=== PATIENT | male | born 1945 | race Two or more races ===

== ENCOUNTER 2020-04-15 04:49 | Inpatient (IN) | payer BC, MEDICARE ==
[2020-04-15] VITALS (9 sets, daily range): BP systolic 145–170; BP diastolic 64–77
[~2020-04-15] VITALS: Ht 177.8 cm; Wt 96.6 kg
--- NOTE | 2020-04-15 08:14 | NUR ---
NURSE NOTES: Received Pt as direct admit from [facility], report from NU Juarez. Pt is in stable condition. No S/S or complaint of distress at this time. AOx4. Asked Dr. Pelletier for admission orders. awaiting response.
[2020-04-15] MEDS ORDERED: BENAZEPRIL HCL20 MG ORAL (09:49)
[2020-04-15] MEDS ORDERED: FLOMAX0.4 MG ORAL (09:49)
[2020-04-15] MEDS ORDERED: OXYBUTYNIN CHLOR5 M2 PO (09:49)
[2020-04-15] MEDS ORDERED: METFORMIN HCL500 M1 ORAL (09:49)
[2020-04-15] MEDS ORDERED: ATORVASTATIN CA20 MG ORAL (09:50)
[2020-04-15] MEDS ORDERED: Miralax 17gm pkt ORAL PRN (10:00)
[2020-04-15] MEDS ORDERED: Promethazine/Codeine 5ml UD ORAL PRN (10:00)
[2020-04-15] MEDS ORDERED: Albuterol/Ipratropium 3ml neb HHN PRN (10:00)
[2020-04-15] MEDS ORDERED: Nitroglycerin Subl 0.4mg tab SL PRN (10:00)
--- NOTE | 2020-04-15 11:31 | NUR ---
ST CLARIFICATION CLINICAL RESOURCE NURSE ORDERS RECEIVED AND ACKNOWLEDGED FROM DR. ESPINOZA FOR ST SPEECH, LANGUAGE, AND COGNITIVE COMMUNICATIVE EVALUATION. UPON FURTHER CHART REVIEW AND DISCUSSION WITH DR. ESPINOZA, ORDER INTENDED FOR CLINICAL RESOURCE NURSE BEDSIDE SWALLOW EVALUATION. CLINICAL RESOURCE NURSE PLANS TO DISCONTINUE ORDER FOR SPEECH, LANGUAGE, AND COGNITIVE COMMUNICATIVE EVALUATION AND PER VERBAL ORDERS FROM DR. ESPINOZA, CHANGE TO ST BEDSIDE SWALLOW EVALUATION. FORMAL EVALUATION REPORT TO FOLLOW. THANK YOU FOR THIS REFERRAL. CLINICAL RESOURCE NURSE [phone]
--- NOTE | 2020-04-15 11:40 | Consultation ---
History of Present Illness General Date patient seen: Apr 15, 2020 Present Illness HPI 74 year old male with hx of Diabetes, and HTN was taken by paramedics to [facility] with CC of intermittent confusion, left arm and leg weakness. He was outside of TPA window on arrival. Pt is transferred to [facility] for further management. Allergies: Coded Allergies: NO ALLERGY INFORMATION AVAILABLE (Verified Allergy, Unknown, 04/15/20) NO KNOWN DRUG ALLERGIES (Verified Allergy, Unknown, 04/15/20) Medication History Scheduled Atorvastatin Calcium* (Atorvastatin Calcium*), 20 MG ORAL DAILY, (Reported) Benazepril Hcl* (Benazepril Hcl*), 20 MG ORAL EVERY 12 HOURS, (Reported) Metformin Hcl* (Metformin Hcl*), 500 MG ORAL TWICE A DAY, (Reported) Oxybutynin Chloride (Oxybutynin Chloride Er), 5 MG PO BEDTIME, (Reported) Tamsulosin HCl (Flomax), 0.4 MG ORAL DAILY, (Reported) Patient History Healthcare decision maker Resuscitation status Advanced Directive on File Past Medical/Surgical History Past Medical/Surgical History: (1) History of diabetes mellitus (2) History of hypertension (3) BPH (benign prostatic hyperplasia) Review of Systems Constitutional: Reports: malaise, weakness Neurological: Reports: numbness, focal weakness Physical Exam General Appearance: WD/WN, no apparent distress Lines, tubes and drains: peripheral HEENT: normocephalic, atraumatic Neck: non-tender, normal alignment, supple Respiratory/Chest: chest wall non-tender, lungs clear, normal breath sounds Breasts: no masses Cardiovascular/Chest: normal rate, regular rhythm Abdomen: normal bowel sounds, non tender Genitourinary/Rectal: normal genital exam, normal rectal exam Extremities: normal range of motion, non-tender Skin Exam: normal pigmentation Neurologic: city wellness coordinator II-XII grossly normal Last 24 Hour Vital Signs Date Time Temp Pulse Resp B/P (MAP) Pulse Ox O2 Delivery O2 Flow Rate FiO2 04/15/20 09:54 Room Air 04/15/20 08:44 72 Height (Feet): 5 Height (Inches): 10.00 Weight (Pounds): 211 Medications Current Medications Medications (Trade) Dose Ordered Sig/Sukhdeep Route PRN Reason Start Time Stop Time Status Last Admin Dose Admin Acetaminophen (Tylenol) 650 mg Q4H PRN ORAL fever 04/15/20 10:00 8/20/20 09:59 Albuterol/ Ipratropium (Albuterol/ Ipratropium) 3 ml Q4H PRN HHN Shortness of Breath 04/15/20 10:00 04/20/20 09:59 Clonidine HCl (Catapres Tab) 0.1 mg Q4H PRN ORAL For High Blood Pressure 04/15/20 10:00 07/14/20 09:59 Dextrose (Dextrose 50%) 25 ml Q30M PRN IV Hypoglycemia 04/15/20 10:00 07/14/20 09:59 Dextrose (Dextrose 50%) 50 ml Q30M PRN IV Hypoglycemia 04/15/20 10:00 07/14/20 09:59 Heparin Sodium (Porcine) (Heparin 5000 units/ml) 5,000 units EVERY 12 HOURS SUBQ 04/15/20 10:30 05/30/20 10:29 UNV Nitroglycerin (Ntg) 0.4 mg Q5M X 3 DOSES PRN SL Prn Chest Pain 04/15/20 10:00 05/15/20 09:59 Ondansetron HCl (Zofran) 4 mg Q6H PRN IVP Nausea & Vomiting 04/15/20 10:00 05/15/20 09:59 Polyethylene Glycol (Miralax) 17 gm HSPRN PRN ORAL Constipation 04/15/20 10:00 05/15/20 09:59 Promethazine HCl/ Codeine (Phenergan with Codeine) 5 ml Q4H PRN ORAL For Cough 04/15/20 10:00 05/15/20 09:59 Tamsulosin HCl (Flomax) 0.4 mg BEDTIME ORAL 04/15/20 21:00 05/15/20 20:59 Temazepam (Restoril) 15 mg HSPRN PRN ORAL Insomnia 04/15/20 10:00 04/22/20 09:59 Assessment/Plan Problem List: (1) Acute CVA (cerebrovascular accident) ICD Codes: I63.9 - Cerebral infarction, unspecified SNOMED: 389811268, 560956799 (2) History of diabetes mellitus ICD Codes: Z86.39 - Personal history of other endocrine, nutritional and metabolic disease SNOMED: 119668125 (3) History of hypertension ICD Codes: Z86.79 - Personal history of other diseases of the circulatory system SNOMED: 167758692 (4) BPH (benign prostatic hyperplasia) ICD Codes: N40.0 - Benign prostatic hyperplasia without lower urinary tract symptoms SNOMED: 196206368 Assessment/Plan: telemetry monitoring NPO echocardiogram MRI of brain sliding scale swallow evaluation Monitor BP pt/ot Fritz Pelletier MD Apr 15, 2020 11:40
--- NOTE | 2020-04-15 13:50 | NUR ---
SWALLOW EVALUATION PATIENT REFERRED TO AEROSPACE ASSEMBLER BY DR. ESPINOZA. DYSPHAGIA RISK FACTORS FOR THIS 74 Y.O. AA MALE: ACUTE: Acute CVA. H/O: HTN, DM, BPH. RELEVANT MEDS: Zofran (Nausea). Albuterol (SOB). Restoril (Insomnia). VITALS ON ROOM AIR: HR: 88; RR: 18; SP02 98% PLOF: Patient reports living with spouse, no history of swallowing difficulties and previously consumed regular solids with thin liquids. POLST: DNR; wishes for no means of alternative nutrition/hydration. Patient seen at bedside, is alert and able to appropriately express wants and needs without difficulties. Patient has intact natural dentition, oral motor ROM and coordination WFL with speech intelligibility being >90%. Patient is on room air and VSS for duration of the session. Patient reporting ongoing headaches prior to hospitalization for 1 week. INITIAL IMPRESSIONS: Appears to have a grossly functional swallow with timely and adequate bolus formulation control, intact and efficient rotary mastication, A-P transit to BOT appears good, no oral residuals visualization. Laryngeal elevation present upon palpation and appears WFL. No overt s/s of aspiration with regular solids or thin liquids. Vocal quality remained clear. PATIENT HAS RISK FOR ASPIRATION GIVEN ACUTE CVA. AEROSPACE ASSEMBLER educated RN Patient on safe swallow strategies, recommendations, and results of the evaluation. RECOMMENDATIONS: 1. Regular Solids with Thin Liquids. Type/supplements per RD; would appreciate recs. 2. please encourage/assist Patient with oral care. 3. AEROSPACE ASSEMBLER plans to f/u with Patient 1-2x while in house to train and educate Patient and caregiver on aspiration precautions and safe swallow strategies and for diet tolerance. (Complete report can be found in care activity section) Thank you for this referral. AEROSPACE ASSEMBLER [phone]
--- NOTE | 2020-04-15 14:30 | NUR ---
NURSE NOTES: Pt is stable with no S/S or complaints of distress at this time. Pt off 2E telemetry and going to MRI scan w/ Willian.
--- NOTE | 2020-04-15 15:00 | NUR ---
NURSE NOTES: Notified Dr. Pelletier for patient's MRI urgent result. MD ordered chest xray, urine culture, blood culture x 2, physician consult with Dr. Rangel/Dr Robison. Dr. Robison ordered Vanco pharmacy dose and zosyn 3.375mg. Orders acknowledged and carried out.
[2020-04-15 15:21] LABS: APPEARANCE,URINE CLEAR; BILIRUBIN, URINE NEGATIVE (NEGATIVE); COLOR,URINE PALE YELLOW; GLUCOSE, URINE (UA) 1+ (NEGATIVE); KETONES,URINE NEGATIVE (NEGATIVE); LEUKOCYTE ESTERASE ,URINE NEGATIVE (NEGATIVE); NITRITE,URINE NEGATIVE (NEGATIVE); PH,URINE 5 (4.5-8.0); PROTEIN,URINE 1+ (NEGATIVE); UROBILINOGEN,URINE NORMAL MG/DL (0.0-1.0)
--- NOTE | 2020-04-15 16:28 | Diagnostic Imaging Report ---
Indication: Weakness, altered mental status Technique: MRI the brain performed utilizing T1 sagittal, T2 axial, T1 FLAIR axial, T2 FLAIR axial, T2*GRE and diffusion axial images without gadolinium. Comparison: None available Findings: Study is limited due to significant motion artifact. There is confluent restricted diffusion in the right occipital lobe and right temporal lobe, which extends into the right basal ganglia and right thalamus. No evidence of acute intracranial hemorrhage. No evidence of mass effect including cisternal effacement or midline shift. The sulci, ventricles and cisterns are prominent consistent with atrophy. Periventricular and supratentorial white matter T2 hyperintensity are seen without mass effect, likely representing chronic ischemic microvascular disease. There is no shift of midline structures. No significant extra-axial collections of fluid or blood are demonstrated. The sella is mildly expanded, and contains a T1 hyperintense structure measuring 9 mm x 11 mm x 12 mm. Visualized mastoid air cells and paranasal sinuses are unremarkable. No focal bony calvarium or soft tissue lesions are seen. Impression: The study due to significant motion artifact. Within these limitations: 1. Acute right SERVICE BAR CASHIER territorial infarct. 2. Small sellar mass with signal characteristics suggesting pituitary adenoma. Consider further evaluation with dedicated MRI with contrast utilizing pituitary protocol on nonemergent basis. Critical findings reported to treating NU Bass at 1615 on 04/15/2020
[2020-04-15 18:48] LABS: BASOPHILS % (AUTO) 1.7 % (0.0-2.0); EOSINOPHILS % (AUTO) 1.3 % (0.0-3.0); HEMATOCRIT 40.7 % (42.0-52.0); HEMOGLOBIN 13.2 G/DL (14.2-18.0); LYMPHOCYTES % (AUTO) 29.5 % (20.0-45.0); MEAN CORPUSCULAR VOLUME 86 FL (80-99); MONOCYTES % (AUTO) 7.2 % (1.0-10.0); NEUTROPHILS % (AUTO) 60.2 % (45.0-75.0); PLATELET COUNT 170 K/UL (150-450); RED BLOOD COUNT 4.72 M/UL (4.70-6.10); RED CELL DISTRIBUTION WIDTH 14.3 % (11.6-14.8); WHITE BLOOD COUNT 4.6 K/UL (4.8-10.8)
--- NOTE | 2020-04-15 18:53 | History & Physical ---
History and Physical History & Physicial Dictated for Int Med-Dr Burch no. [id number] Masoud Zhu MD Apr 15, 2020 18:53
[2020-04-15 18:58] LABS: ANION GAP 11 mmol/L (5-15); BLOOD UREA NITROGEN 17 mg/dL (7-18); CALCIUM 9.5 MG/DL (8.5-10.1); CARBON DIOXIDE 25 MMOL/L (21-32); CHLORIDE 104 MMOL/L (98-107); CREATININE 1.2 MG/DL (0.55-1.30); POTASSIUM 3.9 MMOL/L (3.5-5.1); SODIUM 140 MMOL/L (136-145)
[2020-04-15] MEDS ORDERED: Vancomycin 1.5gm/NS Premix q24h IVPB SCH (19:00)
--- NOTE | 2020-04-15 19:36 | NUR ---
HAND-OFF: Report given to NU Perez. Patients' stable, plan of care endorsed.
--- NOTE | 2020-04-15 19:50 | NUR ---
NURSE NOTES: Received pt from NU Saldaña. Pt awake, alert, and talkative. Bed in lowest position. Call light within reach. Will continue to monitor.
--- NOTE | 2020-04-15 20:15 | History and Physical Report ---
DATE OF ADMISSION: 04/15/2020 CHIEF COMPLAINT: The patient is a 74-year-old male who presents with a chief complaint of left-sided weakness. HISTORY OF PRESENT ILLNESS: Began 1 to 2 days prior to admission, the patient began to experience confusion. The patient states one day previously he began to experience left-sided weakness. The patient initially presented to [facility] emergency room. The patient was transferred to [facility] for insurance purposes. The patient was admitted with left-sided weakness to rule out acute cerebrovascular accident. REVIEW OF SYSTEMS: CONSTITUTIONAL: The patient denies weight loss or weight gain. The patient denies fevers or chills. HEENT: The patient denies ear or throat pain. The patient denies headache. CARDIOVASCULAR: The patient denies palpitations or chest pain. CHEST: The patient denies wheeze or shortness of breath. ABDOMEN: The patient denies nausea, vomiting, diarrhea, or constipation. GENITOURINARY: The patient denies dysuria or increased frequency of urination. NEUROMUSCULAR: The patient denies seizures. The patient complains of left-sided weakness as above. PAST MEDICAL HISTORY: Significant for: 1. Hypertension. 2. Diabetes type 2. PAST SURGICAL HISTORY: The patient denies. CURRENT MEDICATIONS: 1. Amlodipine 5 mg p.o. daily. 2. Atorvastatin 40 mg p.o. daily. 3. Calcium/vitamin-D one tablet p.o. daily. 4. Disulfiram 500 mg p.o. daily. 5. Fenofibrate mg p.o. daily. 6. Gabapentin 600 mg p.o. three times daily. 7. Gemfibrozil 600 mg p.o. twice daily. 8. Glipizide 10 mg p.o. twice daily. 9. [place] 5/325 mg one tablet p.o. q.4 hours p.r.n. 10. Lantus insulin of an unknown dose at bedtime. 11. Lisinopril 20 mg p.o. daily. 12. Metformin 1000 mg p.o. twice daily. 13. Metoprolol 50 mg p.o. twice daily. 14. Niacin 500 mg p.o. daily. 15. Pantoprazole 40 mg p.o. daily. 16. Zocor 5 mg p.o. at bedtime. 17. Sitagliptin 50 mg p.o. daily. 18. Carafate 1 g p.o. four times daily. 19. Tamsulosin 0.4 mg p.o. daily. ALLERGIES: No known drug allergies. SOCIAL HISTORY: The patient is single, lives alone. The patient denies tobacco or alcohol use. PHYSICAL EXAMINATION: VITAL SIGNS: Temperature 97.9, respirations 18, pulse 68, blood pressure 130/56, oxygen saturation 98% on room air. GENERAL: The patient is well-developed and well-nourished male in no apparent distress. HEENT: Eyes, pupils are equal and responsive to light and accommodation. Extraocular movements are intact. NECK: Supple without lymphadenopathy. CHEST: Lungs are clear to auscultation bilaterally without wheezes or rales. CARDIOVASCULAR: Regular rhythm and rate. S1 and S2 normal without murmurs, rubs, or gallops. ABDOMEN: Soft, nontender, and nondistended. Positive bowel sounds. No evidence of hepatosplenomegaly. Currently, no rebound or guarding noted. EXTREMITIES: Negative for clubbing, cyanosis, or edema. RECTAL/GENITAL: Not performed. NEUROLOGIC: Motor strength is 4/5 on the left and 5/5 on the right. Deep tendon reflexes are 2+ plantar. LABORATORY STUDIES: WBC 7.2, hemoglobin 13.7, hematocrit 41.2, platelets 211,000. Sodium 141, potassium 3.4, chloride 107, CO2 24, BUN 15, creatinine 0.99, glucose was initially 38. Troponin less than 0.02. CT scan of the brain at [place] revealed large area of hypoattenuation of the right occipital and temporal lobes consistent with acute cerebral infarct. ASSESSMENT: This is a 74-year-old male. 1. Altered mental status. 2. Left hemiplegia. 3. Acute cerebrovascular accident. 4. Hypertension. 5. Diabetes type 2. 6. Hypoglycemia. 7. Hypercholesteremia. TREATMENT: 1. Left hemiplegia/acute cerebrovascular accident. An MRI of the brain is pending. Neurology consultation has been obtained with Dr. Toby Maynard. We will follow recommendations of Neurology. 2. Altered mental status. This may be secondary to acute cerebrovascular accident versus hypoglycemia. 3. Hypertension. Continue antihypertensive medication as above. 4. Diabetes type 2. The patient has been placed on NovoLog sliding scale. 5. Hypercholesterolemia. Continue atorvastatin as above. Masoud Zhu M.D. DR: Pablo JOB#: [id number] CC:
[2020-04-15] MEDS: Piperacillin/Tazobactam 3.375 GM in NS 110 ML IVPB SCH (20:28)
[2020-04-15] MEDS: Tamsulosin 0.4mg cap ORAL SCH (20:29)
[2020-04-15] MEDS: Heparin 5000 units/ml inj SUBQ SCH ×2 (20:30→21:00)
[2020-04-15] MEDS: NovoLOG Insulin Flexpen SUBQ SCH (21:29)
--- NOTE | 2020-04-15 21:30 | NUR ---
NURSE NOTES: pt had unwitnessed fall. LEAD SOFTWARE ENGINEER called. Incident report done. Pts vitals stable. Sbp in 160s. Pt alert and appropriate. MD called. Awaiting call back.
--- NOTE | 2020-04-15 23:57 | NUR ---
NURSE NOTES: Called and spoke with of patient and informed her of pts fall. Will continue to monitor.
[2020-04-16] VITALS (16 sets, daily range): BP systolic 100–172; BP diastolic 62–76
--- NOTE | 2020-04-16 | NUR ---
NURSE NOTES: Pts rapid swab came back negative. Informed Dr. Burch. Awaiting call back.
--- NOTE | 2020-04-16 03:00 | NUR ---
NURSE NOTES: Dr. Burch suggested that no CT of the head is needed since pt didn't complain of head pain.
[2020-04-16] MEDS: Piperacillin/Tazobactam 3.375 GM in NS 110 ML IVPB SCH ×3 (05:13→22:26)
[2020-04-16] MEDS: NovoLOG Insulin Flexpen SUBQ SCH ×4 (05:19→20:36)
[2020-04-16 06:49] LABS: BASOPHILS % (AUTO) 2.6 % (0.0-2.0); EOSINOPHILS % (AUTO) 1.7 % (0.0-3.0); HEMATOCRIT 41.2 % (42.0-52.0); HEMOGLOBIN 13.2 G/DL (14.2-18.0); LYMPHOCYTES % (AUTO) 27.5 % (20.0-45.0); MEAN CORPUSCULAR VOLUME 87 FL (80-99); MONOCYTES % (AUTO) 7.4 % (1.0-10.0); NEUTROPHILS % (AUTO) 60.8 % (45.0-75.0); PLATELET COUNT 172 K/UL (150-450); RED BLOOD COUNT 4.74 M/UL (4.70-6.10); RED CELL DISTRIBUTION WIDTH 13.3 % (11.6-14.8); WHITE BLOOD COUNT 3.9 K/UL (4.8-10.8)
--- NOTE | 2020-04-16 07:02 | NUR ---
HAND-OFF: Report given to NU Bass. Pt stable.
[2020-04-16 07:15] LABS: AMMONIA 13 umol/L (11-32)
--- NOTE | 2020-04-16 07:26 | NUR ---
NURSE NOTES: Received report from NU Perez. Pt is found stable and resting in bed. Pt education regarding falls reinforced. Pt bed locked and at lowest setting, adequate lighting, yellow gown applied, and call light in reach. R and L hand 20g IV still dry and intact, asymptomatic.
[2020-04-16 07:32] LABS: ANION GAP 10 mmol/L (5-15); BLOOD UREA NITROGEN 11 mg/dL (7-18); CALCIUM 9.4 MG/DL (8.5-10.1); CARBON DIOXIDE 27 MMOL/L (21-32); CHLORIDE 106 MMOL/L (98-107); CREATININE 1.1 MG/DL (0.55-1.30); POTASSIUM 3.7 MMOL/L (3.5-5.1); SODIUM 143 MMOL/L (136-145)
[2020-04-16 07:44] LABS: ALANINE AMINOTRANSFERASE 35 U/L (12-78); ALBUMIN 3.8 G/DL (3.4-5.0); ALBUMIN/GLOBULIN RATIO 1.1 (1.0-2.7); ALKALINE PHOSPHATASE 78 U/L (46-116); ASPARTATE AMINO TRANSFERASE 24 U/L (15-37); BILIRUBIN,TOTAL 0.8 MG/DL (0.2-1.0); CHOLESTEROL 199 MG/DL (< 200); HDL CHOLESTEROL 36 MG/DL (40-60); TRIGLYCERIDES 190 MG/DL (30-150)
[2020-04-16] MEDS: Vancomycin 750mg/NS 275ml IVPB SCH ×4 (08:34→20:01)
[2020-04-16] MEDS: Heparin 5000 units/ml inj SUBQ SCH ×3 (09:00→20:35)
[2020-04-16] MEDS ORDERED: Tamsulosin 0.4mg cap ORAL SCH (09:00)
--- NOTE | 2020-04-16 09:50 | NUR ---
PT EVALUATION NOTE Patient seen for initial evaluation. Patient presents with generalized weakness, impaired balance, and impaired coordination which affects patient's ability to perform mobility tasks safely. Patient requires min/mod assist for bed mobility skills and transfers. Patient able to ambulate 12 ft with unsteady gait, requires min assist to manage FWW, is at risk for falls. Patient will benefit from skilled inpatient PT intervention to increase strength and balance for improved level of functional mobility and safety. Recommend discharge to ARU for continued rehab once medically cleared by MD. DME needs to be determined, patient may need assistive device for ambulation based on patient's progress. Addendum: 04/16/20 at 1227 by YURIY HERNANDEZ PT Amended: Links added.
--- NOTE | 2020-04-16 10:35 | Diagnostic Imaging Report ---
Procedure: XRAY Chest 1v Reason for study: Reason For Exam: COUGH Comparison films: None. FINDINGS: A single one view chest is obtained. Vascularity is normal. The lung melton are clear bilaterally. Cardiac and mediastinal silhouette are within normal limits. CP angles are sharp. The bony thorax appear unremarkable. IMPRESSION: NO ACUTE CARDIOPULMONARY DISEASE.
--- NOTE | 2020-04-16 11:49 | Pulmonology Progress Note ---
Subjective ROS Limited/Unobtainable: No Interval Events: doing better Allergies: Coded Allergies: NO ALLERGY INFORMATION AVAILABLE (Verified Allergy, Unknown, 04/15/20) NO KNOWN DRUG ALLERGIES (Verified Allergy, Unknown, 04/15/20) Objective Last 24 Hour Vital Signs Date Time Temp Pulse Resp B/P (MAP) Pulse Ox O2 Delivery O2 Flow Rate FiO2 04/16/20 10:00 96.1 68 17 148/70 (96) 96 04/16/20 09:18 81 04/16/20 09:00 98.8 72 18 150/64 (92) 96 04/16/20 08:00 Room Air 04/16/20 08:00 97.5 81 18 100/76 (84) 95 04/16/20 07:14 99.1 04/16/20 07:00 99.1 79 150/72 (98) 98 04/16/20 06:23 101.7 86 156/71 (99) 96 04/16/20 05:07 82 144/67 (92) 96 04/16/20 04:00 79 04/16/20 04:00 80 159/69 (99) 94 04/16/20 02:59 81 147/62 (90) 98 04/16/20 02:10 83 163/73 (103) 04/16/20 01:08 98.8 80 18 150/64 (92) 98 04/16/20 00:51 97.7 96 Room Air 04/16/20 00:05 81 18 96 04/16/20 00:00 83 04/15/20 23:50 81 170/75 (106) 04/15/20 23:00 82 164/76 (105) 04/15/20 22:30 83 168/71 (103) 04/15/20 22:00 84 163/64 (97) 04/15/20 21:30 85 145/67 (93) 04/15/20 21:00 Room Air 04/15/20 20:52 160/70 (100) 04/15/20 20:00 111 04/15/20 20:00 97.7 89 19 148/69 (95) 96 04/15/20 16:00 71 04/15/20 16:00 100.4 95 18 152/65 (94) 97 04/15/20 12:00 99.4 88 18 147/77 (100) 98 04/15/20 12:00 69 Intake and Output 04/15/20 04/16/20 19:00 07:00 Intake Total 770 ml Balance 770 ml Intake Oral 320 ml Other 450 ml # Voids 3 3 General Appearance: WD/WN, no acute distress HEENT: normocephalic, atraumatic Respiratory: chest wall non-tender, lungs clear Cardiovascular: normal peripheral pulses, normal rate, regular rhythm Abdomen: normal bowel sounds, soft, non tender, no organomegaly Genitourinary: normal external genitalia Extremities: no cyanosis, no clubbing Skin: no lesions Microbiology Date/Time Source Procedure Growth Status 04/15/20 21:30 Nasopharynx SARS-CoV-2 RdRp Gene Assay - Final Complete 04/15/20 21:30 Urine,Clean Catch Urine Culture - Preliminary NO GROWTH Resulted Laboratory Tests 04/15/20 15:00: Urine Color Pale yellow, Urine Appearance Clear, Urine pH 5, Urine Specific [place] 1.015, Urine Protein 1+H, Urine Glucose (UA) 1+H, Urine Ketones Negative , Urine Blood Negative, Urine Nitrite Negative, Urine Bilirubin Negative, Urine Urobilinogen Normal, Urine Leukocyte Esterase Negative, Urine RBC 0-2H, Urine WBC 0-2, Urine Squamous Epithelial Cells None, Urine Bacteria Few 04/15/20 18:15: White Blood Count 4.6L, Red Blood Count 4.72, Hemoglobin 13.2L, Hematocrit 40.7L , Mean Corpuscular Volume 86, Mean Corpuscular Hemoglobin 28.1, Mean Corpuscular Hemoglobin Concent 32.6, Red Cell Distribution Width 14.3, Platelet Count 170, Mean Platelet Volume 9.1, Neutrophils (%) (Auto) 60.2, Lymphocytes (% ) (Auto) 29.5, Monocytes (%) (Auto) 7.2, Eosinophils (%) (Auto) 1.3, Basophils ( %) (Auto) 1.7, Sodium Level 140, Potassium Level 3.9, Chloride Level 104, Carbon Dioxide Level 25, Anion Gap 11, Blood Urea Nitrogen 17, Creatinine 1.2, Estimat Glomerular Filtration Rate 59.3, Glucose Level 304H, Hemoglobin A1c 9.9H , Calcium Level 9.5 04/16/20 05:15: POC Whole Blood Glucose [Pending] 04/16/20 06:02: White Blood Count 3.9L, Red Blood Count 4.74, Hemoglobin 13.2L, Hematocrit 41.2L , Mean Corpuscular Volume 87, Mean Corpuscular Hemoglobin 27.8, Mean Corpuscular Hemoglobin Concent 32.0, Red Cell Distribution Width 13.3, Platelet Count 172, Mean Platelet Volume 9.5, Neutrophils (%) (Auto) 60.8, Lymphocytes (% ) (Auto) 27.5, Monocytes (%) (Auto) 7.4, Eosinophils (%) (Auto) 1.7, Basophils ( %) (Auto) 2.6H, Sodium Level 143, Potassium Level 3.7, Chloride Level 106, Carbon Dioxide Level 27, Anion Gap 10, Blood Urea Nitrogen 11, Creatinine 1.1, Estimat Glomerular Filtration Rate > 60, Glucose Level 283H, Hemoglobin A1c 9.8H , Calcium Level 9.4, Prothrombin Time 11.2, Prothromb Time International Ratio 1.0, Activated Partial Thromboplast Time 23, Total Bilirubin 0.8, Aspartate Amino Transf (AST/SGOT) 24, Alanine Aminotransferase (ALT/SGPT) 35, Alkaline Phosphatase 78, Ammonia 13, Total Protein 7.2, Albumin 3.8, Globulin 3.4, Albumin/Globulin Ratio 1.1, Triglycerides Level 190H, Cholesterol Level 199, LDL Cholesterol 138H, HDL Cholesterol 36L, Cholesterol/HDL Ratio 5.5H, Thyroid Stimulating Hormone (TSH) 1.330 Current Medications Medications (Trade) Dose Ordered Sig/Sukhdeep Route PRN Reason Start Time Stop Time Status Last Admin Dose Admin Acetaminophen (Tylenol) 650 mg Q4H PRN ORAL fever 04/15/20 10:00 05/15/20 09:59 04/16/20 06:44 Albuterol/ Ipratropium (Albuterol/ Ipratropium) 3 ml Q4H PRN HHN Shortness of Breath 04/15/20 10:00 04/20/20 09:59 Clonidine HCl (Catapres Tab) 0.1 mg Q4H PRN ORAL For High Blood Pressure 04/15/20 10:00 07/14/20 09:59 Dextrose (Dextrose 50%) 25 ml Q30M PRN IV Hypoglycemia 04/15/20 17:30 07/14/20 17:29 Dextrose (Dextrose 50%) 50 ml Q30M PRN IV Hypoglycemia 04/15/20 17:30 07/14/20 17:29 Heparin Sodium (Porcine) (Heparin 5000 units/ml) 5,000 units EVERY 12 HOURS SUBQ 04/15/20 21:00 05/30/20 20:59 04/16/20 09:14 Insulin Aspart (NovoLOG) BEFORE MEALS AND HS SUBQ 04/15/20 21:00 07/14/20 20:59 04/16/20 05:19 Nitroglycerin (Ntg) 0.4 mg Q5M X 3 DOSES PRN SL Prn Chest Pain 04/15/20 10:00 05/15/20 09:59 Ondansetron HCl (Zofran) 4 mg Q6H PRN IVP Nausea & Vomiting 04/15/20 10:00 05/15/20 09:59 Piperacillin Sod/ Tazobactam Sod 3.375 gm/Sodium Chloride 110 ml @ 27.5 mls/hr EVERY 8 HOURS IVPB 04/15/20 20:00 04/20/20 19:59 04/16/20 05:13 Polyethylene Glycol (Miralax) 17 gm HSPRN PRN ORAL Constipation 04/15/20 10:00 05/15/20 09:59 Promethazine HCl/ Codeine (Phenergan with Codeine) 5 ml Q4H PRN ORAL For Cough 04/15/20 10:00 05/15/20 09:59 Tamsulosin HCl (Flomax) 0.4 mg BEDTIME ORAL 04/15/20 21:00 05/15/20 20:59 04/15/20 20:29 Temazepam (Restoril) 15 mg HSPRN PRN ORAL Insomnia 04/15/20 10:00 04/22/20 09:59 Vancomycin HCl ([facility] pharmacy to dose) 1 ea DAILY PRN MISC Per rx protocol 04/15/20 17:45 05/15/20 17:44 Vancomycin HCl 750 mg/Sodium Chloride 275 ml @ 183.333 mls/hr Q12HR@0800,2000 IVPB 04/16/20 08:00 04/21/20 07:59 04/16/20 08:34 Assessment/Plan Problems: (1) Acute CVA (cerebrovascular accident) (2) History of diabetes mellitus (3) History of hypertension (4) BPH (benign prostatic hyperplasia) (5) Pituitary adenoma (6) Fever Assessment/Plan srivastava culture cxr reviewed, EDWARD swallow study reviewed, regular diet with thick liquid were recommended. echocardiogram reviewed, mild Diastolic LV dysfunction MRI of brain reviewed: Pituitary adenoma visualized, Endo consult requested sliding scale Monitor BP, add lisinopril 10 mg qd pt/ot pending Fritz Pelletier MD Apr 16, 2020 11:49
--- NOTE | 2020-04-16 12:10 | NUR ---
ST NOTE AND DISCHARGE SUMMARY. Patient seen at bedside, alert and on room air. VSS for duration on the session. Patient continues to be able to communicate appropriately, speech is clear and language is cohesive. Per RN, Patient continues to consume current diet and PO medications without overt s/s of aspiration. Patient seen at bedside, completed Carmen swallow protocol (3 oz sequential drinking) without overt s/s of aspiration. Patient educated further on aspiration risks and precautions. No further BOOSTER PUMP OPERATOR intervention indicated at this time, swallow appearing WFL. BOOSTER PUMP OPERATOR tx summary: Patient admitted on 04/15/[address] [facility] for acute CVA. Initial swallow evaluation orders received on 04/15/[address] Pelletier. INITIAL IMPRESSIONS: Appears to have a grossly functional swallow with timely and adequate bolus formulation control, intact and efficient rotary mastication, A-P transit to BOT appears good, no oral residuals visualization. Laryngeal elevation present upon palpation and appears WFL. No overt s/s of aspiration with regular solids or thin liquids. Vocal quality remained clear. Patient recommended a Regular Solids with Thin Liquids diet, seen for f/u session on 04/16/20 with no further BOOSTER PUMP OPERATOR intervention indicated at this time; Patient continues to tolerate PO without overt s/s of aspiration. Patient is aware of safe swallow strategies and aspiration precautions. Thank you for this referral! BOOSTER PUMP OPERATOR [phone]
--- NOTE | 2020-04-16 12:38 | Consultation ---
History of Present Illness General Date patient seen: Apr 16, 2020 Present Illness HPI 74 y/o M with hx of Dm2, HTN, BPH, HLD was transferred from [facility] to [facility] on 04/15/20 with intermittent confusion, left arm and leg weakness. Was a stroke alert but out of the window for TPA Allergies: Coded Allergies: NO ALLERGY INFORMATION AVAILABLE (Verified Allergy, Unknown, 04/15/20) NO KNOWN DRUG ALLERGIES (Verified Allergy, Unknown, 04/15/20) Medication History Scheduled Atorvastatin Calcium* (Atorvastatin Calcium*), 20 MG ORAL DAILY, (Reported) Benazepril Hcl* (Benazepril Hcl*), 20 MG ORAL EVERY 12 HOURS, (Reported) Metformin Hcl* (Metformin Hcl*), 500 MG ORAL TWICE A DAY, (Reported) Oxybutynin Chloride (Oxybutynin Chloride Er), 5 MG PO BEDTIME, (Reported) Tamsulosin HCl (Flomax), 0.4 MG ORAL DAILY, (Reported) Patient History Healthcare decision maker Resuscitation status Advanced Directive on File Patient History Narrative Pmhx: as above Shx: The patient is single, lives alone. The patient denies tobacco or alcohol use. Fhx: non contributory Review of Systems All Other Systems: negative except mentioned in HPI Physical Exam Physical Exam Narrative GENERAL: The patient is well-developed and well-nourished male in no apparent distress. HEENT: Eyes, pupils are equal and responsive to light and accommodation. Extraocular movements are intact. NECK: Supple without lymphadenopathy. CHEST: Lungs are clear to auscultation bilaterally without wheezes or rales. CARDIOVASCULAR: Regular rhythm and rate. S1 and S2 normal without murmurs, rubs, or gallops. ABDOMEN: Soft, nontender, and nondistended. Positive bowel sounds. No evidence of hepatosplenomegaly. Currently, no rebound or guarding noted. EXTREMITIES: Negative for clubbing, cyanosis, or edema. Last 24 Hour Vital Signs Date Time Temp Pulse Resp B/P (MAP) Pulse Ox O2 Delivery O2 Flow Rate FiO2 04/16/20 11:49 98.2 78 18 153/70 (97) 97 04/16/20 10:00 96.1 68 17 148/70 (96) 96 04/16/20 09:00 98.8 72 18 150/64 (92) 96 7/22/20 08:00 81 04/16/20 08:00 Room Air 04/16/20 08:00 97.5 81 18 100/76 (84) 95 04/16/20 07:14 99.1 04/16/20 07:00 99.1 79 150/72 (98) 98 04/16/20 06:23 101.7 86 156/71 (99) 96 04/16/20 05:07 82 144/67 (92) 96 04/16/20 04:00 79 04/16/20 04:00 80 159/69 (99) 94 04/16/20 02:59 81 147/62 (90) 98 04/16/20 02:10 83 163/73 (103) 04/16/20 01:08 98.8 80 18 150/64 (92) 98 04/16/20 00:51 97.7 96 Room Air 04/16/20 00:05 81 18 96 04/16/20 00:00 83 04/15/20 23:50 81 170/75 (106) 04/15/20 23:00 82 164/76 (105) 04/15/20 22:30 83 168/71 (103) 04/15/20 22:00 84 163/64 (97) 04/15/20 21:30 85 145/67 (93) 04/15/20 21:00 Room Air 04/15/20 20:52 160/70 (100) 04/15/20 20:00 111 04/15/20 20:00 97.7 89 19 148/69 (95) 96 04/15/20 16:00 71 04/15/20 16:00 100.4 95 18 152/65 (94) 97 Intake and Output 04/15/20 04/16/20 19:00 07:00 Intake Total 770 ml Balance 770 ml Intake Oral 320 ml Other 450 ml # Voids 3 3 Laboratory Tests Test 04/15/20 15:00 04/15/20 18:15 04/16/20 05:15 04/16/20 06:02 Urine Color Pale yellow Urine Appearance Clear Urine pH 5 (4.5-8.0) Urine Specific [place] 1.015 (1.005-1.035) Urine Protein 1+ (NEGATIVE) H Urine Glucose (UA) 1+ (NEGATIVE) H Urine Ketones Negative (NEGATIVE) Urine Blood Negative (NEGATIVE) Urine Nitrite Negative (NEGATIVE) Urine Bilirubin Negative (NEGATIVE) Urine Urobilinogen Normal MG/DL (0.0-1.0) Urine Leukocyte Esterase Negative (NEGATIVE) Urine RBC 0-2 /HPF (0 - 0) H Urine WBC 0-2 /HPF (0 - 0) Urine Squamous Epithelial Cells None /LPF (NONE/OCC) Urine Bacteria Few /HPF (NONE) White Blood Count 4.6 K/UL (4.8-10.8) L 3.9 K/UL (4.8-10.8) L Red Blood Count 4.72 M/UL (4.70-6.10) 4.74 M/UL (4.70-6.10) Hemoglobin 13.2 G/DL (14.2-18.0) L 13.2 G/DL (14.2-18.0) L Hematocrit 40.7 % (42.0-52.0) L 41.2 % (42.0-52.0) L Mean Corpuscular Volume 86 FL (80-99) 87 FL (80-99) Mean Corpuscular Hemoglobin 28.1 PG (27.0-31.0) 27.8 PG (27.0-31.0) Mean Corpuscular Hemoglobin Concent 32.6 G/DL (32.0-36.0) 32.0 G/DL (32.0-36.0) Red Cell Distribution Width 14.3 % (11.6-14.8) 13.3 % (11.6-14.8) Platelet Count 170 K/UL (150-450) 172 K/UL (150-450) Mean Platelet Volume 9.1 FL (6.5-10.1) 9.5 FL (6.5-10.1) Neutrophils (%) (Auto) 60.2 % (45.0-75.0) 60.8 % (45.0-75.0) Lymphocytes (%) (Auto) 29.5 % (20.0-45.0) 27.5 % (20.0-45.0) Monocytes (%) (Auto) 7.2 % (1.0-10.0) 7.4 % (1.0-10.0) Eosinophils (%) (Auto) 1.3 % (0.0-3.0) 1.7 % (0.0-3.0) Basophils (%) (Auto) 1.7 % (0.0-2.0) 2.6 % (0.0-2.0) H Sodium Level 140 MMOL/L (136-145) 143 MMOL/L (136-145) Potassium Level 3.9 MMOL/L (3.5-5.1) 3.7 MMOL/L (3.5-5.1) Chloride Level 104 MMOL/L (98-107) 106 MMOL/L (98-107) Carbon Dioxide Level 25 MMOL/L (21-32) 27 MMOL/L (21-32) Anion Gap 11 mmol/L (5-15) 10 mmol/L (5-15) Blood Urea Nitrogen 17 mg/dL (7-18) 11 mg/dL (7-18) Creatinine 1.2 MG/DL (0.55-1.30) 1.1 MG/DL (0.55-1.30) Estimat Glomerular Filtration Rate 59.3 mL/min (>60) > 60 mL/min (>60) Glucose Level 304 MG/DL (74-106) H 283 MG/DL (74-106) H Hemoglobin A1c 9.9 % (4.3-6.0) H 9.8 % (4.3-6.0) H Calcium Level 9.5 MG/DL (8.5-10.1) 9.4 MG/DL (8.5-10.1) POC Whole Blood Glucose Pending Prothrombin Time 11.2 SEC (9.30-11.50) Prothromb Time International Ratio 1.0 (0.9-1.1) Activated Partial Thromboplast Time 23 SEC (23-33) Total Bilirubin 0.8 MG/DL (0.2-1.0) Aspartate Amino Transf (AST/SGOT) 24 U/L (15-37) Alanine Aminotransferase (ALT/SGPT) 35 U/L (12-78) Alkaline Phosphatase 78 U/L (46-116) Ammonia 13 umol/L (11-32) Total Protein 7.2 G/DL (6.4-8.2) Albumin 3.8 G/DL (3.4-5.0) Globulin 3.4 g/dL Albumin/Globulin Ratio 1.1 (1.0-2.7) Triglycerides Level 190 MG/DL (30-150) H Cholesterol Level 199 MG/DL (< 200) LDL Cholesterol 138 mg/dL (<100) H HDL Cholesterol 36 MG/DL (40-60) L Cholesterol/HDL Ratio 5.5 (3.3-4.4) H Thyroid Stimulating Hormone (TSH) 1.330 uiU/mL (0.358-3.740) Test 04/16/20 11:41 POC Whole Blood Glucose 287 MG/DL (74-106) H Microbiology Date/Time Source Procedure Growth Status 04/15/20 21:30 Nasopharynx SARS-CoV-2 RdRp Gene Assay - Final Complete 04/15/20 21:30 Urine,Clean Catch Urine Culture - Preliminary NO GROWTH Resulted Height (Feet): 5 Height (Inches): 10.00 Weight (Pounds): 213 Medications Current Medications Medications (Trade) Dose Ordered Sig/Sukhdeep Route PRN Reason Start Time Stop Time Status Last Admin Dose Admin Acetaminophen (Tylenol) 650 mg Q4H PRN ORAL fever 04/15/20 10:00 05/15/20 09:59 04/16/20 06:44 Albuterol/ Ipratropium (Albuterol/ Ipratropium) 3 ml Q4H PRN HHN Shortness of Breath 04/15/20 10:00 04/20/20 09:59 Clonidine HCl (Catapres Tab) 0.1 mg Q4H PRN ORAL For High Blood Pressure 04/15/20 10:00 07/14/20 09:59 Dextrose (Dextrose 50%) 25 ml Q30M PRN IV Hypoglycemia 04/15/20 17:30 07/14/20 17:29 Dextrose (Dextrose 50%) 50 ml Q30M PRN IV Hypoglycemia 04/15/20 17:30 07/14/20 17:29 Heparin Sodium (Porcine) (Heparin 5000 units/ml) 5,000 units EVERY 12 HOURS SUBQ 04/15/20 21:00 05/30/20 20:59 04/16/20 09:14 Insulin Aspart (NovoLOG) BEFORE MEALS AND HS SUBQ 04/15/20 21:00 07/14/20 20:59 04/16/20 11:47 Lisinopril (ZestriL) 10 mg DAILY ORAL 04/17/20 09:00 05/17/20 08:59 Nitroglycerin (Ntg) 0.4 mg Q5M X 3 DOSES PRN SL Prn Chest Pain 04/15/20 10:00 05/15/20 09:59 Ondansetron HCl (Zofran) 4 mg Q6H PRN IVP Nausea & Vomiting 04/15/20 10:00 05/15/20 09:59 Piperacillin Sod/ Tazobactam Sod 3.375 gm/Sodium Chloride 110 ml @ 27.5 mls/hr EVERY 8 HOURS IVPB 04/15/20 20:00 04/20/20 19:59 04/16/20 05:13 Polyethylene Glycol (Miralax) 17 gm HSPRN PRN ORAL Constipation 04/15/20 10:00 05/15/20 09:59 Promethazine HCl/ Codeine (Phenergan with Codeine) 5 ml Q4H PRN ORAL For Cough 04/15/20 10:00 05/15/20 09:59 Tamsulosin HCl (Flomax) 0.4 mg BEDTIME ORAL 04/15/20 21:00 05/15/20 20:59 04/15/20 20:29 Temazepam (Restoril) 15 mg HSPRN PRN ORAL Insomnia 04/15/20 10:00 04/22/20 09:59 Vancomycin HCl (Vanco pharmacy to dose) 1 ea DAILY PRN MISC Per rx protocol 04/15/20 17:45 05/15/20 17:44 Vancomycin HCl 750 mg/Sodium Chloride 275 ml @ 183.333 mls/hr Q12HR@0800,2000 IVPB 04/16/20 08:00 04/21/20 07:59 04/16/20 08:34 Assessment/Plan Assessment/Plan: Abx: IV Vancomycin 04/15- Zosyn 04/15- Assessment: SEpsis vs SIRS- ?source -CXR: no acute disease -u/a neg Fever; improving- r/o COVID19 Mild leukopenia -04/15 rapid COVID neg Acute CVA ?Pituitary adenoma -Brain MRI: 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 Small sellar mass with signal characteristics suggesting pituitary adenoma.Consider further evaluation with dedicated MRI with contrast utilizing pituitary protocol on nonemergent basis. Dm2 HTN BPH HLD Plan: -Continue empiric IV Vancomycin and Zosyn #2 pending cultures -f/u cx -Monitor CBC/CMP, temperatures -COVID19 isolation/testing; send 2nd PCR -aspiration precautions -Neuro eval Thank you for this consultation. Will continue to follow along with you. Discussed with NU. Meryl Robison M.D. Apr 16, 2020 12:38
[2020-04-16] MEDS: metFORMIN 500mg tab ORAL SCH ×2 (13:12→16:52)
[2020-04-16] MEDS: Levemir Flexpen SUBQ SCH (13:18)
--- NOTE | 2020-04-16 13:21 | NUR ---
*-* INSURANCE *-* AVAILABLE CLINICALS HAVE BEEN FAXED TO: [facility]#[id number] P [phone] F [phone] Addendum: 04/17/20 at 1037 by YULI SHAH CM *-* INSURANCE AUTH *-* RECEIVED A CALL FROM ZARINA FISH AUTHORIZED FROM 04/15- # [id number] BENNIEM:ANKUSH
--- NOTE | 2020-04-16 13:22 | Diagnostic Imaging Report ---
Indication: Altered mental status Technique: Grayscale and duplex images of the bilateral extracranial carotid and vertebral arteries Comparison: none Findings: Bilaterally, grayscale and duplex images demonstrate atherosclerotic plaquing resulting in less than 50% diameter narrowing. Normal Doppler flow velocities and waveforms. Patent bilateral vertebral arteries, antegrade flow. Impression: Less than 50% diameter stenosis bilaterally All stenosis was measured based on the NASCET criteria. Velocity criteria are extrapolated from diameter data as defined by the Society of radiologists in ultrasound consensus conference. Radiology 2003:229; 340-346
--- NOTE | 2020-04-16 15:11 | NUR ---
NURSE NOTES: Covid rapid swab sent to lab
--- NOTE | 2020-04-16 16:10 | NUR ---
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
[2020-04-16] MEDS: Nateglinide 60mg tab ORAL SCH (16:52)
--- NOTE | 2020-04-16 17:00 | Consultation ---
DATE OF CONSULTATION: 04/16/2020 ENDOCRINOLOGY CONSULTATION CONSULTING PHYSICIAN: Ramsey Ross MD. REFERRING PHYSICIAN: Fritz Pelletier MD. REASON FOR CONSULTATION: Diabetes management. HISTORY OF PRESENT ILLNESS: Patient is a 74-year-old male with history of diabetes and hypertension who presented to the [facility] with left-sided weakness. He was diagnosed with a stroke. He was outside of the tPA window on arrival. He was transferred to [facility] for observation and treatment. Glucose has been running over 300. A1c is 9.8. Therefore, Endocrinology was consulted in order to assist in the management of diabetes. PAST MEDICAL HISTORY: 1. Diabetes. 2. Hypertension. PAST SURGICAL HISTORY: None. MEDICATIONS: Reviewed and reconciled. For diabetes, the patient was taking metformin and Januvia and Lantus, unknown dose. ALLERGIES TO MEDICATIONS: None. SOCIAL HISTORY: He is single, lives alone. No smoking, alcohol, or drug use. REVIEW OF SYSTEMS: A 12-point review of systems was performed and pertinent positives and negatives as mentioned in present illness. PHYSICAL EXAMINATION: GENERAL: He is awake. VITAL SIGNS: Blood pressure 130/56, pulse of 80, temperature 98.2, respiratory rate 18. HEENT: Pupils are equal and reactive to light. Sclerae anicteric. NECK: No JVD. No thyromegaly. LUNGS: Clear. HEART: Regular rate and rhythm. ABDOMEN: Positive bowel sounds. Soft. EXTREMITIES: No clubbing, cyanosis, or edema. NEUROLOGIC: Left-sided weakness. LABORATORY DATA: Sodium 142, potassium 3.7, chloride 106, bicarb 27, BUN 10, creatinine 1.1, glucose 283. A1c 9.3. TSH 1.3. LDL 138. Urine 1+ protein, 1+ glucose. Coags are normal. CBC shows WBC of 3.9, hemoglobin 13, hematocrit 41.2, platelets of 172. DIAGNOSES: 1. Stroke. 2. Diabetes, out of control. PLAN: 1. Start Levemir 20 units daily. 2. Start metformin 500 mg t.i.d. 3. Start Starlix 60 mg before meals t.i.d. 4. Start Januvia 100 mg daily. 5. Continue NovoLog sliding scale before meals and at bedtime. 6. Hypoglycemia protocol is in order. 7. Further adjustment according to blood glucose values. Thank you, Dr. Pelletier, for the courtesy of this consultation. Ramsey Ross M.D. DR: CLARKE JOB#: [id number] CC:
--- NOTE | 2020-04-16 17:06 | NUR ---
NURSE NOTES: Pt is sitting in bed seeming restless. Pt responses and movements are are delayed than before. Movements do not correlate with his intent and are more rigid and weak. Pt also becomes SOB with exertion. notified. ordered CXR stat and Xanax 0.5 mg PO PRN q6hr for agitation. Orders acknowledged and carried out.
[2020-04-16] MEDS ORDERED: ALPRAZolam 0.5mg tab ORAL PRN (17:15)
--- NOTE | 2020-04-16 17:33 | Diagnostic Imaging Report ---
EXAM: XR Chest, 1 View CLINICAL HISTORY: SOB TECHNIQUE: Frontal view of the chest. COMPARISON: 04/15/2020 FINDINGS: Lungs: Low lung volumes with bronchovascular crowding. Mild retrocardiac opacity, representing atelectasis without or with consolidation. Otherwise no consolidation, pleural effusion, or pneumothorax. Pleural space: See above. Heart: Unremarkable. No cardiomegaly. Mediastinum: Unremarkable. Bones/joints: No acute abnormality IMPRESSION: 1. Low lung volumes with bronchovascular crowding. 2. Mild retrocardiac opacity, representing atelectasis without or with consolidation. 3. Otherwise no acute cardiopulmonary disease. 4. If there is continued concern, recommend frontal and lateral chest radiographs or CT.
--- NOTE | 2020-04-16 18:17 | NUR ---
NURSE NOTES: Post fall assessment. At 1000, Pt was stable and resting in bed. 96.1 F, 148/70, 68 HR, 17 RR, 96% on RA. At 1400, Pt vitals stable: 96.7 F, 154/71, 70 HR, 18 RR, 97% on RA. At 1800, Pt vitals 98.4F, 159/70, 73 HR, 18 RR, 98% on RA. Pt grew more agitated and restless. Pt movement and response became more rigid and uncoordinated. Pt response delayed. Pt given Clonidine PRN for increased BP and Xanax for restlessness/anxiety. Will continue to closely monitor.
--- NOTE | 2020-04-16 18:39 | Internal Med Progress Note ---
Subjective Date of Service: Apr 16, 2020 Physician Name AudraMasoud Attending Physician Celestine Burch MD Current Medications Medications (Trade) Dose Ordered Sig/Sukhdeep Route PRN Reason Start Time Stop Time Status Last Admin Dose Admin Acetaminophen (Tylenol) 650 mg Q4H PRN ORAL fever 04/15/20 10:00 05/15/20 09:59 04/16/20 06:44 Albuterol/ Ipratropium (Albuterol/ Ipratropium) 3 ml Q4H PRN HHN Shortness of Breath 04/15/20 10:00 04/20/20 09:59 Alprazolam (Xanax) 0.5 mg Q6H PRN ORAL agitation 04/16/20 17:15 04/23/20 17:14 04/16/20 18:02 Clonidine HCl (Catapres Tab) 0.1 mg Q4H PRN ORAL For High Blood Pressure 04/15/20 10:00 07/14/20 09:59 04/16/20 18:02 Dextrose (Dextrose 50%) 25 ml Q30M PRN IV Hypoglycemia 04/16/20 12:45 07/15/20 12:44 Dextrose (Dextrose 50%) 50 ml Q30M PRN IV Hypoglycemia 04/16/20 12:45 07/15/20 12:44 Heparin Sodium (Porcine) (Heparin 5000 units/ml) 5,000 units EVERY 12 HOURS SUBQ 04/15/20 21:00 05/30/20 20:59 04/16/20 09:14 Insulin Aspart (NovoLOG) BEFORE MEALS AND HS SUBQ 04/15/20 21:00 07/14/20 20:59 04/16/20 16:55 Insulin Detemir (Levemir) 20 units DAILY SUBQ 04/16/20 14:00 07/15/20 13:59 04/16/20 13:18 Lisinopril (ZestriL) 10 mg DAILY ORAL 04/17/20 09:00 05/17/20 08:59 Metformin HCl (Glucophage) 500 mg TIAC ORAL 04/16/20 13:00 05/16/20 12:59 04/16/20 16:52 Nateglinide (Starlix) 60 mg TIAC ORAL 04/16/20 16:30 05/16/20 16:29 04/16/20 16:52 Nitroglycerin (Ntg) 0.4 mg Q5M X 3 DOSES PRN SL Prn Chest Pain 04/15/20 10:00 05/15/20 09:59 Ondansetron HCl (Zofran) 4 mg Q6H PRN IVP Nausea & Vomiting 04/15/20 10:00 05/15/20 09:59 Piperacillin Sod/ Tazobactam Sod 3.375 gm/Sodium Chloride 110 ml @ 27.5 mls/hr EVERY 8 HOURS IVPB 04/15/20 20:00 04/20/20 19:59 04/16/20 13:13 Polyethylene Glycol (Miralax) 17 gm HSPRN PRN ORAL Constipation 04/15/20 10:00 05/15/20 09:59 Promethazine HCl/ Codeine (Phenergan with Codeine) 5 ml Q4H PRN ORAL For Cough 04/15/20 10:00 05/15/20 09:59 Sitagliptin Phosphate (Januvia) 100 mg ACBREAKFAST ORAL 04/16/20 14:00 05/16/20 13:59 04/16/20 13:15 Tamsulosin HCl (Flomax) 0.4 mg BEDTIME ORAL 04/15/20 21:00 05/15/20 20:59 04/15/20 20:29 Temazepam (Restoril) 15 mg HSPRN PRN ORAL Insomnia 04/15/20 10:00 04/22/20 09:59 Vancomycin HCl (Vanco pharmacy to dose) 1 ea DAILY PRN MISC Per rx protocol 04/15/20 17:45 05/15/20 17:44 Vancomycin HCl 750 mg/Sodium Chloride 275 ml @ 183.333 mls/hr Q12HR@0800,2000 IVPB 04/16/20 08:00 04/21/20 07:59 04/16/20 08:34 Allergies: Coded Allergies: NO ALLERGY INFORMATION AVAILABLE (Verified Allergy, Unknown, 04/15/20) NO KNOWN DRUG ALLERGIES (Verified Allergy, Unknown, 04/15/20) ROS Limited/Unobtainable: No Constitutional: Reports: weakness HEENT: Reports: no symptoms Cardiovascular: Reports: no symptoms Respiratory: Reports: no symptoms Gastrointestinal/Abdominal: Reports: no symptoms Genitourinary: Reports: no symptoms Neurologic/Psychiatric: Reports: no symptoms Subjective 74 YO M admitted with altered mental status and left side weakness. Now acute right post cerebral artery CVA. Cover for Shadi Leung- Dr Burch Objective Last Vital Signs Date Time Temp Pulse Resp B/P (MAP) Pulse Ox O2 Delivery O2 Flow Rate FiO2 04/16/20 18:02 172/71 04/16/20 16:00 98.8 81 18 98 04/16/20 08:00 Room Air Laboratory Tests Test 04/16/20 05:15 04/16/20 06:02 04/16/20 11:41 04/16/20 16:45 POC Whole Blood Glucose Pending 287 MG/DL (74-106) H 267 MG/DL (74-106) H White Blood Count 3.9 K/UL (4.8-10.8) L Red Blood Count 4.74 M/UL (4.70-6.10) Hemoglobin 13.2 G/DL (14.2-18.0) L Hematocrit 41.2 % (42.0-52.0) L Mean Corpuscular Volume 87 FL (80-99) Mean Corpuscular Hemoglobin 27.8 PG (27.0-31.0) Mean Corpuscular Hemoglobin Concent 32.0 G/DL (32.0-36.0) Red Cell Distribution Width 13.3 % (11.6-14.8) Platelet Count 172 K/UL (150-450) Mean Platelet Volume 9.5 FL (6.5-10.1) Neutrophils (%) (Auto) 60.8 % (45.0-75.0) Lymphocytes (%) (Auto) 27.5 % (20.0-45.0) Monocytes (%) (Auto) 7.4 % (1.0-10.0) Eosinophils (%) (Auto) 1.7 % (0.0-3.0) Basophils (%) (Auto) 2.6 % (0.0-2.0) H Prothrombin Time 11.2 SEC (9.30-11.50) Prothromb Time International Ratio 1.0 (0.9-1.1) Activated Partial Thromboplast Time 23 SEC (23-33) Sodium Level 143 MMOL/L (136-145) Potassium Level 3.7 MMOL/L (3.5-5.1) Chloride Level 106 MMOL/L (98-107) Carbon Dioxide Level 27 MMOL/L (21-32) Anion Gap 10 mmol/L (5-15) Blood Urea Nitrogen 11 mg/dL (7-18) Creatinine 1.1 MG/DL (0.55-1.30) Estimat Glomerular Filtration Rate > 60 mL/min (>60) Glucose Level 283 MG/DL (74-106) H Hemoglobin A1c 9.8 % (4.3-6.0) H Calcium Level 9.4 MG/DL (8.5-10.1) Total Bilirubin 0.8 MG/DL (0.2-1.0) Aspartate Amino Transf (AST/SGOT) 24 U/L (15-37) Alanine Aminotransferase (ALT/SGPT) 35 U/L (12-78) Alkaline Phosphatase 78 U/L (46-116) Ammonia 13 umol/L (11-32) Total Protein 7.2 G/DL (6.4-8.2) Albumin 3.8 G/DL (3.4-5.0) Globulin 3.4 g/dL Albumin/Globulin Ratio 1.1 (1.0-2.7) Triglycerides Level 190 MG/DL (30-150) H Cholesterol Level 199 MG/DL (< 200) LDL Cholesterol 138 mg/dL (<100) H HDL Cholesterol 36 MG/DL (40-60) L Cholesterol/HDL Ratio 5.5 (3.3-4.4) H Thyroid Stimulating Hormone (TSH) 1.330 uiU/mL (0.358-3.740) Microbiology Date/Time Source Procedure Growth Status 04/16/20 14:40 Nasopharynx SARS-CoV-2 RdRp Gene Assay - Final Complete 04/15/20 21:30 Nasopharynx SARS-CoV-2 RdRp Gene Assay - Final Complete 04/15/20 21:30 Urine,Clean Catch Urine Culture - Preliminary NO GROWTH Resulted Intake and Output 04/15/20 04/16/20 18:59 06:59 Intake Total 770 ml Balance 770 ml Intake Oral 320 ml Other 450 ml # Voids 3 3 Objective PHYSICAL EXAMINATION: GENERAL: The patient is well-developed and well-nourished male in no apparent distress. HEENT: Eyes, pupils are equal and responsive to light and accommodation. Extraocular movements are intact. NECK: Supple without lymphadenopathy. CHEST: Lungs are clear to auscultation bilaterally without wheezes or rales. CARDIOVASCULAR: Regular rhythm and rate. S1 and S2 normal without murmurs, rubs, or gallops. ABDOMEN: Soft, nontender, and nondistended. Positive bowel sounds. No evidence of hepatosplenomegaly. Currently, no rebound or guarding noted. EXTREMITIES: Negative for clubbing, cyanosis, or edema. RECTAL/GENITAL: Not performed. NEUROLOGIC: Motor strength is 4/5 on the left and 5/5 on the right. Deep tendon reflexes are 2+ plantar. Masoud Zhu MD Apr 16, 2020 18:39
--- NOTE | 2020-04-16 19:33 | NUR ---
HAND-OFF: Report given to NU Fraser. Patient's stable, plan of care endorsed.
--- NOTE | 2020-04-16 19:40 | NUR ---
NURSE NOTES: Report received from Shelia JUDGE. Pt was in bed attempting to use the urinal. Patient is alert orientated x 3-4 with periods of forgetfulness. IV site flushed; patent and flushed. No erythema, bleeding, and infiltration noted. Bed in lowest position, side rales up x 3, call light with in reach, bed alarm on, patient has yellow non-slip socks on, pt educated to call nurse for assistance. Will continue to monitor.
[2020-04-16] MEDS: Tamsulosin 0.4mg cap ORAL SCH (20:35)
[2020-04-17] VITALS: BP 150/66
--- NOTE | 2020-04-17 00:20 | NUR ---
NURSE NOTES: Patient's temperature noted to be 101.1. Cooling measures applied and will administer Tylenol. Addendum: 04/18/20 at 0038 by TOÑITO HUTCHINSON RN RN Wrong time.
[2020-04-17 04:00] VITALS: BP 124/64
[2020-04-17] MEDS: Piperacillin/Tazobactam 3.375 GM in NS 110 ML IVPB SCH ×3 (05:41→22:49)
[2020-04-17] MEDS: Nateglinide 60mg tab ORAL SCH ×3 (05:48→16:53)
[2020-04-17] MEDS: metFORMIN 500mg tab ORAL SCH ×3 (05:48→16:53)
[2020-04-17] MEDS: NovoLOG Insulin Flexpen SUBQ SCH ×4 (05:50→20:06)
--- NOTE | 2020-04-17 07:02 | General Progress Note ---
Assessment/Plan Problem List: (1) History of diabetes mellitus ICD Codes: Z86.39 - Personal history of other endocrine, nutritional and metabolic disease SNOMED: 316029052 (2) History of hypertension ICD Codes: Z86.79 - Personal history of other diseases of the circulatory system SNOMED: 092851020 (3) Acute CVA (cerebrovascular accident) ICD Codes: I63.9 - Cerebral infarction, unspecified SNOMED: 590161637, 354501462 (4) BPH (benign prostatic hyperplasia) ICD Codes: N40.0 - Benign prostatic hyperplasia without lower urinary tract symptoms SNOMED: 615283573 (5) Pituitary adenoma ICD Codes: D35.2 - Benign neoplasm of pituitary gland SNOMED: 524827571 Assessment/Plan: continue Levemir 20 units daily continue Metformin 500 mg tid continue Starlix 60 mg ac tid continue Januvia 100 mg daily continue Novolog sliding scale ac / hs hypoglycemia protocol in order hormonal evaluation for pituitary adenoma ordered: - prolactin - IGF1 - ACTH -cortisol Subjective Allergies: Coded Allergies: NO ALLERGY INFORMATION AVAILABLE (Verified Allergy, Unknown, 04/15/20) NO KNOWN DRUG ALLERGIES (Verified Allergy, Unknown, 04/15/20) All Systems: reviewed and negative except above Subjective events noted glucose values on higher side but trending down Item Value Date Time Bedside Blood Glucose 250 mg/dl H 04/16/20 2100 Bedside Blood Glucose 267 mg/dl H 04/16/20 1655 Bedside Blood Glucose 287 mg/dl H 04/16/20 1318 Bedside Blood Glucose 311 mg/dl H 04/16/20 0521 Objective Last 24 Hour Vital Signs Date Time Temp Pulse Resp B/P (MAP) Pulse Ox O2 Delivery O2 Flow Rate FiO2 04/17/20 04:00 70 04/17/20 04:00 99.9 72 19 124/64 (84) 96 04/17/20 00:00 81 04/17/20 00:00 100.3 94 20 150/66 (94) 96 04/16/20 22:56 99.6 04/16/20 21:00 Room Air 04/16/20 20:00 101.7 102 22 113/71 (85) 95 04/16/20 20:00 89 04/16/20 18:02 172/71 04/16/20 16:00 98.8 81 18 172/71 (104) 98 04/16/20 16:00 75 04/16/20 12:00 75 04/16/20 11:49 98.2 78 18 153/70 (97) 97 04/16/20 11:00 97.2 70 18 150/72 (98) 96 04/16/20 10:00 96.1 68 17 148/70 (96) 96 04/16/20 09:00 98.8 72 18 150/64 (92) 96 04/16/20 08:00 81 04/16/20 08:00 Room Air 04/16/20 08:00 97.5 81 18 100/76 (84) 95 04/16/20 07:00 99.1 79 150/72 (98) 98 Intake and Output 04/16/20 04/17/20 19:00 07:00 Intake Total 340 ml 385.0 ml Balance 340 ml 385.0 ml Intake Oral 340 ml IV Total 385.0 ml # Voids 3 Laboratory Tests 04/16/20 11:41: POC Whole Blood Glucose 287H 04/16/20 16:45: POC Whole Blood Glucose 267H 04/17/20 05:46: POC Whole Blood Glucose [Pending] Height (Feet): 5 Height (Inches): 10.00 Weight (Pounds): 213 General Appearance: no apparent distress Neck: normal alignment Cardiovascular: normal rate Respiratory/Chest: lungs clear Abdomen: normal bowel sounds Objective Current Medications Medications (Trade) Dose Ordered Sig/Sukhdeep Route PRN Reason Start Time Stop Time Status Last Admin Dose Admin Acetaminophen (Tylenol) 650 mg Q4H PRN ORAL fever 04/15/20 10:00 05/15/20 09:59 04/16/20 22:26 Albuterol/ Ipratropium (Albuterol/ Ipratropium) 3 ml Q4H PRN HHN Shortness of Breath 04/15/20 10:00 04/20/20 09:59 Alprazolam (Xanax) 0.5 mg Q6H PRN ORAL agitation 04/16/20 17:15 04/23/20 17:14 04/16/20 18:02 Clonidine HCl (Catapres Tab) 0.1 mg Q4H PRN ORAL For High Blood Pressure 04/15/20 10:00 07/14/20 09:59 04/16/20 18:02 Dextrose (Dextrose 50%) 25 ml Q30M PRN IV Hypoglycemia 04/16/20 12:45 07/15/20 12:44 Dextrose (Dextrose 50%) 50 ml Q30M PRN IV Hypoglycemia 04/16/20 12:45 07/15/20 12:44 Heparin Sodium (Porcine) (Heparin 5000 units/ml) 5,000 units EVERY 12 HOURS SUBQ 04/15/20 21:00 05/30/20 20:59 04/16/20 20:35 Insulin Aspart (NovoLOG) BEFORE MEALS AND HS SUBQ 04/15/20 21:00 07/14/20 20:59 04/17/20 05:50 Insulin Detemir (Levemir) 20 units DAILY SUBQ 04/16/20 14:00 07/15/20 13:59 04/16/20 13:18 Lisinopril (ZestriL) 10 mg DAILY ORAL 04/17/20 09:00 05/17/20 08:59 Metformin HCl (Glucophage) 500 mg TIAC ORAL 04/16/20 13:00 05/16/20 12:59 04/17/20 05:48 Nateglinide (Starlix) 60 mg TIAC ORAL 04/16/20 16:30 05/16/20 16:29 04/17/20 05:48 Nitroglycerin (Ntg) 0.4 mg Q5M X 3 DOSES PRN SL Prn Chest Pain 04/15/20 10:00 05/15/20 09:59 Ondansetron HCl (Zofran) 4 mg Q6H PRN IVP Nausea & Vomiting 04/15/20 10:00 05/15/20 09:59 Piperacillin Sod/ Tazobactam Sod 3.375 gm/Sodium Chloride 110 ml @ 27.5 mls/hr EVERY 8 HOURS IVPB 04/15/20 20:00 04/20/20 19:59 04/17/20 05:41 Polyethylene Glycol (Miralax) 17 gm HSPRN PRN ORAL Constipation 04/15/20 10:00 05/15/20 09:59 Promethazine HCl/ Codeine (Phenergan with Codeine) 5 ml Q4H PRN ORAL For Cough 04/15/20 10:00 05/15/20 09:59 Sitagliptin Phosphate (Januvia) 100 mg ACBREAKFAST ORAL 04/16/20 14:00 05/16/20 13:59 04/17/20 05:48 Tamsulosin HCl (Flomax) 0.4 mg BEDTIME ORAL 04/15/20 21:00 05/15/20 20:59 04/16/20 20:35 Temazepam (Restoril) 15 mg HSPRN PRN ORAL Insomnia 04/15/20 10:00 04/22/20 09:59 Vancomycin HCl (Vanco pharmacy to dose) 1 ea DAILY PRN MISC Per rx protocol 04/15/20 17:45 05/15/20 17:44 Vancomycin HCl 750 mg/Sodium Chloride 275 ml @ 183.333 mls/hr Q12HR@0800,1999 IVPB 04/16/20 08:00 04/21/20 07:59 04/16/20 20:01 Ramsey Ross MD Apr 17, 2020 07:01
--- NOTE | 2020-04-17 07:58 | NUR ---
NURSE NOTES: Received pt in bed, AAO x 4 but confused time to time. IV on RAC 22G running zosyn. Pt is high fall risk per hx of fall and yellow socks on. Educated to call nurse for assistance. Side rails x 3. Bed in the lowest, locked, and alarm on. Call light within reach. Will continue to monitor
[2020-04-17 08:00] VITALS: BP 135/62
[2020-04-17] MEDS: Levemir Flexpen SUBQ SCH (08:45)
[2020-04-17] MEDS: Lisinopril 10mg tab ORAL SCH (08:46)
[2020-04-17] MEDS: Heparin 5000 units/ml inj SUBQ SCH ×2 (08:46→20:06)
[2020-04-17 09:29] LABS: BASOPHILS % (AUTO) 2.4 % (0.0-2.0); EOSINOPHILS % (AUTO) 1.8 % (0.0-3.0); HEMATOCRIT 38.8 % (42.0-52.0); HEMOGLOBIN 12.7 G/DL (14.2-18.0); LYMPHOCYTES % (AUTO) 24.9 % (20.0-45.0); MEAN CORPUSCULAR VOLUME 86 FL (80-99); MONOCYTES % (AUTO) 6.2 % (1.0-10.0); NEUTROPHILS % (AUTO) 64.8 % (45.0-75.0); PLATELET COUNT 160 K/UL (150-450); RED BLOOD COUNT 4.52 M/UL (4.70-6.10); RED CELL DISTRIBUTION WIDTH 13.2 % (11.6-14.8); WHITE BLOOD COUNT 4.2 K/UL (4.8-10.8)
[2020-04-17 09:46] LABS: ALANINE AMINOTRANSFERASE 30 U/L (12-78); ALBUMIN 3.6 G/DL (3.4-5.0); ALBUMIN/GLOBULIN RATIO 1.1 (1.0-2.7); ALKALINE PHOSPHATASE 75 U/L (46-116); ANION GAP 8 mmol/L (5-15); ASPARTATE AMINO TRANSFERASE 26 U/L (15-37); BILIRUBIN,TOTAL 0.8 MG/DL (0.2-1.0); BLOOD UREA NITROGEN 10 mg/dL (7-18); CALCIUM 9.2 MG/DL (8.5-10.1); CARBON DIOXIDE 29 MMOL/L (21-32); CHLORIDE 105 MMOL/L (98-107); PHOSPHORUS 3.5 MG/DL (2.5-4.9); SODIUM 142 MMOL/L (136-145)
--- NOTE | 2020-04-17 10:48 | Pulmonology Progress Note ---
Subjective ROS Limited/Unobtainable: No Interval Events: doing better, d/w at bed site Allergies: Coded Allergies: NO ALLERGY INFORMATION AVAILABLE (Verified Allergy, Unknown, 04/15/20) NO KNOWN DRUG ALLERGIES (Verified Allergy, Unknown, 04/15/20) All Systems: reviewed and negative except above Objective Last 24 Hour Vital Signs Date Time Temp Pulse Resp B/P (MAP) Pulse Ox O2 Delivery O2 Flow Rate FiO2 04/17/20 08:46 135/62 04/17/20 08:09 Room Air 04/17/20 08:00 84 04/17/20 08:00 100.9 76 18 135/62 (86) 95 04/17/20 04:00 70 04/17/20 04:00 99.9 72 19 124/64 (84) 96 04/17/20 00:00 81 04/17/20 00:00 100.3 94 20 150/66 (94) 96 04/16/20 22:56 99.6 04/16/20 21:00 Room Air 04/16/20 20:00 101.7 102 22 113/71 (85) 95 04/16/20 20:00 89 04/16/20 18:02 172/71 04/16/20 16:00 98.8 81 18 172/71 (104) 98 04/16/20 16:00 75 04/16/20 12:00 75 04/16/20 11:49 98.2 78 18 153/70 (97) 97 04/16/20 11:00 97.2 70 18 150/72 (98) 96 Intake and Output 04/16/20 04/17/20 19:00 07:00 Intake Total 340 ml 385.0 ml Balance 340 ml 385.0 ml Intake Oral 340 ml IV Total 385.0 ml # Voids 3 2 General Appearance: WD/WN, no acute distress HEENT: normocephalic, atraumatic Respiratory: chest wall non-tender, lungs clear Cardiovascular: normal peripheral pulses, normal rate, regular rhythm Abdomen: normal bowel sounds, soft, non tender, no organomegaly Genitourinary: normal external genitalia Extremities: no cyanosis, no clubbing Skin: no lesions Microbiology Date/Time Source Procedure Growth Status 04/15/20 18:25 Blood Blood Culture - Preliminary NO GROWTH AFTER 24 HOURS Resulted 7/21/20 18:15 Blood Blood Culture - Preliminary NO GROWTH AFTER 24 HOURS Resulted 04/16/20 14:40 Nasopharynx SARS-CoV-2 RdRp Gene Assay - Final Complete 04/15/20 21:30 Nasopharynx SARS-CoV-2 RdRp Gene Assay - Final Complete 04/15/20 21:30 Urine,Clean Catch Urine Culture - Preliminary NO GROWTH AFTER 24 HOURS Resulted Laboratory Tests 04/16/20 11:41: POC Whole Blood Glucose 287H 04/16/20 16:45: POC Whole Blood Glucose 267H 04/17/20 05:46: POC Whole Blood Glucose [Pending] 04/17/20 08:30: White Blood Count 4.2L, Red Blood Count 4.52L, Hemoglobin 12.7L, Hematocrit 38.8L, Mean Corpuscular Volume 86, Mean Corpuscular Hemoglobin 28.1, Mean Corpuscular Hemoglobin Concent 32.7, Red Cell Distribution Width 13.2, Platelet Count 160, Mean Platelet Volume 9.1, Neutrophils (%) (Auto) 64.8, Lymphocytes (% ) (Auto) 24.9, Monocytes (%) (Auto) 6.2, Eosinophils (%) (Auto) 1.8, Basophils ( %) (Auto) 2.4H, Erythrocyte Sedimentation Rate [Pending], Sodium Level 142, Potassium Level 4.0, Chloride Level 105, Carbon Dioxide Level 29, Anion Gap 8, Blood Urea Nitrogen 10, Creatinine 1.0, Estimat Glomerular Filtration Rate > 60 , Glucose Level 220H, Calcium Level 9.2, Phosphorus Level 3.5, Magnesium Level 1.9, Total Bilirubin 0.8, Aspartate Amino Transf (AST/SGOT) 26, Alanine Aminotransferase (ALT/SGPT) 30, Alkaline Phosphatase 75, C-Reactive Protein, Quantitative 1.5H, Total Protein 7.0, Albumin 3.6, Globulin 3.4, Albumin/ Globulin Ratio 1.1, Prolactin [Pending], Insulin-like Growth Factor I [Pending] , Cortisol [Pending], Adrenocorticotropic Hormone [Pending], Vancomycin Level Trough 6.4 Current Medications Medications (Trade) Dose Ordered Sig/Sukhdeep Route PRN Reason Start Time Stop Time Status Last Admin Dose Admin Acetaminophen (Tylenol) 650 mg Q4H PRN ORAL fever 04/15/20 10:00 05/15/20 09:59 04/17/20 10:12 Albuterol/ Ipratropium (Albuterol/ Ipratropium) 3 ml Q4H PRN HHN Shortness of Breath 04/15/20 10:00 04/20/20 09:59 Alprazolam (Xanax) 0.5 mg Q6H PRN ORAL agitation 04/16/20 17:15 04/23/20 17:14 04/16/20 18:02 Clonidine HCl (Catapres Tab) 0.1 mg Q4H PRN ORAL For High Blood Pressure 04/15/20 10:00 07/14/20 09:59 04/16/20 18:02 Dextrose (Dextrose 50%) 25 ml Q30M PRN IV Hypoglycemia 04/16/20 12:45 07/15/20 12:44 Dextrose (Dextrose 50%) 50 ml Q30M PRN IV Hypoglycemia 04/16/20 12:45 07/15/20 12:44 Heparin Sodium (Porcine) (Heparin 5000 units/ml) 5,000 units EVERY 12 HOURS SUBQ 04/15/20 21:00 05/30/20 20:59 04/17/20 08:46 Insulin Aspart (NovoLOG) BEFORE MEALS AND HS SUBQ 04/15/20 21:00 07/14/20 20:59 04/17/20 05:50 Insulin Detemir (Levemir) 20 units DAILY SUBQ 04/16/20 14:00 07/15/20 13:59 04/17/20 08:45 Lisinopril (ZestriL) 10 mg DAILY ORAL 04/17/20 09:00 05/17/20 08:59 04/17/20 08:46 Metformin HCl (Glucophage) 500 mg TIAC ORAL 04/16/20 13:00 05/16/20 12:59 04/17/20 05:48 Nateglinide (Starlix) 60 mg TIAC ORAL 04/16/20 16:30 05/16/20 16:29 04/17/20 05:48 Nitroglycerin (Ntg) 0.4 mg Q5M X 3 DOSES PRN SL Prn Chest Pain 04/15/20 10:00 05/15/20 09:59 Ondansetron HCl (Zofran) 4 mg Q6H PRN IVP Nausea & Vomiting 04/15/20 10:00 05/15/20 09:59 Piperacillin Sod/ Tazobactam Sod 3.375 gm/Sodium Chloride 110 ml @ 27.5 mls/hr EVERY 8 HOURS IVPB 04/15/20 20:00 04/20/20 19:59 04/17/20 05:41 Polyethylene Glycol (Miralax) 17 gm HSPRN PRN ORAL Constipation 04/15/20 10:00 05/15/20 09:59 Promethazine HCl/ Codeine (Phenergan with Codeine) 5 ml Q4H PRN ORAL For Cough 04/15/20 10:00 05/15/20 09:59 Sitagliptin Phosphate (Januvia) 100 mg ACBREAKFAST ORAL 04/16/20 14:00 05/16/20 13:59 04/17/20 05:48 Tamsulosin HCl (Flomax) 0.4 mg BEDTIME ORAL 04/15/20 21:00 05/15/20 20:59 04/16/20 20:35 Temazepam (Restoril) 15 mg HSPRN PRN ORAL Insomnia 04/15/20 10:00 04/22/20 09:59 Vancomycin HCl (Vanco pharmacy to dose) 1 ea DAILY PRN MISC Per rx protocol 04/15/20 17:45 05/15/20 17:44 Vancomycin/Sodium Chloride 275 ml @ 183.333 mls/hr Q12H IVPB 04/17/20 11:00 04/22/20 10:59 Assessment/Plan Problems: (1) Nosocomial pneumonia (2) Acute CVA (cerebrovascular accident) (3) History of diabetes mellitus (4) History of hypertension (5) BPH (benign prostatic hyperplasia) (6) Pituitary adenoma (7) Fever Assessment/Plan srivastava culture cxr showing LLL atelectasis vs infiltrate swallow study reviewed, regular diet with thick liquid were recommended. echocardiogram reviewed, mild Diastolic LV dysfunction MRI of brain reviewed: Pituitary adenoma visualized, Endo consult requested sliding scale Monitor BP, on lisinopril 10 mg qd, BP better than yesterday pt/ot pending Fritz Pelletier MD Apr 17, 2020 10:48
[2020-04-17] MEDS: Vancomycin 1.25gm/NS Premix q24h IVPB SCH ×2 (10:53→22:50)
[2020-04-17 12:00] VITALS: BP 146/67
--- NOTE | 2020-04-17 13:29 | NUR ---
*-* INSURANCE *-* AVAILABLE CLINICALS HAVE BEEN FAXED TO: [facility] AUTH#[id number] P [phone] F [phone] Addendum: 04/18/20 at 1102 by YULI SHAH *-* AUTHORIZATION *-* RECEIVED A CALL FROM ZARINA WITH 2 DAYS AUTH 04/15- AUTH# [id number] BENNIEM:ANKUSH
--- NOTE | 2020-04-17 13:50 | NUR ---
CASE MANAGEMENT:REVIEW 04/17/20 SI: ACUTE CVA 100.9 85 21 146/67 99% ON RA WBC-4.2 H/H-12.7/38.8 ESR+25 GLUCOSE+220 IS: IV VANCOMYCIN Q12 IV ZOSYN Q8HRS LISINOPRIL PO QD STARLIX PO TID AC LEVEMIR SQ QD JANUVIA PO QAM METFORMIN PO TID AC HEPARIN SQ Q12 FLOMAX PO QHS : TELEMETRY STATUS DCP: IN PROCESS PLAN: NEEDS REHAB...ONLY AMBULATING 15FT
--- NOTE | 2020-04-17 14:08 | NUR ---
DISCHARGE PLANNING LEFT [facility] [employer], ANKUSH T: [phone] REQUESTING DISCHARGE OPTIONS FOR THIS MEMBER
--- NOTE | 2020-04-17 14:15 | NUR ---
[facility] T: [phone] F: [phone]
--- NOTE | 2020-04-17 15:30 | Infectious Diseases Prog Note ---
Assessment/Plan Abx: IV Vancomycin 04/15- Zosyn 04/15- Assessment: SEpsis vs SIRS- ?source ?early PNA- ?aspiration -04/16 CXR: 1 Low lung volumes with bronchovascular crowding Mild retrocardiac opacity, representing atelectasis without or with consolidation. Otherwise no acute cardiopulmonary disease. If there is continued concern, recommend frontal and lateral chest radiographs or CT -04/15 CXR: no acute disease -u/a neg; ucx NTD -Bcx NTD Fever; improving- r/o COVID19 Mild leukopenia -04/16 rapid COVID neg -04/15 rapid COVID neg Acute CVA ?Pituitary adenoma -Brain MRI: Acute right POT LINER territorial infarct. Small sellar mass with signal characteristics suggesting pituitary adenoma.Consider further evaluation with dedicated MRI with contrast utilizing pituitary protocol on nonemergent basis. Dm2 HTN BPH HLD Plan: -Continue empiric IV Vancomycin and Zosyn #3 pending cultures -f/u cx -Monitor CBC/CMP, temperatures -COVID19 isolation/testing; send 2nd PCR -aspiration precautions -Neuro eval -endo f/u Thank you for this consultation. Will continue to follow along with you. Discussed with RN. Subjective Allergies: Coded Allergies: NO ALLERGY INFORMATION AVAILABLE (Verified Allergy, Unknown, 04/15/20) NO KNOWN DRUG ALLERGIES (Verified Allergy, Unknown, 04/15/20) Tm 101.7 at RA 2nd rapid covid neg bcx NTD Objective Last 24 Hour Vital Signs Date Time Temp Pulse Resp B/P (MAP) Pulse Ox O2 Delivery O2 Flow Rate FiO2 04/17/20 12:00 98.2 85 21 146/67 (93) 99 04/17/20 12:00 76 04/17/20 10:42 98.1 04/17/20 08:46 135/62 04/17/20 08:09 Room Air 04/17/20 08:00 84 04/17/20 08:00 100.9 76 18 135/62 (86) 95 04/17/20 04:00 70 04/17/20 04:00 99.9 72 19 124/64 (84) 96 04/17/20 00:00 81 04/17/20 00:00 100.3 94 20 150/66 (94) 96 04/16/20 21:00 Room Air 04/16/20 20:00 101.7 102 22 113/71 (85) 95 04/16/20 20:00 89 04/16/20 18:02 172/71 04/16/20 16:00 98.8 81 18 172/71 (104) 98 04/16/20 16:00 75 Height (Feet): 5 Height (Inches): 10.00 Weight (Pounds): 213 GENERAL: The patient is well-developed and well-nourished male in no apparent distress. HEENT: Eyes, pupils are equal and responsive to light and accommodation. Extraocular movements are intact. CHEST: Lungs are clear to auscultation bilaterally without wheezes or rales. CARDIOVASCULAR: Regular rhythm and rate. S1 and S2 normal without murmurs, rubs, or gallops. ABDOMEN: Soft, nontender, and nondistended. Positive bowel sounds. EXTREMITIES: Negative for clubbing, cyanosis, or edema. Microbiology Date/Time Source Procedure Growth Status 04/15/20 18:25 Blood Blood Culture - Preliminary NO GROWTH AFTER 24 HOURS Resulted 04/15/20 18:15 Blood Blood Culture - Preliminary NO GROWTH AFTER 24 HOURS Resulted 04/16/20 14:40 Nasopharynx SARS-CoV-2 RdRp Gene Assay - Final Complete 04/15/20 21:30 Nasopharynx SARS-CoV-2 RdRp Gene Assay - Final Complete 04/15/20 21:30 Urine,Clean Catch Urine Culture - Preliminary NO GROWTH AFTER 24 HOURS Resulted Laboratory Tests Test 04/16/20 16:45 04/17/20 05:46 04/17/20 08:30 POC Whole Blood Glucose 267 MG/DL (74-106) H Pending White Blood Count 4.2 K/UL (4.8-10.8) L Red Blood Count 4.52 M/UL (4.70-6.10) L Hemoglobin 12.7 G/DL (14.2-18.0) L Hematocrit 38.8 % (42.0-52.0) L Mean Corpuscular Volume 86 FL (80-99) Mean Corpuscular Hemoglobin 28.1 PG (27.0-31.0) Mean Corpuscular Hemoglobin Concent 32.7 G/DL (32.0-36.0) Red Cell Distribution Width 13.2 % (11.6-14.8) Platelet Count 160 K/UL (150-450) Mean Platelet Volume 9.1 FL (6.5-10.1) Neutrophils (%) (Auto) 64.8 % (45.0-75.0) Lymphocytes (%) (Auto) 24.9 % (20.0-45.0) Monocytes (%) (Auto) 6.2 % (1.0-10.0) Eosinophils (%) (Auto) 1.8 % (0.0-3.0) Basophils (%) (Auto) 2.4 % (0.0-2.0) H Erythrocyte Sedimentation Rate 25 MM/HR (0-20) H Sodium Level 142 MMOL/L (136-145) Potassium Level 4.0 MMOL/L (3.5-5.1) Chloride Level 105 MMOL/L (98-107) Carbon Dioxide Level 29 MMOL/L (21-32) Anion Gap 8 mmol/L (5-15) Blood Urea Nitrogen 10 mg/dL (7-18) Creatinine 1.0 MG/DL (0.55-1.30) Estimat Glomerular Filtration Rate > 60 mL/min (>60) Glucose Level 220 MG/DL (74-106) H Calcium Level 9.2 MG/DL (8.5-10.1) Phosphorus Level 3.5 MG/DL (2.5-4.9) Magnesium Level 1.9 MG/DL (1.8-2.4) Total Bilirubin 0.8 MG/DL (0.2-1.0) Aspartate Amino Transf (AST/SGOT) 26 U/L (15-37) Alanine Aminotransferase (ALT/SGPT) 30 U/L (12-78) Alkaline Phosphatase 75 U/L (46-116) C-Reactive Protein, Quantitative 1.5 mg/dL (0.00-0.90) H Total Protein 7.0 G/DL (6.4-8.2) Albumin 3.6 G/DL (3.4-5.0) Globulin 3.4 g/dL Albumin/Globulin Ratio 1.1 (1.0-2.7) Prolactin Pending Insulin-like Growth Factor I Pending Cortisol Pending Adrenocorticotropic Hormone Pending Vancomycin Level Trough 6.4 ug/mL (5.0-12.0) Current Medications Medications (Trade) Dose Ordered Sig/Sukhdeep Route PRN Reason Start Time Stop Time Status Last Admin Dose Admin Acetaminophen (Tylenol) 650 mg Q4H PRN ORAL fever 04/15/20 10:00 05/15/20 09:59 04/17/20 10:12 Albuterol/ Ipratropium (Albuterol/ Ipratropium) 3 ml Q4H PRN HHN Shortness of Breath 04/15/20 10:00 04/20/20 09:59 Alprazolam (Xanax) 0.5 mg Q6H PRN ORAL agitation 04/16/20 17:15 04/23/20 17:14 04/16/20 18:02 Clonidine HCl (Catapres Tab) 0.1 mg Q4H PRN ORAL For High Blood Pressure 04/15/20 10:00 07/14/20 09:59 04/16/20 18:02 Dextrose (Dextrose 50%) 25 ml Q30M PRN IV Hypoglycemia 04/16/20 12:45 07/15/20 12:44 Dextrose (Dextrose 50%) 50 ml Q30M PRN IV Hypoglycemia 04/16/20 12:45 07/15/20 12:44 Heparin Sodium (Porcine) (Heparin 5000 units/ml) 5,000 units EVERY 12 HOURS SUBQ 04/15/20 21:00 05/30/20 20:59 04/17/20 08:46 Insulin Aspart (NovoLOG) BEFORE MEALS AND HS SUBQ 04/15/20 21:00 07/14/20 20:59 04/17/20 11:38 Insulin Detemir (Levemir) 20 units DAILY SUBQ 04/16/20 14:00 07/15/20 13:59 04/17/20 08:45 Lisinopril (ZestriL) 10 mg DAILY ORAL 04/17/20 09:00 05/17/20 08:59 04/17/20 08:46 Metformin HCl (Glucophage) 500 mg TIAC ORAL 04/16/20 13:00 05/16/20 12:59 04/17/20 10:53 Nateglinide (Starlix) 60 mg TIAC ORAL 04/16/20 16:30 05/16/20 16:29 04/17/20 10:53 Nitroglycerin (Ntg) 0.4 mg Q5M X 3 DOSES PRN SL Prn Chest Pain 04/15/20 10:00 8/20/20 09:59 Ondansetron HCl (Zofran) 4 mg Q6H PRN IVP Nausea & Vomiting 04/15/20 10:00 05/15/20 09:59 Piperacillin Sod/ Tazobactam Sod 3.375 gm/Sodium Chloride 110 ml @ 27.5 mls/hr EVERY 8 HOURS IVPB 04/15/20 20:00 04/20/20 19:59 04/17/20 13:19 Polyethylene Glycol (Miralax) 17 gm HSPRN PRN ORAL Constipation 04/15/20 10:00 05/15/20 09:59 Promethazine HCl/ Codeine (Phenergan with Codeine) 5 ml Q4H PRN ORAL For Cough 04/15/20 10:00 05/15/20 09:59 Sitagliptin Phosphate (Januvia) 100 mg ACBREAKFAST ORAL 04/16/20 14:00 05/16/20 13:59 04/17/20 05:48 Tamsulosin HCl (Flomax) 0.4 mg BEDTIME ORAL 04/15/20 21:00 05/15/20 20:59 04/16/20 20:35 Temazepam (Restoril) 15 mg HSPRN PRN ORAL Insomnia 04/15/20 10:00 04/22/20 09:59 Vancomycin HCl (Vanco pharmacy to dose) 1 ea DAILY PRN MISC Per rx protocol 04/15/20 17:45 05/15/20 17:44 Vancomycin/Sodium Chloride 275 ml @ 183.333 mls/hr Q12H IVPB 04/17/20 11:00 04/22/20 10:59 04/17/20 10:53 Meryl Robison M.D. Apr 17, 2020 15:30
[2020-04-17 16:00] VITALS: BP 140/72
--- NOTE | 2020-04-17 16:54 | Internal Med Progress Note ---
Subjective Date of Service: Apr 17, 2020 Physician Name AudraMasoud Attending Physician Celestine Burch MD Current Medications Medications (Trade) Dose Ordered Sig/Sukhdeep Route PRN Reason Start Time Stop Time Status Last Admin Dose Admin Acetaminophen (Tylenol) 650 mg Q4H PRN ORAL fever 04/15/20 10:00 05/15/20 09:59 04/17/20 10:12 Albuterol/ Ipratropium (Albuterol/ Ipratropium) 3 ml Q4H PRN HHN Shortness of Breath 04/15/20 10:00 04/20/20 09:59 Alprazolam (Xanax) 0.5 mg Q6H PRN ORAL agitation 04/16/20 17:15 04/23/20 17:14 04/16/20 18:02 Clonidine HCl (Catapres Tab) 0.1 mg Q4H PRN ORAL For High Blood Pressure 04/15/20 10:00 07/14/20 09:59 04/16/20 18:02 Dextrose (Dextrose 50%) 25 ml Q30M PRN IV Hypoglycemia 04/16/20 12:45 07/15/20 12:44 Dextrose (Dextrose 50%) 50 ml Q30M PRN IV Hypoglycemia 04/16/20 12:45 07/15/20 12:44 Heparin Sodium (Porcine) (Heparin 5000 units/ml) 5,000 units EVERY 12 HOURS SUBQ 04/15/20 21:00 05/30/20 20:59 04/17/20 08:46 Insulin Aspart (NovoLOG) BEFORE MEALS AND HS SUBQ 04/15/20 21:00 07/14/20 20:59 04/17/20 11:38 Insulin Detemir (Levemir) 20 units DAILY SUBQ 04/16/20 14:00 07/15/20 13:59 04/17/20 08:45 Lisinopril (ZestriL) 10 mg DAILY ORAL 04/17/20 09:00 05/17/20 08:59 04/17/20 08:46 Metformin HCl (Glucophage) 500 mg TIAC ORAL 04/16/20 13:00 05/16/20 12:59 04/17/20 10:53 Nateglinide (Starlix) 60 mg TIAC ORAL 04/16/20 16:30 05/16/20 16:29 04/17/20 10:53 Nitroglycerin (Ntg) 0.4 mg Q5M X 3 DOSES PRN SL Prn Chest Pain 04/15/20 10:00 05/15/20 09:59 Ondansetron HCl (Zofran) 4 mg Q6H PRN IVP Nausea & Vomiting 04/15/20 10:00 05/15/20 09:59 Piperacillin Sod/ Tazobactam Sod 3.375 gm/Sodium Chloride 110 ml @ 27.5 mls/hr EVERY 8 HOURS IVPB 04/15/20 20:00 04/20/20 19:59 04/17/20 13:19 Polyethylene Glycol (Miralax) 17 gm HSPRN PRN ORAL Constipation 04/15/20 10:00 05/15/20 09:59 Promethazine HCl/ Codeine (Phenergan with Codeine) 5 ml Q4H PRN ORAL For Cough 04/15/20 10:00 05/15/20 09:59 Sitagliptin Phosphate (Januvia) 100 mg ACBREAKFAST ORAL 04/16/20 14:00 05/16/20 13:59 04/17/20 05:48 Tamsulosin HCl (Flomax) 0.4 mg BEDTIME ORAL 04/15/20 21:00 05/15/20 20:59 04/16/20 20:35 Temazepam (Restoril) 15 mg HSPRN PRN ORAL Insomnia 04/15/20 10:00 04/22/20 09:59 Vancomycin HCl (Vanco pharmacy to dose) 1 ea DAILY PRN MISC Per rx protocol 04/15/20 17:45 05/15/20 17:44 Vancomycin/Sodium Chloride 275 ml @ 183.333 mls/hr Q12H IVPB 04/17/20 11:00 04/22/20 10:59 04/17/20 10:53 Allergies: Coded Allergies: NO ALLERGY INFORMATION AVAILABLE (Verified Allergy, Unknown, 04/15/20) NO KNOWN DRUG ALLERGIES (Verified Allergy, Unknown, 04/15/20) ROS Limited/Unobtainable: No Constitutional: Reports: weakness HEENT: Reports: no symptoms Cardiovascular: Reports: no symptoms Respiratory: Reports: no symptoms Gastrointestinal/Abdominal: Reports: no symptoms Genitourinary: Reports: no symptoms Neurologic/Psychiatric: Reports: no symptoms Subjective 74 YO M admitted with altered mental status and left side weakness. Now acute right post cerebral artery CVA. Cover for Int Madhu- Dr Burch Objective Last Vital Signs Date Time Temp Pulse Resp B/P (MAP) Pulse Ox O2 Delivery O2 Flow Rate FiO2 04/17/20 16:00 98.7 62 20 140/72 (94) 98 04/17/20 08:09 Room Air Laboratory Tests Test 04/17/20 05:46 04/17/20 08:30 POC Whole Blood Glucose Pending White Blood Count 4.2 K/UL (4.8-10.8) L Red Blood Count 4.52 M/UL (4.70-6.10) L Hemoglobin 12.7 G/DL (14.2-18.0) L Hematocrit 38.8 % (42.0-52.0) L Mean Corpuscular Volume 86 FL (80-99) Mean Corpuscular Hemoglobin 28.1 PG (27.0-31.0) Mean Corpuscular Hemoglobin Concent 32.7 G/DL (32.0-36.0) Red Cell Distribution Width 13.2 % (11.6-14.8) Platelet Count 160 K/UL (150-450) Mean Platelet Volume 9.1 FL (6.5-10.1) Neutrophils (%) (Auto) 64.8 % (45.0-75.0) Lymphocytes (%) (Auto) 24.9 % (20.0-45.0) Monocytes (%) (Auto) 6.2 % (1.0-10.0) Eosinophils (%) (Auto) 1.8 % (0.0-3.0) Basophils (%) (Auto) 2.4 % (0.0-2.0) H Erythrocyte Sedimentation Rate 25 MM/HR (0-20) H Sodium Level 142 MMOL/L (136-145) Potassium Level 4.0 MMOL/L (3.5-5.1) Chloride Level 105 MMOL/L (98-107) Carbon Dioxide Level 29 MMOL/L (21-32) Anion Gap 8 mmol/L (5-15) Blood Urea Nitrogen 10 mg/dL (7-18) Creatinine 1.0 MG/DL (0.55-1.30) Estimat Glomerular Filtration Rate > 60 mL/min (>60) Glucose Level 220 MG/DL (74-106) H Calcium Level 9.2 MG/DL (8.5-10.1) Phosphorus Level 3.5 MG/DL (2.5-4.9) Magnesium Level 1.9 MG/DL (1.8-2.4) Total Bilirubin 0.8 MG/DL (0.2-1.0) Aspartate Amino Transf (AST/SGOT) 26 U/L (15-37) Alanine Aminotransferase (ALT/SGPT) 30 U/L (12-78) Alkaline Phosphatase 75 U/L (46-116) C-Reactive Protein, Quantitative 1.5 mg/dL (0.00-0.90) H Total Protein 7.0 G/DL (6.4-8.2) Albumin 3.6 G/DL (3.4-5.0) Globulin 3.4 g/dL Albumin/Globulin Ratio 1.1 (1.0-2.7) Prolactin Pending Insulin-like Growth Factor I Pending Cortisol Pending Adrenocorticotropic Hormone Pending Vancomycin Level Trough 6.4 ug/mL (5.0-12.0) Microbiology Date/Time Source Procedure Growth Status 04/15/20 18:25 Blood Blood Culture - Preliminary NO GROWTH AFTER 24 HOURS Resulted 04/15/20 18:15 Blood Blood Culture - Preliminary NO GROWTH AFTER 24 HOURS Resulted 04/16/20 14:40 Nasopharynx SARS-CoV-2 RdRp Gene Assay - Final Complete 04/15/20 21:30 Nasopharynx SARS-CoV-2 RdRp Gene Assay - Final Complete 04/15/20 21:30 Urine,Clean Catch Urine Culture - Preliminary NO GROWTH AFTER 24 HOURS Resulted Intake and Output 04/16/20 04/17/20 19:00 07:00 Intake Total 340 ml 385.0 ml Balance 340 ml 385.0 ml Intake Oral 340 ml IV Total 385.0 ml # Voids 3 2 Objective PHYSICAL EXAMINATION: GENERAL: The patient is well-developed and well-nourished male in no apparent distress. HEENT: Eyes, pupils are equal and responsive to light and accommodation. Extraocular movements are intact. NECK: Supple without lymphadenopathy. CHEST: Lungs are clear to auscultation bilaterally without wheezes or rales. CARDIOVASCULAR: Regular rhythm and rate. S1 and S2 normal without murmurs, rubs, or gallops. ABDOMEN: Soft, nontender, and nondistended. Positive bowel sounds. No evidence of hepatosplenomegaly. Currently, no rebound or guarding noted. EXTREMITIES: Negative for clubbing, cyanosis, or edema. RECTAL/GENITAL: Not performed. NEUROLOGIC: Motor strength is 4/5 on the left and 5/5 on the right. Deep tendon reflexes are 2+ plantar. Assessment/Plan Assessment/Plan ASSESSMENT: This is a 74-year-old male. 1. Altered mental status. 2. Left hemiplegia. 3. Acute cerebrovascular accident. 4. Hypertension. 5. Diabetes type 2. 6. Hypoglycemia. 7. Hypercholesteremia. TREATMENT: 1. Left hemiplegia/acute cerebrovascular accident. An MRI of the brain=acute right posterior cerebral artery cerebral vascular accident. A Neurology consultation has been obtained with Dr. Toby Maynard. We will follow recommendations of Neurology. 2. Altered mental status. This may be secondary to acute cerebrovascular accident versus hypoglycemia. 3. Hypertension. Continue antihypertensive medication as above. 4. Diabetes type 2. An endocrinology consult has been obtained with Dr Ramsey Ross. The patient has been placed on NovoLog sliding scale, levemir, januvia and starlix. 5. Hypercholesterolemia. Continue atorvastatin as above. 6. Discharge planning: acute rehab Masoud Zhu MD Apr 17, 2020 16:54
--- NOTE | 2020-04-17 19:10 | NUR ---
HAND-OFF: Report given to NU Fraser and NU Washburn.
--- NOTE | 2020-04-17 19:45 | NUR ---
NURSE NOTES: Report received from Maycol JUDGE. Pt was in bed sleeping. Patient is alert orientated x 3-4 with periods of forgetfulness. IV site flushed; patent. No erythema, bleeding, and infiltration noted. Bed in lowest position, side rales up x 3, call light with in reach, bed alarm on, patient has yellow non-slip socks on, pt educated to call nurse for assistance. Will continue to monitor.
[2020-04-17 20:00] VITALS: BP 156/71
[2020-04-17] MEDS: Tamsulosin 0.4mg cap ORAL SCH (20:04)
--- NOTE | 2020-04-17 20:22 | NUR ---
DISCHARGE: Patient was transferred to [facility] via stretcher, 2 PRN ACLS ambulance staff member assist without incident. No signs of acute distress noted; denies pain at this time. Vital signs stable upon discharge. Patient taken off Tele box; tolerated well. IV site and Ortiz catheter intact. Patient swabbed for MRSA nares. Belongings returned to patient. Discharge packet with inpatient medication list given and explained to ambulance staff; verbalized understanding. Addendum: 04/17/20 at 2026 by TOÑITO HUTCHINSON RN RN Wrong patient.
[2020-04-18] VITALS: BP 164/47
--- NOTE | 2020-04-18 00:20 | NUR ---
NURSE NOTES: Patient's temperature noted to be 101.1. Cooling measures applied and will administer Tylenol.
[2020-04-18 04:00] VITALS: BP 151/61
[2020-04-18] MEDS: Piperacillin/Tazobactam 3.375 GM in NS 110 ML IVPB SCH ×3 (05:27→20:10)
[2020-04-18] MEDS: metFORMIN 500mg tab ORAL SCH ×3 (05:35→17:26)
[2020-04-18] MEDS: Nateglinide 60mg tab ORAL SCH ×3 (05:35→17:26)
[2020-04-18] MEDS: NovoLOG Insulin Flexpen SUBQ SCH ×4 (05:36→20:41)
[2020-04-18 06:41] LABS: BASOPHILS % (AUTO) 2.3 % (0.0-2.0); EOSINOPHILS % (AUTO) 2.6 % (0.0-3.0); HEMATOCRIT 38.2 % (42.0-52.0); HEMOGLOBIN 12.6 G/DL (14.2-18.0); LYMPHOCYTES % (AUTO) 33.4 % (20.0-45.0); MEAN CORPUSCULAR VOLUME 86 FL (80-99); MONOCYTES % (AUTO) 7.8 % (1.0-10.0); NEUTROPHILS % (AUTO) 53.9 % (45.0-75.0); PLATELET COUNT 153 K/UL (150-450); RED BLOOD COUNT 4.44 M/UL (4.70-6.10); WHITE BLOOD COUNT 3.9 K/UL (4.8-10.8)
--- NOTE | 2020-04-18 06:41 | General Progress Note ---
Assessment/Plan Problem List: (1) History of diabetes mellitus ICD Codes: Z86.39 - Personal history of other endocrine, nutritional and metabolic disease SNOMED: 627578219 (2) History of hypertension ICD Codes: Z86.79 - Personal history of other diseases of the circulatory system SNOMED: 300651340 (3) Acute CVA (cerebrovascular accident) ICD Codes: I63.9 - Cerebral infarction, unspecified SNOMED: 409849368, 316124250 (4) BPH (benign prostatic hyperplasia) ICD Codes: N40.0 - Benign prostatic hyperplasia without lower urinary tract symptoms SNOMED: 586319929 (5) Pituitary adenoma ICD Codes: D35.2 - Benign neoplasm of pituitary gland SNOMED: 962770686 Assessment/Plan: continue Levemir 20 units daily continue Metformin 500 mg tid continue Starlix 60 mg ac tid continue Januvia 100 mg daily continue Novolog sliding scale ac / hs hypoglycemia protocol in order hormonal evaluation for pituitary adenoma sent and is pending: - prolactin - IGF1 - ACTH -cortisol Subjective Allergies: Coded Allergies: NO ALLERGY INFORMATION AVAILABLE (Verified Allergy, Unknown, 04/15/20) NO KNOWN DRUG ALLERGIES (Verified Allergy, Unknown, 04/15/20) All Systems: reviewed and negative except above Subjective events noted glucose values improved Item Value Date Time Bedside Blood Glucose 197 mg/dl H 04/18/20 0536 Bedside Blood Glucose 221 mg/dl H 04/17/20 2100 Bedside Blood Glucose 172 mg/dl H 04/17/20 1655 Bedside Blood Glucose 194 mg/dl H 04/17/20 1138 Bedside Blood Glucose 277 mg/dl H 04/17/20 0845 Objective Last 24 Hour Vital Signs Date Time Temp Pulse Resp B/P (MAP) Pulse Ox O2 Delivery O2 Flow Rate FiO2 04/18/20 04:00 99.3 74 18 151/61 (91) 97 04/18/20 04:00 65 04/18/20 00:37 100.0 04/18/20 00:00 101.1 83 18 164/47 (86) 95 04/18/20 00:00 75 04/17/20 21:00 Room Air 04/17/20 20:00 98.2 70 18 156/71 (99) 96 04/17/20 20:00 71 04/17/20 16:00 85 04/17/20 16:00 98.7 62 20 140/72 (94) 98 04/17/20 12:00 98.2 85 21 146/67 (93) 99 04/17/20 12:00 76 04/17/20 08:46 135/62 04/17/20 08:09 Room Air 04/17/20 08:00 84 04/17/20 08:00 100.9 76 18 135/62 (86) 95 Intake and Output 04/17/20 04/18/20 19:00 07:00 Intake Total 960 ml 800.0 ml Output Total 550 ml Balance 960 ml 250.0 ml Intake Oral 960 ml 400 ml IV Total 400.0 ml Output Urine Total 550 ml # Voids 1 3 Laboratory Tests 04/17/20 08:30: White Blood Count 4.2L, Red Blood Count 4.52L, Hemoglobin 12.7L, Hematocrit 38.8L, Mean Corpuscular Volume 86, Mean Corpuscular Hemoglobin 28.1, Mean Corpuscular Hemoglobin Concent 32.7, Red Cell Distribution Width 13.2, Platelet Count 160, Mean Platelet Volume 9.1, Neutrophils (%) (Auto) 64.8, Lymphocytes (% ) (Auto) 24.9, Monocytes (%) (Auto) 6.2, Eosinophils (%) (Auto) 1.8, Basophils ( %) (Auto) 2.4H, Erythrocyte Sedimentation Rate 25H, Sodium Level 142, Potassium Level 4.0, Chloride Level 105, Carbon Dioxide Level 29, Anion Gap 8, Blood Urea Nitrogen 10, Creatinine 1.0, Estimat Glomerular Filtration Rate > 60, Glucose Level 220H, Calcium Level 9.2, Phosphorus Level 3.5, Magnesium Level 1.9, Total Bilirubin 0.8, Aspartate Amino Transf (AST/SGOT) 26, Alanine Aminotransferase ( ALT/SGPT) 30, Alkaline Phosphatase 75, C-Reactive Protein, Quantitative 1.5H, Total Protein 7.0, Albumin 3.6, Globulin 3.4, Albumin/Globulin Ratio 1.1, Prolactin [Pending], Insulin-like Growth Factor I [Pending], Cortisol [Pending] , Adrenocorticotropic Hormone [Pending], Vancomycin Level Trough 6.4 04/17/20 19:58: POC Whole Blood Glucose 221H 04/18/20 05:20: White Blood Count [Pending], Red Blood Count [Pending], Hemoglobin [Pending], Hematocrit [Pending], Mean Corpuscular Volume [Pending], Mean Corpuscular Hemoglobin [Pending], Mean Corpuscular Hemoglobin Concent [Pending], Red Cell Distribution Width [Pending], Platelet Count [Pending], Mean Platelet Volume [ Pending], Neutrophils (%) (Auto) [Pending], Lymphocytes (%) (Auto) [Pending], Monocytes (%) (Auto) [Pending], Eosinophils (%) (Auto) [Pending], Basophils (%) (Auto) [Pending], Sodium Level [Pending], Potassium Level [Pending], Chloride Level [Pending], Carbon Dioxide Level [Pending], Blood Urea Nitrogen [Pending], Creatinine [Pending], Estimat Glomerular Filtration Rate [Pending], Glucose Level [Pending], Calcium Level [Pending] 04/18/20 05:25: POC Whole Blood Glucose 197H Height (Feet): 5 Height (Inches): 10.00 Weight (Pounds): 213 General Appearance: no apparent distress Neck: normal alignment Cardiovascular: normal rate Respiratory/Chest: lungs clear Abdomen: normal bowel sounds Pelvis: normal external exam Objective Current Medications Medications (Trade) Dose Ordered Sig/Sukhdeep Route PRN Reason Start Time Stop Time Status Last Admin Dose Admin Acetaminophen (Tylenol) 650 mg Q4H PRN ORAL fever 04/15/20 10:00 05/15/20 09:59 04/17/20 23:45 Albuterol/ Ipratropium (Albuterol/ Ipratropium) 3 ml Q4H PRN HHN Shortness of Breath 04/15/20 10:00 04/20/20 09:59 Alprazolam (Xanax) 0.5 mg Q6H PRN ORAL agitation 04/16/20 17:15 04/23/20 17:14 04/16/20 18:02 Clonidine HCl (Catapres Tab) 0.1 mg Q4H PRN ORAL For High Blood Pressure 04/15/20 10:00 07/14/20 09:59 04/16/20 18:02 Dextrose (Dextrose 50%) 25 ml Q30M PRN IV Hypoglycemia 04/16/20 12:45 07/15/20 12:44 Dextrose (Dextrose 50%) 50 ml Q30M PRN IV Hypoglycemia 04/16/20 12:45 07/15/20 12:44 Heparin Sodium (Porcine) (Heparin 5000 units/ml) 5,000 units EVERY 12 HOURS SUBQ 04/15/20 21:00 05/30/20 20:59 04/17/20 20:06 Insulin Aspart (NovoLOG) BEFORE MEALS AND HS SUBQ 04/15/20 21:00 07/14/20 20:59 04/18/20 05:36 Insulin Detemir (Levemir) 20 units DAILY SUBQ 04/16/20 14:00 07/15/20 13:59 04/17/20 08:45 Lisinopril (ZestriL) 10 mg DAILY ORAL 04/17/20 09:00 05/17/20 08:59 04/17/20 08:46 Metformin HCl (Glucophage) 500 mg TIAC ORAL 04/16/20 13:00 05/16/20 12:59 04/18/20 05:35 Nateglinide (Starlix) 60 mg TIAC ORAL 04/16/20 16:30 05/16/20 16:29 04/18/20 05:35 Nitroglycerin (Ntg) 0.4 mg Q5M X 3 DOSES PRN SL Prn Chest Pain 04/15/20 10:00 05/15/20 09:59 Ondansetron HCl (Zofran) 4 mg Q6H PRN IVP Nausea & Vomiting 04/15/20 10:00 05/15/20 09:59 Piperacillin Sod/ Tazobactam Sod 3.375 gm/Sodium Chloride 110 ml @ 27.5 mls/hr EVERY 8 HOURS IVPB 04/15/20 20:00 04/20/20 19:59 04/18/20 05:27 Polyethylene Glycol (Miralax) 17 gm HSPRN PRN ORAL Constipation 04/15/20 10:00 05/15/20 09:59 Promethazine HCl/ Codeine (Phenergan with Codeine) 5 ml Q4H PRN ORAL For Cough 04/15/20 10:00 05/15/20 09:59 Sitagliptin Phosphate (Januvia) 100 mg ACBREAKFAST ORAL 04/16/20 14:00 05/16/20 13:59 04/18/20 05:35 Tamsulosin HCl (Flomax) 0.4 mg BEDTIME ORAL 04/15/20 21:00 05/15/20 20:59 04/17/20 20:04 Temazepam (Restoril) 15 mg HSPRN PRN ORAL Insomnia 04/15/20 10:00 04/22/20 09:59 Vancomycin HCl (Vanco pharmacy to dose) 1 ea DAILY PRN MISC Per rx protocol 04/15/20 17:45 05/15/20 17:44 Vancomycin/Sodium Chloride 275 ml @ 183.333 mls/hr Q12H IVPB 04/17/20 11:00 04/22/20 10:59 04/17/20 22:50 Ramsey Ross MD Apr 18, 2020 06:41
[2020-04-18 07:14] LABS: ANION GAP 11 mmol/L (5-15); BLOOD UREA NITROGEN 9 mg/dL (7-18); CARBON DIOXIDE 26 MMOL/L (21-32); CHLORIDE 105 MMOL/L (98-107); CREATININE 1.1 MG/DL (0.55-1.30); POTASSIUM 3.4 MMOL/L (3.5-5.1); SODIUM 142 MMOL/L (136-145)
--- NOTE | 2020-04-18 07:20 | NUR ---
HAND-OFF: Report given to Enriqueta JUDGE. Patient is asleep resting comfortably in bed. In stable condition.
--- NOTE | 2020-04-18 07:45 | NUR ---
NURSE NOTES: Recd pt. Pt is AOx3-4, Pt is on room air with O2 sat 100% BP elevated 163/67-BP med scheduled. Neuro checks performed. No co/o n/v or chest pain. Bed in lowest locked position, will continue with plan of care
[2020-04-18 08:00] VITALS: BP 163/67
[2020-04-18] MEDS: Lisinopril 10mg tab ORAL SCH (08:46)
--- NOTE | 2020-04-18 08:47 | NUR ---
CASE MANAGEMENT:REVIEW 04/18/20 SI: ACUTE CVA. UTI 99.3 65 18 151/61 97% ON RA H/H-12.6/38.2 K-3.4 GLUCOSE+202 IS: IV VANCOMYCIN Q12 IV ZOSYN Q8HRS LISINOPRIL PO QD STARLIX PO TID AC LEVEMIR SQ QD JANUVIA PO QAM METFORMIN PO TID AC HEPARIN SQ Q12 FLOMAX PO QHS : TELEMETRY STATUS DCP: ACUTE REHAB PLAN: PATIENT HAS BEEN REFERRED TO AND ACCEPTED AT [facility] IS CURRENTLY WORKING ON OBTAINING AUTHORIZATION FROM [facility]
[2020-04-18] MEDS: Heparin 5000 units/ml inj SUBQ SCH ×2 (08:48→20:11)
--- NOTE | 2020-04-18 08:52 | NUR ---
DISCHARGE PLANNING PATIENT HAS BEEN REFERRED TO AND ACCEPTED AT [facility] [employer] IS CURRENTLY WORKING ON OBTAINING AUTHORIZATION FROM [employer] THIS NEUROSURGICAL PHYSICIAN ASSISTANT HAS BEEN IN CONTACT WITH NAIF QUINTANA @ [facility] T: [phone]
[2020-04-18] MEDS: Levemir Flexpen SUBQ SCH (08:54)
--- NOTE | 2020-04-18 10:00 | NUR ---
PT NOTE Attempted to see patient for PT treatment. Patient c/o R frontal headache rated at 5/10, Enriqueta JUDGE notified, treatment deferred due to c/o headache. Will re-attempt later as schedule permits.
--- NOTE | 2020-04-18 10:16 | NUR ---
NURSE NOTES: Pt complaining of right side headache radiating to the frontal lobe. Pt is stroke pt. BP 143/57, blood sugar 175, notified Dr Pelletier, awaiting further orders
[2020-04-18] MEDS: Vancomycin 1.25gm/NS Premix q24h IVPB SCH (10:41)
--- NOTE | 2020-04-18 11:01 | NUR ---
*-* INSURANCE *-* AVAILABLE CLINICALS HAVE BEEN FAXED TO: [employer]:ANKUSH JONES#[id number] P [phone] F [phone]
--- NOTE | 2020-04-18 11:49 | NUR ---
NURSE NOTES: Per Dr Burch no need to repeat CT head
[2020-04-18 12:00] VITALS: BP 141/60
--- NOTE | 2020-04-18 12:25 | Internal Med Progress Note ---
Subjective Date of Service: Apr 18, 2020 Physician Name AudraMasoud Attending Physician Celestine Burch MD Current Medications Medications (Trade) Dose Ordered Sig/Sukhdeep Route PRN Reason Start Time Stop Time Status Last Admin Dose Admin Acetaminophen (Tylenol) 650 mg Q4H PRN ORAL fever 04/15/20 10:00 05/15/20 09:59 04/18/20 10:37 Albuterol/ Ipratropium (Albuterol/ Ipratropium) 3 ml Q4H PRN HHN Shortness of Breath 04/15/20 10:00 04/20/20 09:59 Alprazolam (Xanax) 0.5 mg Q6H PRN ORAL agitation 04/16/20 17:15 04/23/20 17:14 04/16/20 18:02 Clonidine HCl (Catapres Tab) 0.1 mg Q4H PRN ORAL For High Blood Pressure 04/15/20 10:00 07/14/20 09:59 04/16/20 18:02 Dextrose (Dextrose 50%) 25 ml Q30M PRN IV Hypoglycemia 04/16/20 12:45 07/15/20 12:44 Dextrose (Dextrose 50%) 50 ml Q30M PRN IV Hypoglycemia 04/16/20 12:45 07/15/20 12:44 Heparin Sodium (Porcine) (Heparin 5000 units/ml) 5,000 units EVERY 12 HOURS SUBQ 04/15/20 21:00 05/30/20 20:59 04/18/20 08:48 Insulin Aspart (NovoLOG) BEFORE MEALS AND HS SUBQ 04/15/20 21:00 07/14/20 20:59 04/18/20 11:30 Insulin Detemir (Levemir) 20 units DAILY SUBQ 04/16/20 14:00 07/15/20 13:59 04/18/20 08:54 Lisinopril (ZestriL) 10 mg DAILY ORAL 04/17/20 09:00 05/17/20 08:59 04/18/20 08:46 Metformin HCl (Glucophage) 500 mg TIAC ORAL 04/16/20 13:00 05/16/20 12:59 04/18/20 12:09 Nateglinide (Starlix) 60 mg TIAC ORAL 04/16/20 16:30 05/16/20 16:29 04/18/20 12:09 Nitroglycerin (Ntg) 0.4 mg Q5M X 3 DOSES PRN SL Prn Chest Pain 04/15/20 10:00 05/15/20 09:59 Ondansetron HCl (Zofran) 4 mg Q6H PRN IVP Nausea & Vomiting 04/15/20 10:00 05/15/20 09:59 Piperacillin Sod/ Tazobactam Sod 3.375 gm/Sodium Chloride 110 ml @ 27.5 mls/hr EVERY 8 HOURS IVPB 04/15/20 20:00 04/20/20 19:59 04/18/20 05:27 Polyethylene Glycol (Miralax) 17 gm HSPRN PRN ORAL Constipation 04/15/20 10:00 05/15/20 09:59 Promethazine HCl/ Codeine (Phenergan with Codeine) 5 ml Q4H PRN ORAL For Cough 04/15/20 10:00 05/15/20 09:59 Sitagliptin Phosphate (Januvia) 100 mg ACBREAKFAST ORAL 04/16/20 14:00 05/16/20 13:59 04/18/20 05:35 Tamsulosin HCl (Flomax) 0.4 mg BEDTIME ORAL 04/15/20 21:00 05/15/20 20:59 04/17/20 20:04 Temazepam (Restoril) 15 mg HSPRN PRN ORAL Insomnia 04/15/20 10:00 04/22/20 09:59 Vancomycin HCl (Vanco pharmacy to dose) 1 ea DAILY PRN MISC Per rx protocol 04/15/20 17:45 05/15/20 17:44 Vancomycin/Sodium Chloride 275 ml @ 183.333 mls/hr Q12H IVPB 04/17/20 11:00 04/22/20 10:59 04/18/20 10:41 Allergies: Coded Allergies: NO ALLERGY INFORMATION AVAILABLE (Verified Allergy, Unknown, 04/15/20) NO KNOWN DRUG ALLERGIES (Verified Allergy, Unknown, 04/15/20) ROS Limited/Unobtainable: No Constitutional: Reports: weakness HEENT: Reports: no symptoms Cardiovascular: Reports: no symptoms Respiratory: Reports: no symptoms Gastrointestinal/Abdominal: Reports: no symptoms Genitourinary: Reports: no symptoms Neurologic/Psychiatric: Reports: numbness Subjective 74 YO M admitted with altered mental status and left side weakness. Now acute right post cerebral artery CVA. Cover for Int Madhu- Dr Burch Objective Last Vital Signs Date Time Temp Pulse Resp B/P (MAP) Pulse Ox O2 Delivery O2 Flow Rate FiO2 04/18/20 12:00 99.7 75 20 141/60 (87) 96 04/18/20 09:00 Room Air Laboratory Tests Test 04/17/20 19:58 04/18/20 05:20 04/18/20 05:25 04/18/20 10:11 POC Whole Blood Glucose 221 MG/DL (74-106) H 197 MG/DL (74-106) H 176 MG/DL (74-106) H White Blood Count 3.9 K/UL (4.8-10.8) L Red Blood Count 4.44 M/UL (4.70-6.10) L Hemoglobin 12.6 G/DL (14.2-18.0) L Hematocrit 38.2 % (42.0-52.0) L Mean Corpuscular Volume 86 FL (80-99) Mean Corpuscular Hemoglobin 28.3 PG (27.0-31.0) Mean Corpuscular Hemoglobin Concent 32.9 G/DL (32.0-36.0) Red Cell Distribution Width 13.0 % (11.6-14.8) Platelet Count 153 K/UL (150-450) Mean Platelet Volume 9.0 FL (6.5-10.1) Neutrophils (%) (Auto) 53.9 % (45.0-75.0) Lymphocytes (%) (Auto) 33.4 % (20.0-45.0) Monocytes (%) (Auto) 7.8 % (1.0-10.0) Eosinophils (%) (Auto) 2.6 % (0.0-3.0) Basophils (%) (Auto) 2.3 % (0.0-2.0) H Sodium Level 142 MMOL/L (136-145) Potassium Level 3.4 MMOL/L (3.5-5.1) L Chloride Level 105 MMOL/L (98-107) Carbon Dioxide Level 26 MMOL/L (21-32) Anion Gap 11 mmol/L (5-15) Blood Urea Nitrogen 9 mg/dL (7-18) Creatinine 1.1 MG/DL (0.55-1.30) Estimat Glomerular Filtration Rate > 60 mL/min (>60) Glucose Level 202 MG/DL (74-106) H Calcium Level 9.0 MG/DL (8.5-10.1) Microbiology Date/Time Source Procedure Growth Status 04/15/20 18:25 Blood Blood Culture - Preliminary NO GROWTH AFTER 48 HOURS Resulted 04/15/20 18:15 Blood Blood Culture - Preliminary NO GROWTH AFTER 48 HOURS Resulted 04/16/20 14:40 Nasopharynx SARS-CoV-2 RdRp Gene Assay - Final Complete 04/15/20 21:30 Nasopharynx SARS-CoV-2 RdRp Gene Assay - Final Complete 04/15/20 21:30 Urine,Clean Catch Urine Culture - Final Gram Positive Cocci Complete Intake and Output 04/17/20 04/18/20 19:00 07:00 Intake Total 960 ml 827.5 ml Output Total 550 ml Balance 960 ml 277.5 ml Intake Oral 960 ml 400 ml IV Total 427.5 ml Output Urine Total 550 ml # Voids 1 3 Objective PHYSICAL EXAMINATION: GENERAL: The patient is well-developed and well-nourished male in no apparent distress. HEENT: Eyes, pupils are equal and responsive to light and accommodation. Extraocular movements are intact. NECK: Supple without lymphadenopathy. CHEST: Lungs are clear to auscultation bilaterally without wheezes or rales. CARDIOVASCULAR: Regular rhythm and rate. S1 and S2 normal without murmurs, rubs, or gallops. ABDOMEN: Soft, nontender, and nondistended. Positive bowel sounds. No evidence of hepatosplenomegaly. Currently, no rebound or guarding noted. EXTREMITIES: Negative for clubbing, cyanosis, or edema. RECTAL/GENITAL: Not performed. NEUROLOGIC: Motor strength is 4/5 on the left and 5/5 on the right. Deep tendon reflexes are 2+ plantar. Assessment/Plan Assessment/Plan ASSESSMENT: This is a 74-year-old male. 1. Altered mental status. 2. Left hemiplegia. 3. Acute cerebrovascular accident. 4. Hypertension. 5. Diabetes type 2. 6. Hypoglycemia. 7. Hypercholesteremia. TREATMENT: 1. Left hemiplegia/acute cerebrovascular accident. An MRI of the brain=acute right posterior cerebral artery cerebral vascular accident. A Neurology consultation has been obtained with Dr. Toby Maynard. We will follow recommendations of Neurology. 2. Altered mental status. This may be secondary to acute cerebrovascular accident versus hypoglycemia. 3. Hypertension. Continue antihypertensive medication as above. 4. Diabetes type 2. An endocrinology consult has been obtained with Dr Ramsey Ross. The patient has been placed on NovoLog sliding scale, levemir, januvia and starlix. 5. Hypercholesterolemia. Continue atorvastatin as above. 6. Discharge planning: acute rehab Masoud Zhu MD Apr 18, 2020 12:25
--- NOTE | 2020-04-18 12:52 | NUR ---
MOLD [employer]ER NOTES SPOKE WITH ALEXEY FROM [facility],VERIFIED HE RECEIVED CLINICALS ON 04/17/20 @ [id number]. PER ALEXEY HE WILL REVIEW THE DOCUMENTS AND FOLLOW UP. [id number]
--- NOTE | 2020-04-18 13:10 | NUR ---
NURSE NOTES: Pt still c/o headache.tylenol was given, headache not resolved. per dr Audra helms to order CT head
--- NOTE | 2020-04-18 13:11 | Pulmonology Progress Note ---
Subjective ROS Limited/Unobtainable: No Interval Events: more lethargic Allergies: Coded Allergies: NO ALLERGY INFORMATION AVAILABLE (Verified Allergy, Unknown, 04/15/20) NO KNOWN DRUG ALLERGIES (Verified Allergy, Unknown, 04/15/20) All Systems: reviewed and negative except above Objective Last 24 Hour Vital Signs Date Time Temp Pulse Resp B/P (MAP) Pulse Ox O2 Delivery O2 Flow Rate FiO2 04/18/20 12:00 99.7 75 20 141/60 (87) 96 04/18/20 12:00 70 04/18/20 11:16 100.0 04/18/20 09:00 Room Air 04/18/20 08:46 151/61 04/18/20 08:00 97.7 70 20 163/67 (99) 100 04/18/20 08:00 65 04/18/20 04:00 99.3 74 18 151/61 (91) 97 04/18/20 04:00 65 04/18/20 00:00 101.1 83 18 164/47 (86) 95 04/18/20 00:00 75 04/17/20 21:00 Room Air 04/17/20 20:00 98.2 70 18 156/71 (99) 96 04/17/20 20:00 71 04/17/20 16:00 85 04/17/20 16:00 98.7 62 20 140/72 (94) 98 Intake and Output 04/17/20 04/18/20 19:00 07:00 Intake Total 960 ml 827.5 ml Output Total 550 ml Balance 960 ml 277.5 ml Intake Oral 960 ml 400 ml IV Total 427.5 ml Output Urine Total 550 ml # Voids 1 3 General Appearance: WD/WN, no acute distress HEENT: normocephalic, atraumatic Respiratory: chest wall non-tender, lungs clear Cardiovascular: normal peripheral pulses, normal rate, regular rhythm Abdomen: normal bowel sounds, soft, non tender, no organomegaly Genitourinary: normal external genitalia Extremities: no cyanosis, no clubbing Skin: no lesions Neurologic: disoriented Microbiology Date/Time Source Procedure Growth Status 04/15/20 18:25 Blood Blood Culture - Preliminary NO GROWTH AFTER 48 HOURS Resulted 04/15/20 18:15 Blood Blood Culture - Preliminary NO GROWTH AFTER 48 HOURS Resulted 04/16/20 14:40 Nasopharynx SARS-CoV-2 RdRp Gene Assay - Final Complete 04/15/20 21:30 Nasopharynx SARS-CoV-2 RdRp Gene Assay - Final Complete 04/15/20 21:30 Urine,Clean Catch Urine Culture - Final Gram Positive Cocci Complete Laboratory Tests 04/17/20 19:58: POC Whole Blood Glucose 221H 04/18/20 05:20: White Blood Count 3.9L, Red Blood Count 4.44L, Hemoglobin 12.6L, Hematocrit 38.2L, Mean Corpuscular Volume 86, Mean Corpuscular Hemoglobin 28.3, Mean Corpuscular Hemoglobin Concent 32.9, Red Cell Distribution Width 13.0, Platelet Count 153, Mean Platelet Volume 9.0, Neutrophils (%) (Auto) 53.9, Lymphocytes (% ) (Auto) 33.4, Monocytes (%) (Auto) 7.8, Eosinophils (%) (Auto) 2.6, Basophils ( %) (Auto) 2.3H, Sodium Level 142, Potassium Level 3.4L, Chloride Level 105, Carbon Dioxide Level 26, Anion Gap 11, Blood Urea Nitrogen 9, Creatinine 1.1, Estimat Glomerular Filtration Rate > 60, Glucose Level 202H, Calcium Level 9.0 04/18/20 05:25: POC Whole Blood Glucose 197H 04/18/20 10:11: POC Whole Blood Glucose 176H Current Medications Medications (Trade) Dose Ordered Sig/Sukhdeep Route PRN Reason Start Time Stop Time Status Last Admin Dose Admin Acetaminophen (Tylenol) 650 mg Q4H PRN ORAL fever 04/15/20 10:00 05/15/20 09:59 04/18/20 10:37 Albuterol/ Ipratropium (Albuterol/ Ipratropium) 3 ml Q4H PRN HHN Shortness of Breath 04/15/20 10:00 04/20/20 09:59 Alprazolam (Xanax) 0.5 mg Q6H PRN ORAL agitation 04/16/20 17:15 04/23/20 17:14 04/16/20 18:02 Clonidine HCl (Catapres Tab) 0.1 mg Q4H PRN ORAL For High Blood Pressure 04/15/20 10:00 07/14/20 09:59 04/16/20 18:02 Dextrose (Dextrose 50%) 25 ml Q30M PRN IV Hypoglycemia 04/16/20 12:45 07/15/20 12:44 Dextrose (Dextrose 50%) 50 ml Q30M PRN IV Hypoglycemia 04/16/20 12:45 07/15/20 12:44 Heparin Sodium (Porcine) (Heparin 5000 units/ml) 5,000 units EVERY 12 HOURS SUBQ 04/15/20 21:00 05/30/20 20:59 04/18/20 08:48 Insulin Aspart (NovoLOG) BEFORE MEALS AND HS SUBQ 04/15/20 21:00 07/14/20 20:59 04/18/20 11:30 Insulin Detemir (Levemir) 20 units DAILY SUBQ 04/16/20 14:00 07/15/20 13:59 04/18/20 08:54 Lisinopril (ZestriL) 10 mg DAILY ORAL 04/17/20 09:00 05/17/20 08:59 04/18/20 08:46 Metformin HCl (Glucophage) 500 mg TIAC ORAL 04/16/20 13:00 05/16/20 12:59 04/18/20 12:09 Nateglinide (Starlix) 60 mg TIAC ORAL 04/16/20 16:30 05/16/20 16:29 04/18/20 12:09 Nitroglycerin (Ntg) 0.4 mg Q5M X 3 DOSES PRN SL Prn Chest Pain 04/15/20 10:00 05/15/20 09:59 Ondansetron HCl (Zofran) 4 mg Q6H PRN IVP Nausea & Vomiting 04/15/20 10:00 05/15/20 09:59 Piperacillin Sod/ Tazobactam Sod 3.375 gm/Sodium Chloride 110 ml @ 27.5 mls/hr EVERY 8 HOURS IVPB 04/15/20 20:00 04/20/20 19:59 04/18/20 05:27 Polyethylene Glycol (Miralax) 17 gm HSPRN PRN ORAL Constipation 04/15/20 10:00 05/15/20 09:59 Promethazine HCl/ Codeine (Phenergan with Codeine) 5 ml Q4H PRN ORAL For Cough 04/15/20 10:00 05/15/20 09:59 Sitagliptin Phosphate (Januvia) 100 mg ACBREAKFAST ORAL 04/16/20 14:00 05/16/20 13:59 04/18/20 05:35 Tamsulosin HCl (Flomax) 0.4 mg BEDTIME ORAL 04/15/20 21:00 05/15/20 20:59 04/17/20 20:04 Temazepam (Restoril) 15 mg HSPRN PRN ORAL Insomnia 04/15/20 10:00 04/22/20 09:59 Vancomycin HCl (Vanc pharmacy to dose) 1 ea DAILY PRN MISC Per rx protocol 04/15/20 17:45 05/15/20 17:44 Vancomycin/Sodium Chloride 275 ml @ 183.333 mls/hr Q12H IVPB 04/17/20 11:00 04/22/20 10:59 04/18/20 10:41 Assessment/Plan Problems: (1) Nosocomial pneumonia (2) Acute CVA (cerebrovascular accident) (3) History of diabetes mellitus (4) History of hypertension (5) BPH (benign prostatic hyperplasia) (6) Pituitary adenoma (7) Fever Assessment/Plan ALOC ? etiology. CT scan stat cxr showing LLL atelectasis vs infiltrate swallow study reviewed, regular diet with thick liquid were recommended. echocardiogram reviewed, mild Diastolic LV dysfunction MRI of brain reviewed: Pituitary adenoma visualized, Endo consult requested sliding scale Monitor BP, on lisinopril 10 mg qd, BP better than yesterday pt/ot pending Fritz Pelletier MD Apr 18, 2020 13:11
--- NOTE | 2020-04-18 13:49 | Infectious Diseases Prog Note ---
Assessment/Plan Assessment: SEpsis vs SIRS- ?source ?early PNA- ?aspiration -04/16 CXR: 1 Low lung volumes with bronchovascular crowding Mild retrocardiac opacity, representing atelectasis without or with consolidation. Otherwise no acute cardiopulmonary disease. If there is continued concern, recommend frontal and lateral chest radiographs or CT -04/15 CXR: no acute disease -u/a neg; ucx NTD -Bcx NTD Fever; persistent- COVID neg x2 - ?2ry to pituitary adenima Mild leukopenia -04/16 rapid COVID neg -04/15 rapid COVID neg Acute CVA ?Pituitary adenoma -Brain MRI: Acute right AUDIT TECH territorial infarct. Small sellar mass with signal characteristics suggesting pituitary adenoma.Consider further evaluation with dedicated MRI with contrast utilizing pituitary protocol on nonemergent basis. Dm2 HTN BPH HLD Plan: -Continue empiric IV Vancomycin and Zosyn #4 pending cultures -f/u cx -Monitor CBC/CMP, temperatures -COVID19 neg x2; remain isolation for now until afebrile >72hrs -aspiration precautions -Neuro eval -endo f/u -CXR, BCx x2, HIV ab sc, lipase, ESR, CRP Thank you for this consultation. Will continue to follow along with you. Discussed with RN. Subjective Allergies: Coded Allergies: NO ALLERGY INFORMATION AVAILABLE (Verified Allergy, Unknown, 04/15/20) NO KNOWN DRUG ALLERGIES (Verified Allergy, Unknown, 04/15/20) Tm 101.1 at RA Bcx NTD Objective Last 24 Hour Vital Signs Date Time Temp Pulse Resp B/P (MAP) Pulse Ox O2 Delivery O2 Flow Rate FiO2 04/18/20 12:00 99.7 75 20 141/60 (87) 96 04/18/20 12:00 70 04/18/20 11:16 100.0 04/18/20 09:00 Room Air 04/18/20 08:46 151/61 04/18/20 08:00 97.7 70 20 163/67 (99) 100 04/18/20 08:00 65 04/18/20 04:00 99.3 74 18 151/61 (91) 97 04/18/20 04:00 65 04/18/20 00:00 101.1 83 18 164/47 (86) 95 04/18/20 00:00 75 04/17/20 21:00 Room Air 04/17/20 20:00 98.2 70 18 156/71 (99) 96 04/17/20 20:00 71 04/17/20 16:00 85 04/17/20 16:00 98.7 62 20 140/72 (94) 98 Height (Feet): 5 Height (Inches): 10.00 Weight (Pounds): 213 GENERAL: The patient is well-developed and well-nourished male in no apparent distress. HEENT: Eyes, pupils are equal and responsive to light and accommodation. Extraocular movements are intact. CHEST: Lungs are clear to auscultation bilaterally without wheezes or rales. CARDIOVASCULAR: Regular rhythm and rate. S1 and S2 normal without murmurs, rubs, or gallops. ABDOMEN: Soft, nontender, and nondistended. Positive bowel sounds. EXTREMITIES: Negative for clubbing, cyanosis, or edema. Microbiology Date/Time Source Procedure Growth Status 04/15/20 18:25 Blood Blood Culture - Preliminary NO GROWTH AFTER 48 HOURS Resulted 04/15/20 18:15 Blood Blood Culture - Preliminary NO GROWTH AFTER 48 HOURS Resulted 04/16/20 14:40 Nasopharynx SARS-CoV-2 RdRp Gene Assay - Final Complete 04/15/20 21:30 Nasopharynx SARS-CoV-2 RdRp Gene Assay - Final Complete 04/15/20 21:30 Urine,Clean Catch Urine Culture - Final Gram Positive Cocci Complete Laboratory Tests Test 04/17/20 19:58 04/18/20 05:20 04/18/20 05:25 04/18/20 10:11 POC Whole Blood Glucose 221 MG/DL (74-106) H 197 MG/DL (74-106) H 176 MG/DL (74-106) H White Blood Count 3.9 K/UL (4.8-10.8) L Red Blood Count 4.44 M/UL (4.70-6.10) L Hemoglobin 12.6 G/DL (14.2-18.0) L Hematocrit 38.2 % (42.0-52.0) L Mean Corpuscular Volume 86 FL (80-99) Mean Corpuscular Hemoglobin 28.3 PG (27.0-31.0) Mean Corpuscular Hemoglobin Concent 32.9 G/DL (32.0-36.0) Red Cell Distribution Width 13.0 % (11.6-14.8) Platelet Count 153 K/UL (150-450) Mean Platelet Volume 9.0 FL (6.5-10.1) Neutrophils (%) (Auto) 53.9 % (45.0-75.0) Lymphocytes (%) (Auto) 33.4 % (20.0-45.0) Monocytes (%) (Auto) 7.8 % (1.0-10.0) Eosinophils (%) (Auto) 2.6 % (0.0-3.0) Basophils (%) (Auto) 2.3 % (0.0-2.0) H Sodium Level 142 MMOL/L (136-145) Potassium Level 3.4 MMOL/L (3.5-5.1) L Chloride Level 105 MMOL/L (98-107) Carbon Dioxide Level 26 MMOL/L (21-32) Anion Gap 11 mmol/L (5-15) Blood Urea Nitrogen 9 mg/dL (7-18) Creatinine 1.1 MG/DL (0.55-1.30) Estimat Glomerular Filtration Rate > 60 mL/min (>60) Glucose Level 202 MG/DL (74-106) H Calcium Level 9.0 MG/DL (8.5-10.1) Current Medications Medications (Trade) Dose Ordered Sig/Sukhdeep Route PRN Reason Start Time Stop Time Status Last Admin Dose Admin Acetaminophen (Tylenol) 650 mg Q4H PRN ORAL fever 04/15/20 10:00 05/15/20 09:59 04/18/20 10:37 Albuterol/ Ipratropium (Albuterol/ Ipratropium) 3 ml Q4H PRN HHN Shortness of Breath 04/15/20 10:00 04/20/20 09:59 Alprazolam (Xanax) 0.5 mg Q6H PRN ORAL agitation 04/16/20 17:15 04/23/20 17:14 04/16/20 18:02 Clonidine HCl (Catapres Tab) 0.1 mg Q4H PRN ORAL For High Blood Pressure 04/15/20 10:00 07/14/20 09:59 04/16/20 18:02 Dextrose (Dextrose 50%) 25 ml Q30M PRN IV Hypoglycemia 04/16/20 12:45 10/20/20 12:44 Dextrose (Dextrose 50%) 50 ml Q30M PRN IV Hypoglycemia 04/16/20 12:45 07/15/20 12:44 Heparin Sodium (Porcine) (Heparin 5000 units/ml) 5,000 units EVERY 12 HOURS SUBQ 04/15/20 21:00 05/30/20 20:59 04/18/20 08:48 Insulin Aspart (NovoLOG) BEFORE MEALS AND HS SUBQ 04/15/20 21:00 07/14/20 20:59 04/18/20 11:30 Insulin Detemir (Levemir) 20 units DAILY SUBQ 04/16/20 14:00 07/15/20 13:59 04/18/20 08:54 Lisinopril (ZestriL) 10 mg DAILY ORAL 04/17/20 09:00 05/17/20 08:59 04/18/20 08:46 Metformin HCl (Glucophage) 500 mg TIAC ORAL 04/16/20 13:00 05/16/20 12:59 04/18/20 12:09 Nateglinide (Starlix) 60 mg TIAC ORAL 04/16/20 16:30 05/16/20 16:29 04/18/20 12:09 Nitroglycerin (Ntg) 0.4 mg Q5M X 3 DOSES PRN SL Prn Chest Pain 04/15/20 10:00 05/15/20 09:59 Ondansetron HCl (Zofran) 4 mg Q6H PRN IVP Nausea & Vomiting 04/15/20 10:00 05/15/20 09:59 Piperacillin Sod/ Tazobactam Sod 3.375 gm/Sodium Chloride 110 ml @ 27.5 mls/hr EVERY 8 HOURS IVPB 04/15/20 20:00 04/20/20 19:59 04/18/20 13:13 Polyethylene Glycol (Miralax) 17 gm HSPRN PRN ORAL Constipation 04/15/20 10:00 05/15/20 09:59 Promethazine HCl/ Codeine (Phenergan with Codeine) 5 ml Q4H PRN ORAL For Cough 04/15/20 10:00 05/15/20 09:59 Sitagliptin Phosphate (Januvia) 100 mg ACBREAKFAST ORAL 04/16/20 14:00 05/16/20 13:59 04/18/20 05:35 Tamsulosin HCl (Flomax) 0.4 mg BEDTIME ORAL 04/15/20 21:00 05/15/20 20:59 04/17/20 20:04 Temazepam (Restoril) 15 mg HSPRN PRN ORAL Insomnia 04/15/20 10:00 04/22/20 09:59 Vancomycin HCl (Vanco pharmacy to dose) 1 ea DAILY PRN MISC Per rx protocol 04/15/20 17:45 05/15/20 17:44 Vancomycin/Sodium Chloride 275 ml @ 183.333 mls/hr Q12H IVPB 04/17/20 11:00 04/22/20 10:59 04/18/20 10:41 Meryl Robison M.D. Apr 18, 2020 13:49
--- NOTE | 2020-04-18 14:05 | Diagnostic Imaging Report ---
Indications: Altered mental status Technique: Spiral acquisitions obtained through the brain. Angled axial and coronal 5 x 5 mm slices were reconstructed. Total dose length product 1179 mGycm. CTDI vol(s) 53 mGy. Dose reduction achieved using automated exposure control Comparison: MRI dated 04/15/2020 Findings: There is an area of fairly low attenuation cytotoxic edema involving the right occipital lobe and extending into the posterior inferior temporal lobe and slightly into the parietal lobe, corresponding to the area of diffusion abnormality demonstrated on prior MRI. There is also a small focus of encephalomalacia of the right inferior temporal tip, also demonstrated is an area of encephalomalacia on prior MRI. The remainder of the ponce-white differentiation is normal. Old deep white matter infarcts are seen in the parietal deep white matter bilaterally. No acute hemorrhage. No mass effect nor midline shift. There is mild age-related prominence of the ventricles and extra axial CSF spaces. There are old bilateral basal ganglia lacunar infarcts, likewise evident on the prior MRI. 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 Impression: Evolving subacute right posterior cerebral artery distribution infarct, also demonstrated as an acute infarct on prior MRI of 04/15/2020. No evidence of hemorrhagic transformation demonstrated. Other chronic and age-related changes, as described, including multiple old infarcts. Negative for acute intracranial bleed or mass effect Fullness of the pituitary, likely related to suspected pituitary mass seen on prior MRI. Consider further evaluation with dedicated pituitary contrast MRI as clinically indicated. The CT scanner at [facility] is accredited by the [employer] and the scans are performed using protocols designed to limit radiation exposure to as low as reasonably achievable to attain images of sufficient resolution adequate for diagnostic evaluation.
--- NOTE | 2020-04-18 14:22 | NUR ---
NURSE NOTES: Notified Dr Pelletier of CT results
--- NOTE | 2020-04-18 15:33 | NUR ---
NURSE NOTES: Per Dr Pelletier, pt needs to be transferred to [facility] for higher level of care. Contacted Dr Burch to notify of request to transfer pt to [facility], awaiting call back
--- NOTE | 2020-04-18 15:58 | Diagnostic Imaging Report ---
Indication: Cough Technique: One view of the chest Comparison: 04/16/2020 Findings: The heart is borderline enlarged. The lungs and pleural spaces are clear. No significant interim change Impression: No acute process
[2020-04-18 16:00] VITALS: BP 146/62
--- NOTE | 2020-04-18 16:00 | NUR ---
NURSE NOTES: Notified Associate Chemist and CN of situatio
--- NOTE | 2020-04-18 16:16 | NUR ---
TRANSFER REQUEST RECEIVED MESSAGE FORM DR ESPINOZA REQUESTING TRANSFER TO [facility] FOR STROKE EXPLAINED DR GONZALES WILL NEED TO PLACE PATIENT ON THE LIST TO TRANSFER [employer] FAXED FACESHEET AND CLINICALS TO [facility] T: [phone] F: [phone] WAFER POLISHER CALLED [facility] AND SPOKE WITH [employer]OL[employer]O FAXED CLINICALS TO [facility] T: [phone] F: [phone] ESPINOZA'S PHONE NUMBER FOR MD TO MD CONVERSATION ALSO PROVIDED ROOM NUMBER AND NUMBER TO NURSES STATION Addendum: 04/18/20 at 1700 by GRANT PRECIADO LVN LVN CALLED [facility] WAS PLACED ON HOLD AND THEN A RECORDING CAME ON LEFT A MESSAGE REQUESTING TRANSFER AND PROVIDED NANCY'S PHONE NUMBER FAXED CLINCALS TO [facility] T: [phone] F: [phone]
--- NOTE | 2020-04-18 16:41 | NUR ---
NURSE NOTES: Neuro checks are being performed hourly. BP and pain being assessed
--- NOTE | 2020-04-18 16:59 | NUR ---
NURSE NOTES: Per Dr Pelletier, Dr Burch will be accepting physician at [facility]
--- NOTE | 2020-04-18 17:09 | NUR ---
NURSE NOTES: recvd order from Dr Pelletier to transfer pt to ICU in the meantime while transfer to [facility] is facilitated
--- NOTE | 2020-04-18 17:21 | NUR ---
DISCHARGE/TRANSFER: NOTE Call placed to [place] @ [facility] regarding transfer. was able to register this patient. P2P to be performed with MD Pelletier. Accepting @ [facility] is pending. Direct # to nurses station provided. call placed to Anabel at [facility] clinicals were received case is being reviewed. No accepting MDs at this time. Direct # to nurses station provided. f/u call placed to [facility] transfer [place] s/w Alethea. alethea confirmed that all clinicals were received. [facility] is not accepting this patient just on the basis of an evolving stroke needing to be seen by neurology or neurosurgery. Alethea stated that this patient has been here since 04/15/2020 and does not believe this transfer is urgent or appropriate. Reconsideration to be given if neurology is able to provide a reason for transfer.
--- NOTE | 2020-04-18 18:31 | Cardiology Progress Note ---
Assessment/Plan Assessment/Plan cva lat presentation htn dm prostate cancer s/p radiation seed implantation obesitt echo hyperdynamic lv with cavity obliteration awiat neuro input to see how aggressivelyto control bp no active cardiac sx [id number] Objective Last 24 Hour Vital Signs Date Time Temp Pulse Resp B/P (MAP) Pulse Ox O2 Delivery O2 Flow Rate FiO2 04/18/20 16:00 72 04/18/20 16:00 99.5 65 20 146/62 (90) 96 04/18/20 12:00 99.7 75 20 141/60 (87) 96 04/18/20 12:00 70 04/18/20 11:16 100.0 04/18/20 09:00 Room Air 04/18/20 08:46 151/61 04/18/20 08:00 97.7 70 20 163/67 (99) 100 04/18/20 08:00 65 04/18/20 04:00 99.3 74 18 151/61 (91) 97 04/18/20 04:00 65 04/18/20 00:00 101.1 83 18 164/47 (86) 95 04/18/20 00:00 75 04/17/20 21:00 Room Air 04/17/20 20:00 98.2 70 18 156/71 (99) 96 04/17/20 20:00 71 Intake and Output 04/17/20 04/18/20 19:00 07:00 Intake Total 960 ml 827.5 ml Output Total 550 ml Balance 960 ml 277.5 ml Intake Oral 960 ml 400 ml IV Total 427.5 ml Output Urine Total 550 ml # Voids 1 3 Laboratory Tests Test 04/17/20 19:58 04/18/20 05:20 04/18/20 05:25 04/18/20 10:11 POC Whole Blood Glucose 221 MG/DL (74-106) H 197 MG/DL (74-106) H 176 MG/DL (74-106) H White Blood Count 3.9 K/UL (4.8-10.8) L Red Blood Count 4.44 M/UL (4.70-6.10) L Hemoglobin 12.6 G/DL (14.2-18.0) L Hematocrit 38.2 % (42.0-52.0) L Mean Corpuscular Volume 86 FL (80-99) Mean Corpuscular Hemoglobin 28.3 PG (27.0-31.0) Mean Corpuscular Hemoglobin Concent 32.9 G/DL (32.0-36.0) Red Cell Distribution Width 13.0 % (11.6-14.8) Platelet Count 153 K/UL (150-450) Mean Platelet Volume 9.0 FL (6.5-10.1) Neutrophils (%) (Auto) 53.9 % (45.0-75.0) Lymphocytes (%) (Auto) 33.4 % (20.0-45.0) Monocytes (%) (Auto) 7.8 % (1.0-10.0) Eosinophils (%) (Auto) 2.6 % (0.0-3.0) Basophils (%) (Auto) 2.3 % (0.0-2.0) H Sodium Level 142 MMOL/L (136-145) Potassium Level 3.4 MMOL/L (3.5-5.1) L Chloride Level 105 MMOL/L (98-107) Carbon Dioxide Level 26 MMOL/L (21-32) Anion Gap 11 mmol/L (5-15) Blood Urea Nitrogen 9 mg/dL (7-18) Creatinine 1.1 MG/DL (0.55-1.30) Estimat Glomerular Filtration Rate > 60 mL/min (>60) Glucose Level 202 MG/DL (74-106) H Calcium Level 9.0 MG/DL (8.5-10.1) Microbiology Date/Time Source Procedure Growth Status 04/16/20 14:40 Nasopharynx SARS-CoV-2 RdRp Gene Assay - Final Complete 04/15/20 21:30 Nasopharynx SARS-CoV-2 RdRp Gene Assay - Final Complete 04/15/20 21:30 Urine,Clean Catch Urine Culture - Final Gram Positive Cocci Complete Dontae Dinh MD Apr 18, 2020 18:31
--- NOTE | 2020-04-18 18:49 | NUR ---
NURSE NOTES: Per Dr Pelletier cancel tx to ICU, still continue with transfer to [facility]
--- NOTE | 2020-04-18 19:05 | NUR ---
NURSE NOTES: Received report from NU Robison. Patient awake, alert in bed and nio respiratory distress noted. Pt responded back when introduced myself. No discomforts/ pain complained. Pt verbalized being tired and wants to rest. With Right AC 22G SL intact, patent and asymptomatic. Needs were attended. HOB elevated. Bed wheels are locked and side rails are locked. Continue plan of care.
[2020-04-18 20:00] VITALS: BP 165/79
[2020-04-18] MEDS: Tamsulosin 0.4mg cap ORAL SCH (20:10)
--- NOTE | 2020-04-18 20:45 | Consultation ---
DATE OF CONSULTATION: 04/18/2020 CARDIAC CONSULTATION CONSULTING PHYSICIAN: Dontae Dinh MD REFERRING PHYSICIAN: Fritz Pelletier MD REASON FOR REFERRAL: Hypertension and stroke. HISTORY OF PRESENT ILLNESS: This is an elderly gentleman whose information is obtained from the patient himself and from review of the patient's chart. It appears that the patient was urgently taken to the emergency room at [facility] on 04/15/2020. The patient apparently according to the chart at [facility], he was noted to have some weakness on one side with left-sided weakness apparently as presenting symptom. The patient apparently lives at home with family members who called EMS due to 1-2 days of intermittent confusion. Accu-Cheks that were checked by medical services were normal. The patient was taken to the emergency room at [facility], was outside of window of thrombolysis. He denies any fevers, chills, chest pain, or shortness of breath as per the [facility] staff. The patient eventually underwent a CT scan that showed a possible large area of the hypoattenuation within the right occipital and temporal lobes, likely reflecting an acute or subacute infarct. The patient was subsequently transferred to [facility] for further care. At the present time, he denies any chest pain. There is no PND. No orthopnea. No palpitations. No dizziness or lightheadedness. He tells me that he fell and hit his back to the tub and was brought to the emergency room for that. PAST MEDICAL HISTORY: Positive for diabetes and high blood pressure. He denies any history of heart attack. He has had some prostatic cancer that was treated with radiation seeds. No stroke previously. No hepatitis or tuberculosis. No asthma or emphysema. No ulcers. No kidney problems, liver problems, thyroid problems, anemia, arthritis, HIV, AIDS, blood clots, or bleeding disorders of any kind. ALLERGIES: He is not allergic to any medications. SOCIAL HISTORY: Denies any smoking, alcohol, or drugs. 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 REVIEW OF SYSTEMS: GASTROINTESTINAL: Positive for constipation. GENITOURINARY: Negative. He does have between 1 to 3 episodes of nocturia. PULMONARY: Denies any coughing, wheezing, or snoring. CONSTITUTIONAL: Denies any fever, chills, or night sweats. PHYSICAL EXAMINATION: GENERAL: Shows to be an elderly gentleman, obese, in no respiratory distress. VITAL SIGNS: Blood pressure has been ranging anywhere between 135/62 to 163/67. His temperature has been as high as 101.8 earlier today, but as low as 99.5 at the present time. NECK: Supple. No jugular venous distention. LUNGS: Clear to auscultation. CARDIAC: Regular rate and rhythm. No heaves or thrills. ABDOMEN: Soft, nontender. Positive bowel sounds. EXTREMITIES: There is no clubbing, cyanosis, or edema. NEUROLOGICAL: He is able to move all four extremities at this time. LABORATORY DATA: The patient's telemetry data shows purely sinus rhythm. There is no atrial fibrillation being noted on the telemetry strips and EKG has not been located. A CT scan of his head shows evolving subacute right posterior cerebral artery distribution infarction and also demonstrated an acute infarct on a prior MRI of 04/15/2020. No evidence of hemorrhagic transformation, fullness of the pituitary likely was related to a pituitary mass seen on a prior MRI as well. He has had 2 sets of blood cultures, so far negative. He has had 2 COVID tests, one is rapid and the other one is PCR, both of which have been negative. Urine is growing gram-positive cocci. Labs, white count 3.9, hemoglobin 12.6, and platelet count of 153,000. Sodium 142, potassium 3.4, chloride 105, bicarb 26, BUN of 9, creatinine 1.1, and glucose of 202. His calcium is 9, prolactin of 3.6, ACTH of 45. Sodium 142, potassium 4.0, chloride 105, bicarb 29, BUN of 10, creatinine 1.0. Liver function tests are normal. Magnesium was 1.9. Chest x-ray shows heart enlarged, pleural spaces are clear; no significant interim changes and no acute processes. ASSESSMENT AND PLAN: 1. CVA, late presentation. 2. Diabetes. 3. Hypertension history. 4. History of glaucoma. 5. History of prostate cancer, status post radiation seed implantation. This patient was seen in cardiac consultation. The patient appears to be doing relatively well from a cardiac point of view and awaits evaluation by Neurology. The patient's echocardiogram was personally reviewed and appears to be relatively hyperdynamic. There is some evidence of cavity obliteration. The valves are poorly visualized and unfortunately, no other information is obtainable at this time. The patient is able to move all four extremities. Await neurological input. I suppose he is about 2-3 days post stroke now. The patient's blood pressure should be maintained. Await information from Dr. Maynard to see how strictly to control the patient's blood pressure. We would at least administer some low doses of WAYNE inhibitors the patient has taken previously. His Lipitor will be continued and I will increase the dose to 80 mg for the time being. He is not on any antiplatelet agents. Clearance from Neurology needed before administering any antiplatelets. Dontae Dinh M.D. DR: Courtney JOB#: [id number] CC:
[2020-04-18] MEDS ORDERED: Atorvastatin 80mg tab ORAL SCH (21:00)
[2020-04-18] MEDS ORDERED: Vancomycin 1.5gm/NS Premix q24h IVPB SCH (23:00)
--- NOTE | 2020-04-18 23:15 | NUR ---
NURSE NOTES: Received a call and spoke to Cara () regarding patient's status. LN made aware regarding hvac project manager's notes about transfer. MAde her aware abotu patient's current condition taht he got all medicatiosn and right now is sleepi well. Addendum: 04/18/20 at 2318 by RAJIV Sneed RN Correction: Received a call and spoke to Cara () regarding patient's status. LN made aware regarding hvac project manager's notes about transfer. Made her aware about patient's current condition that he got all medications and right now is sleeping well. Made her aware that BRENT will note on the board any plans for tomorrow.
[2020-04-19] VITALS: BP 152/75
--- NOTE | 2020-04-19 | NUR ---
NURSE NOTES: Received a call from Miracle (RN) [facility] regarding patient transfer. Pt is okay for transfer as long as there's a bed available and D/C summary. Ask Miracle to call us back if there's a confirmed bed availability. Will call Dr Burch regarding DC order for transfer.
--- NOTE | 2020-04-19 00:16 | NUR ---
NURSE NOTES: Placed a call and spoke to Dr morales. Made him aware that Miracle RN from [facility] confirmed that patient is okay to be transferred as long as there's a bed availability and D/C summary. Stated patient is good to discharge to transfer to [facility] as long as there's a bed availability. Will inform the family about the plan.
[2020-04-19] MEDS ORDERED: ALPRAZOLAM0.5 MG PO (00:30)
--- NOTE | 2020-04-19 00:45 | NUR ---
NURSE NOTES: Placed a call and left a voice message to Dr Burch regarding patient's temperature of 101.8. Warm to hot to touch. No ALOC noted pt is asleep and able to follow commands. Awaiting for response. Provided medication and ice packs to Lower down temperature. Continue to monitor the patient.
--- NOTE | 2020-04-19 01:52 | NUR ---
NURSE NOTES: NU Roth [facility] called back and mentioned that they have bed available right now, however, we haven't received any response yet from Dr Burch regarding patient's increased temperature earlier of 101.8 and if pt is safe for transfer. Dr Robison made aware too of the increased temperature. Awaiting for Blood culture results. Pt is asleep at this time and no discomforts noted.
--- NOTE | 2020-04-19 03:29 | NUR ---
NURSE NOTES: Received a callback from Dr Burch. Made him aware about the latest Temperature of 99.[address] of [address] Ask Dr Burch for Medication reconciliation for discharge. Addendum: 04/19/20 at 0350 by RAJIV Sneed RN Made him aware also about the DC summary of the patient. Dr Burch said he will also do it
--- NOTE | 2020-04-19 03:50 | NUR ---
NURSE NOTES: Received a call from Dr Burch. He stated that he will do the medication reconciliation and DC summary in AM. Noted orders and carried out.
[2020-04-19 04:00] VITALS: BP 155/61
[2020-04-19] MEDS ORDERED: cefTRIAXone 1 GM in D5W 55 ML IVPB SCH (05:00)
[2020-04-19] MEDS: Piperacillin/Tazobactam 3.375 GM in NS 110 ML IVPB SCH ×2 (05:16→13:48)
[2020-04-19] MEDS: Nateglinide 60mg tab ORAL SCH ×3 (05:35→16:23)
[2020-04-19] MEDS: metFORMIN 500mg tab ORAL SCH ×3 (05:36→16:23)
[2020-04-19] MEDS: NovoLOG Insulin Flexpen SUBQ SCH ×3 (06:09→16:27)
[2020-04-19 06:34] LABS: APPEARANCE,URINE CLEAR; BILIRUBIN, URINE NEGATIVE (NEGATIVE); COLOR,URINE PALE YELLOW; GLUCOSE, URINE (UA) 1+ (NEGATIVE); KETONES,URINE 1+ (NEGATIVE); LEUKOCYTE ESTERASE ,URINE NEGATIVE (NEGATIVE); NITRITE,URINE NEGATIVE (NEGATIVE); PH,URINE 5 (4.5-8.0); PROTEIN,URINE NEGATIVE (NEGATIVE); UROBILINOGEN,URINE NORMAL MG/DL (0.0-1.0)
--- NOTE | 2020-04-19 07:10 | NUR ---
HAND-OFF: Report given to , Rn and Shanna RN. Patient asleep and VS stable. Endorsed to AM nurses to ff up with Dr Burch regarding DC summary and medications
--- NOTE | 2020-04-19 07:15 | NUR ---
NURSE NOTES: Received report from RAJIV RN. Pt in bed resting, no signs of acute respiratory distress, bed locked and in lowest position, IV patent running IV fluids, bed locked and in lowest position, bed alarm placed, call light within reach. Plan is to proceed with transfer to [facility] when bed becomes available.
[2020-04-19 08:00] VITALS: BP 151/67
--- NOTE | 2020-04-19 08:06 | NUR ---
NURSE NOTES: Left a message to Dr Burch to follow up regarding DC summary and med recon, for the pt to be transferred to [facility] today.
[2020-04-19] MEDS: Lisinopril 10mg tab ORAL SCH (08:42)
[2020-04-19] MEDS ORDERED: Tubing IV Secondary IV ONE (08:43)
[2020-04-19] MEDS: Heparin 5000 units/ml inj SUBQ SCH (08:47)
[2020-04-19] MEDS: Levemir Flexpen SUBQ SCH (08:58)
[2020-04-19 09:09] LABS: BASOPHILS % (AUTO) 1.8 % (0.0-2.0); EOSINOPHILS % (AUTO) 2.8 % (0.0-3.0); HEMATOCRIT 40.2 % (42.0-52.0); LYMPHOCYTES % (AUTO) 29.2 % (20.0-45.0); MEAN CORPUSCULAR VOLUME 86 FL (80-99); MONOCYTES % (AUTO) 7.6 % (1.0-10.0); NEUTROPHILS % (AUTO) 58.7 % (45.0-75.0); PLATELET COUNT 174 K/UL (150-450); RED BLOOD COUNT 4.67 M/UL (4.70-6.10); RED CELL DISTRIBUTION WIDTH 13.4 % (11.6-14.8); WHITE BLOOD COUNT 4.4 K/UL (4.8-10.8)
[2020-04-19 09:16] LABS: ANION GAP 9 mmol/L (5-15); BLOOD UREA NITROGEN 10 mg/dL (7-18); CALCIUM 9.3 MG/DL (8.5-10.1); CARBON DIOXIDE 26 MMOL/L (21-32); CHLORIDE 108 MMOL/L (98-107); CREATININE 1.1 MG/DL (0.55-1.30); POTASSIUM 3.9 MMOL/L (3.5-5.1); SODIUM 143 MMOL/L (136-145)
--- NOTE | 2020-04-19 10:15 | NUR ---
NURSE NOTES: Called Dr Burch to follow up regarding DC summary and med recon. Per MD, Dr Zhu will be covering for him. Per Dr Zhu, he is [place] his way [place] [facility]
--- NOTE | 2020-04-19 11:54 | History & Physical ---
History and Physical History & Physicial DISCHARGE SUMMARY: DATE OF ADMISSION: 04/15/2020 DATE OF DISCHARGE: 04/19/2020 CHIEF COMPLAINT: The patient is a 74-year-old male who presents with a chief complaint of left-sided weakness. HISTORY OF PRESENT ILLNESS: Began 1 to 2 days prior to admission, the patient began to experience confusion. The patient states one day previously he began to experience left-sided weakness. The patient initially presented to [facility] emergency room. The patient was transferred to [facility] for insurance purposes. The patient was admitted with left-sided weakness to rule out acute cerebrovascular accident. REVIEW OF SYSTEMS: CONSTITUTIONAL: The patient denies weight loss or weight gain. The patient denies fevers or chills. HEENT: The patient denies ear or throat pain. The patient denies headache. CARDIOVASCULAR: The patient denies palpitations or chest pain. CHEST: The patient denies wheeze or shortness of breath. ABDOMEN: The patient denies nausea, vomiting, diarrhea, or constipation. GENITOURINARY: The patient denies dysuria or increased frequency of urination. NEUROMUSCULAR: The patient denies seizures. The patient complains of left-sided weakness as above. PAST MEDICAL HISTORY: Significant for: 1. Hypertension. 2. Diabetes type 2. PAST SURGICAL HISTORY: The patient denies. CURRENT MEDICATIONS: 1. Amlodipine 5 mg p.o. daily. 2. Atorvastatin 40 mg p.o. daily. 3. Calcium/vitamin-D one tablet p.o. daily. 4. Disulfiram 500 mg p.o. daily. 5. Fenofibrate 145 mg p.o. daily. 6. Gabapentin 600 mg p.o. three times daily. 7. Gemfibrozil 600 mg p.o. twice daily. 8. Glipizide 10 mg p.o. twice daily. 9. Mehama 5/325 mg one tablet p.o. q.4 hours p.r.n. 10. Lantus insulin of an unknown dose at bedtime. 11. Lisinopril 20 mg p.o. daily. 12. Metformin 1000 mg p.o. twice daily. 13. Metoprolol 50 mg p.o. twice daily. 14. Niacin 500 mg p.o. daily. 15. Pantoprazole 40 mg p.o. daily. 16. Zocor 5 mg p.o. at bedtime. 17. Sitagliptin 50 mg p.o. daily. 18. Carafate 1 g p.o. four times daily. 19. Tamsulosin 0.4 mg p.o. daily. ALLERGIES: No known drug allergies. SOCIAL HISTORY: The patient is single, lives alone. The patient denies tobacco or alcohol use. PHYSICAL EXAMINATION: VITAL SIGNS: Temperature 97.9, respirations 18, pulse 68, blood pressure 130/56, oxygen saturation 98% on room air. GENERAL: The patient is well-developed and well-nourished male in no apparent distress. HEENT: Eyes, pupils are equal and responsive to light and accommodation. Extraocular movements are intact. NECK: Supple without lymphadenopathy. CHEST: Lungs are clear to auscultation bilaterally without wheezes or rales. CARDIOVASCULAR: Regular rhythm and rate. S1 and S2 normal without murmurs, rubs, or gallops. ABDOMEN: Soft, nontender, and nondistended. Positive bowel sounds. No evidence of hepatosplenomegaly. Currently, no rebound or guarding noted. EXTREMITIES: Negative for clubbing, cyanosis, or edema. RECTAL/GENITAL: Not performed. NEUROLOGIC: Motor strength is 4/5 on the left and 5/5 on the right. Deep tendon reflexes are 2+ plantar. Assessment/Plan Assessment/Plan Assessment/Plan ASSESSMENT: This is a 74-year-old male. 1. Altered mental status. 2. Left hemiplegia. 3. Acute cerebrovascular accident. 4. Hypertension. 5. Diabetes type 2. 6. Hypoglycemia. 7. Hypercholesteremia. TREATMENT: 1. Left hemiplegia/acute cerebrovascular accident. An MRI of the brain=acute right posterior cerebral artery cerebral vascular accident. A Neurology consultation has been obtained with Dr. Toby Maynard. We will follow recommendations of Neurology. 2. Altered mental status. This may be secondary to acute cerebrovascular accident versus hypoglycemia. 3. Hypertension. Continue antihypertensive medication as above. 4. Diabetes type 2. An endocrinology consult has been obtained with Dr Ramsey Ross. The patient has been placed on NovoLog sliding scale, levemir, januvia and starlix. 5. Hypercholesterolemia. Continue atorvastatin as above. 6. Discharge planning: acute rehab Masoud Zhu MD Apr 19, 2020 11:54
[2020-04-19 12:00] VITALS: BP 139/62
--- NOTE | 2020-04-19 12:01 | NUR ---
NURSE NOTES: Vancomycin not available, made pharmacy aware, waiting for medication.
[2020-04-19] MEDS ORDERED: NITRO0.4 SL (12:13)
[2020-04-19] MEDS ORDERED: ACETAMINOPHEN325 M1 ORAL (12:13)
[2020-04-19] MEDS ORDERED: CLONIDINE HCL0.1 MG ORAL (12:13)
[2020-04-19] MEDS ORDERED: NOVOLOG100 UNITS1 SUBQ (12:13)
[2020-04-19] MEDS ORDERED: XANAX0.5 MG ORAL (12:13)
[2020-04-19] MEDS ORDERED: HEPARIN SO5000 UNIT2 SUBQ (12:13)
[2020-04-19] MEDS ORDERED: LEVEMIR FL100 UNIT/1 SUBQ (12:13)
[2020-04-19] MEDS ORDERED: JANUVIA100 MG ORAL (12:13)
[2020-04-19] MEDS ORDERED: DUONEB 0.5-3(2.53 ML HHN (12:13)
[2020-04-19] MEDS ORDERED: LIPITOR80 MG ORAL (12:13)
[2020-04-19] MEDS ORDERED: GLUCOPHAGE500 MG ORAL (12:13)
[2020-04-19] MEDS ORDERED: FLOMAX0.4 MG ORAL (12:13)
[2020-04-19] MEDS ORDERED: STARLIX60 MG ORAL (12:13)
[2020-04-19] MEDS ORDERED: ZESTRIL10 M1 ORAL (12:13)
--- NOTE | 2020-04-19 12:17 | NUR ---
NURSE NOTES: Faxed DC Summary to Faye of [facility]. Per Faye, she will give a call back when a room is available.
[2020-04-19] MEDS ORDERED: Vancomycin 1.5gm/NS Premix q24h IVPB SCH (13:00)
--- NOTE | 2020-04-19 13:20 | NUR ---
*-*DISCHARGE PLANNING*-* S/W ADA AT [facility], SHE RECEIVED DISCHARGE SUMMARY, WILL CALL BACK WHEN ROOM# IS AVAILABLE FOR PATIENT TO BE DISCHARGED AND TRANSFER TO [facility].
--- NOTE | 2020-04-19 15:23 | NUR ---
*-*DISCHARGE PLANNING*-* PATIENT HAS BEEN REFERRED TO: [facility] P: [phone] S/W ADA AT [facility], SHE RECEIVED DISCHARGE SUMMARY, WILL CALL BACK WHEN ROOM# IS AVAILABLE FOR PATIENT TO BE DISCHARGED AND TRANSFER TO [facility].
--- NOTE | 2020-04-19 15:55 | NUR ---
*-*DISCHARGE PLANNING*-* PATIENT HAS BEEN ACCEPTED TO: [facility] P: [phone] S/W ADA AT [facility], SHE STATED WE CAN SET TRANSPORTATION FOR WILL CALL UNTIL WE RECEIVE A CALL FROM HER WHEN ROOM# IS AVAILABLE FOR PATIENT TO BE DISCHARGED AND TRANSFER TO [facility].
[2020-04-19 16:00] VITALS: BP 161/78
--- NOTE | 2020-04-19 17:09 | Cardiology Progress Note ---
Assessment/Plan Assessment/Plan stable from cardiac standpoint, no additional medications Subjective Subjective the patient reports no chest pain or dyspnea Objective Last 24 Hour Vital Signs Date Time Temp Pulse Resp B/P (MAP) Pulse Ox O2 Delivery O2 Flow Rate FiO2 04/19/20 16:23 161/78 04/19/20 16:00 97.6 62 19 161/78 (105) 98 04/19/20 12:00 98.0 62 19 139/62 (87) 98 04/19/20 11:24 60 04/19/20 10:09 65 04/19/20 09:00 Room Air 04/19/20 08:42 151/67 04/19/20 08:00 98.3 68 18 151/67 (95) 98 04/19/20 07:47 67 04/19/20 04:02 62 04/19/20 04:00 97.6 61 20 155/61 (92) 97 04/19/20 01:23 99.3 04/19/20 00:00 101.8 67 20 152/75 (100) 97 04/18/20 23:53 68 04/18/20 21:23 165/79 04/18/20 21:00 Room Air 04/18/20 20:00 98.5 77 20 165/79 (107) 96 04/18/20 19:59 76 General Appearance: lethargic Neck: no JVD Rhythm: NSR Cardiovascular: normal rate Respiratory/Chest: crackles/rales - few at bases Abdomen: soft Extremities: trace edema Intake and Output 04/18/20 04/19/20 19:00 07:00 Intake Total 876.33 ml 817.5 ml Output Total 550 ml Balance 876.33 ml 267.5 ml Intake Oral 400 ml 350 ml IV Total 476.33 ml 467.5 ml Output Urine Total 550 ml # Voids 4 3 Laboratory Tests Test 04/18/20 17:16 04/18/20 20:33 04/18/20 22:30 04/19/20 04:00 POC Whole Blood Glucose 151 MG/DL (74-106) H 200 MG/DL (74-106) H Vancomycin Level Trough 12.3 ug/mL (5.0-12.0) H Urine Color Pale yellow Urine Appearance Clear Urine pH 5 (4.5-8.0) Urine Specific [place] 1.015 (1.005-1.035) Urine Protein Negative (NEGATIVE) Urine Glucose (UA) 1+ (NEGATIVE) H Urine Ketones 1+ (NEGATIVE) H Urine Blood Negative (NEGATIVE) Urine Nitrite Negative (NEGATIVE) Urine Bilirubin Negative (NEGATIVE) Urine Urobilinogen Normal MG/DL (0.0-1.0) Urine Leukocyte Esterase Negative (NEGATIVE) Urine RBC 0 /HPF (0 - 0) Urine WBC 0 /HPF (0 - 0) Urine Squamous Epithelial Cells Occasional /LPF Urine Bacteria Occasional /HPF (NONE) Test 04/19/20 04:58 04/19/20 08:20 04/19/20 08:50 04/19/20 11:43 POC Whole Blood Glucose 161 MG/DL (74-106) H 118 MG/DL (74-106) H 143 MG/DL (74-106) H White Blood Count 4.4 K/UL (4.8-10.8) L Red Blood Count 4.67 M/UL (4.70-6.10) L Hemoglobin 13.0 G/DL (14.2-18.0) L Hematocrit 40.2 % (42.0-52.0) L Mean Corpuscular Volume 86 FL (80-99) Mean Corpuscular Hemoglobin 27.8 PG (27.0-31.0) Mean Corpuscular Hemoglobin Concent 32.3 G/DL (32.0-36.0) Red Cell Distribution Width 13.4 % (11.6-14.8) Platelet Count 174 K/UL (150-450) Mean Platelet Volume 9.0 FL (6.5-10.1) Neutrophils (%) (Auto) 58.7 % (45.0-75.0) Lymphocytes (%) (Auto) 29.2 % (20.0-45.0) Monocytes (%) (Auto) 7.6 % (1.0-10.0) Eosinophils (%) (Auto) 2.8 % (0.0-3.0) Basophils (%) (Auto) 1.8 % (0.0-2.0) Erythrocyte Sedimentation Rate 34 MM/HR (0-20) H Sodium Level 143 MMOL/L (136-145) Potassium Level 3.9 MMOL/L (3.5-5.1) Chloride Level 108 MMOL/L (98-107) H Carbon Dioxide Level 26 MMOL/L (21-32) Anion Gap 9 mmol/L (5-15) Blood Urea Nitrogen 10 mg/dL (7-18) Creatinine 1.1 MG/DL (0.55-1.30) Estimat Glomerular Filtration Rate > 60 mL/min (>60) Glucose Level 144 MG/DL (74-106) H Calcium Level 9.3 MG/DL (8.5-10.1) C-Reactive Protein, Quantitative 1.4 mg/dL (0.00-0.90) H Lipase 146 U/L (73-393) HIV (1&2) Antibody Rapid Negative (NEGATIVE) Test 04/19/20 16:25 POC Whole Blood Glucose Pending Microbiology Date/Time Source Procedure Growth Status 04/19/20 04:15 Nasopharynx SARS-CoV-2 RdRp Gene Assay - Final Complete Gina Arrington MD Apr 19, 2020 17:09
--- NOTE | 2020-04-19 17:42 | NUR ---
NURSE NOTES: Received a call from Faye. Report given to Faye of [facility]. Per Faye, pt will be in room [address] [place] [id number]. Cara, , made aware of the transfer. Spoke with Fam of [facility]ulance [facility] to schedule the will-call pickup to be at 1830. Fam confirmed the pickup time.
[2020-04-19 18:00] VITALS: BP 151/54
--- NOTE | 2020-04-19 18:38 | Infectious Diseases Prog Note ---
Assessment/Plan Assessment: SEpsis vs SIRS- ?source ?early PNA- ?aspiration -04/16 CXR: 1 Low lung volumes with bronchovascular crowding Mild retrocardiac opacity, representing atelectasis without or with consolidation. Otherwise no acute cardiopulmonary disease. If there is continued concern, recommend frontal and lateral chest radiographs or CT -04/15 CXR: no acute disease -u/a neg; ucx NTD -Bcx NTD Fever; persistent- COVID neg x3 - ?2ry to pituitary adenima - HIV ab sc,: neg ESR : 34 , CRP: 1,4 , lipase, : Nl Mild leukopenia -04/16 rapid COVID neg -04/15 rapid COVID neg Acute CVA ?Pituitary adenoma -Brain MRI: Acute right NAVAL ARCHITECT SPECIALIST territorial infarct. Small sellar mass with signal characteristics suggesting pituitary adenoma.Consider further evaluation with dedicated MRI with contrast utilizing pituitary protocol on nonemergent basis. Dm2 HTN BPH HLD Plan: - Add Merrem # 1 -Continue empiric IV Vancomycinn # 6 and DC Zosyn # 6 pending cultures -f/u cx -Monitor CBC/CMP, temperatures -COVID19 neg x2; remain isolation for now until afebrile >72hrs -aspiration precautions -Neuro eval -endo f/u -CXR, BCx x2, , - CT C/A.P -2DEcho Thank you for this consultation. Will continue to follow along with you. Discussed with RN. Subjective Allergies: Coded Allergies: NO ALLERGY INFORMATION AVAILABLE (Verified Allergy, Unknown, 04/15/20) NO KNOWN DRUG ALLERGIES (Verified Allergy, Unknown, 04/15/20) Sp fever earlier Objective Last 24 Hour Vital Signs Date Time Temp Pulse Resp B/P (MAP) Pulse Ox O2 Delivery O2 Flow Rate FiO2 04/19/20 16:23 161/78 04/19/20 16:00 97.6 62 19 161/78 (105) 98 04/19/20 12:00 98.0 62 19 139/62 (87) 98 04/19/20 11:24 60 04/19/20 10:09 65 04/19/20 09:00 Room Air 04/19/20 08:42 151/67 04/19/20 08:00 98.3 68 18 151/67 (95) 98 04/19/20 07:47 67 04/19/20 04:02 62 04/19/20 04:00 97.6 61 20 155/61 (92) 97 04/19/20 01:23 99.3 04/19/20 00:00 101.8 67 20 152/75 (100) 97 04/18/20 23:53 68 04/18/20 21:23 165/79 04/18/20 21:00 Room Air 04/18/20 20:00 98.5 77 20 165/79 (107) 96 04/18/20 19:59 76 Height (Feet): 5 Height (Inches): 10.00 Weight (Pounds): 213 HEENT: atraumatic Respiratory/Chest: lungs clear Cardiovascular: regularly irregular Microbiology Date/Time Source Procedure Growth Status 04/19/20 04:15 Nasopharynx SARS-CoV-2 RdRp Gene Assay - Final Complete Laboratory Tests Test 04/18/20 20:33 04/18/20 22:30 04/19/20 04:00 04/19/20 04:58 POC Whole Blood Glucose 200 MG/DL (74-106) H 161 MG/DL (74-106) H Vancomycin Level Trough 12.3 ug/mL (5.0-12.0) H Urine Color Pale yellow Urine Appearance Clear Urine pH 5 (4.5-8.0) Urine Specific [place] 1.015 (1.005-1.035) Urine Protein Negative (NEGATIVE) Urine Glucose (UA) 1+ (NEGATIVE) H Urine Ketones 1+ (NEGATIVE) H Urine Blood Negative (NEGATIVE) Urine Nitrite Negative (NEGATIVE) Urine Bilirubin Negative (NEGATIVE) Urine Urobilinogen Normal MG/DL (0.0-1.0) Urine Leukocyte Esterase Negative (NEGATIVE) Urine RBC 0 /HPF (0 - 0) Urine WBC 0 /HPF (0 - 0) Urine Squamous Epithelial Cells Occasional /LPF Urine Bacteria Occasional /HPF (NONE) Test 04/19/20 08:20 04/19/20 08:50 04/19/20 11:43 04/19/20 16:25 White Blood Count 4.4 K/UL (4.8-10.8) L Red Blood Count 4.67 M/UL (4.70-6.10) L Hemoglobin 13.0 G/DL (14.2-18.0) L Hematocrit 40.2 % (42.0-52.0) L Mean Corpuscular Volume 86 FL (80-99) Mean Corpuscular Hemoglobin 27.8 PG (27.0-31.0) Mean Corpuscular Hemoglobin Concent 32.3 G/DL (32.0-36.0) Red Cell Distribution Width 13.4 % (11.6-14.8) Platelet Count 174 K/UL (150-450) Mean Platelet Volume 9.0 FL (6.5-10.1) Neutrophils (%) (Auto) 58.7 % (45.0-75.0) Lymphocytes (%) (Auto) 29.2 % (20.0-45.0) Monocytes (%) (Auto) 7.6 % (1.0-10.0) Eosinophils (%) (Auto) 2.8 % (0.0-3.0) Basophils (%) (Auto) 1.8 % (0.0-2.0) Erythrocyte Sedimentation Rate 34 MM/HR (0-20) H Sodium Level 143 MMOL/L (136-145) Potassium Level 3.9 MMOL/L (3.5-5.1) Chloride Level 108 MMOL/L (98-107) H Carbon Dioxide Level 26 MMOL/L (21-32) Anion Gap 9 mmol/L (5-15) Blood Urea Nitrogen 10 mg/dL (7-18) Creatinine 1.1 MG/DL (0.55-1.30) Estimat Glomerular Filtration Rate > 60 mL/min (>60) Glucose Level 144 MG/DL (74-106) H Calcium Level 9.3 MG/DL (8.5-10.1) C-Reactive Protein, Quantitative 1.4 mg/dL (0.00-0.90) H Lipase 146 U/L (73-393) HIV (1&2) Antibody Rapid Negative (NEGATIVE) POC Whole Blood Glucose 118 MG/DL (74-106) H 143 MG/DL (74-106) H Pending Current Medications Medications (Trade) Dose Ordered Sig/Sukhdeep Route PRN Reason Start Time Stop Time Status Last Admin Dose Admin Acetaminophen (Tylenol) 650 mg Q4H PRN ORAL fever 04/15/20 10:00 05/15/20 09:59 04/19/20 00:53 Albuterol/ Ipratropium (Albuterol/ Ipratropium) 3 ml Q4H PRN HHN Shortness of Breath 04/15/20 10:00 04/20/20 09:59 Alprazolam (Xanax) 0.5 mg Q6H PRN ORAL agitation 04/16/20 17:15 04/23/20 17:14 04/16/20 18:02 Atorvastatin Calcium (Lipitor) 80 mg BEDTIME ORAL 04/18/20 21:00 07/17/20 20:59 04/18/20 20:10 Ceftriaxone Sodium 1 gm/ Dextrose 55 ml @ 110 mls/hr Q24H IVPB 04/19/20 05:00 04/26/20 04:59 04/19/20 04:37 Clonidine HCl (Catapres Tab) 0.1 mg Q4H PRN ORAL For High Blood Pressure 04/15/20 10:00 07/14/20 09:59 04/19/20 16:23 Dextrose (Dextrose 50%) 25 ml Q30M PRN IV Hypoglycemia 04/16/20 12:45 07/15/20 12:44 Dextrose (Dextrose 50%) 50 ml Q30M PRN IV Hypoglycemia 04/16/20 12:45 07/15/20 12:44 Heparin Sodium (Porcine) (Heparin 5000 units/ml) 5,000 units EVERY 12 HOURS SUBQ 04/15/20 21:00 05/30/20 20:59 04/19/20 08:47 Insulin Aspart (NovoLOG) BEFORE MEALS AND HS SUBQ 04/15/20 21:00 07/14/20 20:59 04/19/20 11:55 Insulin Detemir (Levemir) 20 units DAILY SUBQ 04/16/20 14:00 07/15/20 13:59 04/19/20 08:58 Lisinopril (ZestriL) 10 mg DAILY ORAL 04/17/20 09:00 05/17/20 08:59 04/19/20 08:42 Metformin HCl (Glucophage) 500 mg TIAC ORAL 04/16/20 13:00 05/16/20 12:59 04/19/20 16:23 Nateglinide (Starlix) 60 mg TIAC ORAL 04/16/20 16:30 05/16/20 16:29 04/19/20 16:23 Nitroglycerin (Ntg) 0.4 mg Q5M X 3 DOSES PRN SL Prn Chest Pain 04/15/20 10:00 05/15/20 09:59 Ondansetron HCl (Zofran) 4 mg Q6H PRN IVP Nausea & Vomiting 04/15/20 10:00 05/15/20 09:59 Piperacillin Sod/ Tazobactam Sod 3.375 gm/Sodium Chloride 110 ml @ 27.5 mls/hr EVERY 8 HOURS IVPB 04/15/20 20:00 04/20/20 19:59 04/19/20 13:48 Polyethylene Glycol (Miralax) 17 gm HSPRN PRN ORAL Constipation 04/15/20 10:00 05/15/20 09:59 04/18/20 20:10 Promethazine HCl/ Codeine (Phenergan with Codeine) 5 ml Q4H PRN ORAL For Cough 04/15/20 10:00 05/15/20 09:59 Sitagliptin Phosphate (Januvia) 100 mg ACBREAKFAST ORAL 04/16/20 14:00 05/16/20 13:59 04/19/20 05:36 Tamsulosin HCl (Flomax) 0.4 mg BEDTIME ORAL 04/15/20 21:00 05/15/20 20:59 04/18/20 20:10 Temazepam (Restoril) 15 mg HSPRN PRN ORAL Insomnia 04/15/20 10:00 04/22/20 09:59 Vancomycin HCl (Vanco pharmacy to dose) 1 ea DAILY PRN MISC Per rx protocol 04/15/20 17:45 05/15/20 17:44 Vancomycin/Sodium Chloride 275 ml @ 137.5 mls/ hr Q12HR@0100,1300 IVPB 04/19/20 13:00 04/24/20 12:59 04/19/20 12:30 Cleve Rangel MD Apr 19, 2020 18:38
--- NOTE | 2020-04-19 18:50 | NUR ---
NURSE NOTES: Followed up with the ambulance regarding ETA. Per joy operator, ambulance personnel running late.
--- NOTE | 2020-04-19 19:15 | NUR ---
NURSE NOTES: RECEIVED REPORT FROM [facility]U [facility]. AAOX3-4, VERBALLY RESPONSIVE AND ABLE TO MAKE NEEDS KNOWN. NO COMPLAINTS OF PAIN OR DISCOMFORT AT THIS TIME. BREATHING IS EVEN AND UNLABORED ON ROOM AIR, NO S/SX OF DISTRESS NOTED. IV SITES ON RAC AND RIGHT WRIST PATENT, INTACT, ASYMPTOMATIC, SALINE-LOCKED. FALL PRECAUTIONS IMPLEMENTED. BED LOCKED AND IN LOWEST POSITION, SIDERAILS UP X 3. CALL LIGHT AND URINAL WITHIN REACH. PATIENT FOR DISCHARGE TO [facility] TONIGHT- REMINDED PATIENT OF PLAN, PATIENT VERBALIZED UNDERSTANDING. WILL CONTINUE TO MONITOR FOR ANY CHANGES.
--- NOTE | 2020-04-19 19:31 | NUR ---
HAND-OFF: Report given to [facility] [place]. Pt in stable condition, awaiting for ambulance to pick him up. Pt going to be transferred to [facility].
--- NOTE | 2020-04-19 19:35 | Pulmonology Progress Note ---
Subjective ROS Limited/Unobtainable: No Interval Events: more lethargic Allergies: Coded Allergies: NO ALLERGY INFORMATION AVAILABLE (Verified Allergy, Unknown, 04/15/20) NO KNOWN DRUG ALLERGIES (Verified Allergy, Unknown, 04/15/20) All Systems: reviewed and negative except above Objective Last 24 Hour Vital Signs Date Time Temp Pulse Resp B/P (MAP) Pulse Ox O2 Delivery O2 Flow Rate FiO2 04/19/20 18:00 97.6 63 20 151/54 (86) 98 04/19/20 16:23 161/78 04/19/20 16:00 97.6 62 19 161/78 (105) 98 04/19/20 15:45 66 04/19/20 12:00 98.0 62 19 139/62 (87) 98 04/19/20 11:24 60 04/19/20 10:09 65 04/19/20 09:00 Room Air 04/19/20 08:42 151/67 04/19/20 08:00 98.3 68 18 151/67 (95) 98 04/19/20 07:47 67 04/19/20 04:02 62 04/19/20 04:00 97.6 61 20 155/61 (92) 97 04/19/20 01:23 99.3 04/19/20 00:00 101.8 67 20 152/75 (100) 97 04/18/20 23:53 68 04/18/20 21:23 165/79 04/18/20 21:00 Room Air 04/18/20 20:00 98.5 77 20 165/79 (107) 96 04/18/20 19:59 76 Intake and Output 04/18/20 04/19/20 19:00 07:00 Intake Total 876.33 ml 817.5 ml Output Total 550 ml Balance 876.33 ml 267.5 ml Intake Oral 400 ml 350 ml IV Total 476.33 ml 467.5 ml Output Urine Total 550 ml # Voids 4 3 General Appearance: WD/WN, no acute distress HEENT: normocephalic, atraumatic Respiratory: chest wall non-tender, lungs clear Cardiovascular: normal peripheral pulses, normal rate, regular rhythm Abdomen: normal bowel sounds, soft, non tender, no organomegaly Genitourinary: normal external genitalia Extremities: no cyanosis, no clubbing Skin: no lesions Neurologic: disoriented Microbiology Date/Time Source Procedure Growth Status 04/19/20 04:15 Nasopharynx SARS-CoV-2 RdRp Gene Assay - Final Complete Laboratory Tests 04/18/20 20:33: POC Whole Blood Glucose 200H 04/18/20 22:30: Vancomycin Level Trough 12.3H 04/19/20 04:00: Urine Color Pale yellow, Urine Appearance Clear, Urine pH 5, Urine Specific [place] 1.015, Urine Protein Negative, Urine Glucose (UA) 1+H, Urine Ketones 1+H , Urine Blood Negative, Urine Nitrite Negative, Urine Bilirubin Negative, Urine Urobilinogen Normal, Urine Leukocyte Esterase Negative, Urine RBC 0, Urine WBC 0 , Urine Squamous Epithelial Cells Occasional, Urine Bacteria Occasional 04/19/20 04:58: POC Whole Blood Glucose 161H 04/19/20 08:20: White Blood Count 4.4L, Red Blood Count 4.67L, Hemoglobin 13.0L, Hematocrit 40.2L, Mean Corpuscular Volume 86, Mean Corpuscular Hemoglobin 27.8, Mean Corpuscular Hemoglobin Concent 32.3, Red Cell Distribution Width 13.4, Platelet Count 174, Mean Platelet Volume 9.0, Neutrophils (%) (Auto) 58.7, Lymphocytes (% ) (Auto) 29.2, Monocytes (%) (Auto) 7.6, Eosinophils (%) (Auto) 2.8, Basophils ( %) (Auto) 1.8, Erythrocyte Sedimentation Rate 34H, Sodium Level 143, Potassium Level 3.9, Chloride Level 108H, Carbon Dioxide Level 26, Anion Gap 9, Blood Urea Nitrogen 10, Creatinine 1.1, Estimat Glomerular Filtration Rate > 60, Glucose Level 144H, Calcium Level 9.3, C-Reactive Protein, Quantitative 1.4H, Lipase 146, HIV (1&2) Antibody Rapid Negative 04/19/20 08:50: POC Whole Blood Glucose 118H 04/19/20 11:43: POC Whole Blood Glucose 143H 04/19/20 16:25: POC Whole Blood Glucose [Pending] Current Medications Medications (Trade) Dose Ordered Sig/Sukhdeep Route PRN Reason Start Time Stop Time Status Last Admin Dose Admin Acetaminophen (Tylenol) 650 mg Q4H PRN ORAL fever 04/15/20 10:00 05/15/20 09:59 04/19/20 00:53 Albuterol/ Ipratropium (Albuterol/ Ipratropium) 3 ml Q4H PRN HHN Shortness of Breath 04/15/20 10:00 04/20/20 09:59 Alprazolam (Xanax) 0.5 mg Q6H PRN ORAL agitation 04/16/20 17:15 04/23/20 17:14 04/16/20 18:02 Atorvastatin Calcium (Lipitor) 80 mg BEDTIME ORAL 04/18/20 21:00 07/17/20 20:59 04/18/20 20:10 Clonidine HCl (Catapres Tab) 0.1 mg Q4H PRN ORAL For High Blood Pressure 04/15/20 10:00 07/14/20 09:59 04/19/20 16:23 Dextrose (Dextrose 50%) 25 ml Q30M PRN IV Hypoglycemia 04/16/20 12:45 07/15/20 12:44 Dextrose (Dextrose 50%) 50 ml Q30M PRN IV Hypoglycemia 04/16/20 12:45 07/15/20 12:44 Heparin Sodium (Porcine) (Heparin 5000 units/ml) 5,000 units EVERY 12 HOURS SUBQ 04/15/20 21:00 05/30/20 20:59 04/19/20 08:47 Insulin Aspart (NovoLOG) BEFORE MEALS AND HS SUBQ 04/15/20 21:00 07/14/20 20:59 04/19/20 11:55 Insulin Detemir (Levemir) 20 units DAILY SUBQ 04/16/20 14:00 07/15/20 13:59 04/19/20 08:58 Lisinopril (ZestriL) 10 mg DAILY ORAL 04/17/20 09:00 05/17/20 08:59 04/19/20 08:42 Meropenem 1 gm/ Sodium Chloride 55 ml @ 110 mls/hr Q8HR IVPB 04/19/20 20:00 04/24/20 19:59 Metformin HCl (Glucophage) 500 mg TIAC ORAL 04/16/20 13:00 05/16/20 12:59 04/19/20 16:23 Nateglinide (Starlix) 60 mg TIAC ORAL 04/16/20 16:30 05/16/20 16:29 04/19/20 16:23 Nitroglycerin (Ntg) 0.4 mg Q5M X 3 DOSES PRN SL Prn Chest Pain 04/15/20 10:00 05/15/20 09:59 Ondansetron HCl (Zofran) 4 mg Q6H PRN IVP Nausea & Vomiting 04/15/20 10:00 05/15/20 09:59 Polyethylene Glycol (Miralax) 17 gm HSPRN PRN ORAL Constipation 04/15/20 10:00 05/15/20 09:59 04/18/20 20:10 Promethazine HCl/ Codeine (Phenergan with Codeine) 5 ml Q4H PRN ORAL For Cough 04/15/20 10:00 05/15/20 09:59 Sitagliptin Phosphate (Januvia) 100 mg ACBREAKFAST ORAL 04/16/20 14:00 05/16/20 13:59 04/19/20 05:36 Tamsulosin HCl (Flomax) 0.4 mg BEDTIME ORAL 04/15/20 21:00 05/15/20 20:59 04/18/20 20:10 Temazepam (Restoril) 15 mg HSPRN PRN ORAL Insomnia 04/15/20 10:00 04/22/20 09:59 Vancomycin HCl (Vanco pharmacy to dose) 1 ea DAILY PRN MISC Per rx protocol 04/15/20 17:45 05/15/20 17:44 Vancomycin/Sodium Chloride 275 ml @ 137.5 mls/ hr Q12HR@0100,1300 IVPB 04/19/20 13:00 04/24/20 12:59 04/19/20 12:30 Assessment/Plan Problems: (1) Nosocomial pneumonia (2) Acute CVA (cerebrovascular accident) (3) History of diabetes mellitus (4) History of hypertension (5) BPH (benign prostatic hyperplasia) (6) Pituitary adenoma (7) Fever Assessment/Plan ALOC ? etiology. CT scan stat pt will be transferred to higher level of care cxr showing LLL atelectasis vs infiltrate swallow study reviewed, regular diet with thick liquid were recommended. echocardiogram reviewed, mild Diastolic LV dysfunction MRI of brain reviewed: Pituitary adenoma visualized, Endo consult requested sliding scale Monitor BP, on lisinopril 10 mg qd, BP better than yesterday pt/ot pending Fritz Pelletier MD Apr 19, 2020 19:35
--- NOTE | 2020-04-19 19:55 | NUR ---
NURSE NOTES: PATIENT PICKED UP BY [facility]; REPORT GIVEN TO MARÍA KENNEY. POSITIVE PRINTER OPERATOR TAKEN OFF. ALL BELONGINGS HANDED OVER TO EMT, INCLUDING MEDICATIONS AND GOLD RING ON LEFT INDEX FINGER. RIGHT WRIST AND RAC IV SITES PATENT, INTACT, ASYMPOMATIC AND SALINE-LOCKED. PATIENT IN STABLE CONDITION; V/S FOLLOWS: TEMP 98.9, BP 152/58, HR 66, SAO2 ON ROOM AIR 98%, RR 19.
[2020-04-19] MEDS ORDERED: Meropenem 1 GM in NS 55 ML IVPB SCH (20:00)
--- NOTE | 2020-04-21 13:00 | Discharge Summary ---
Discharge Summary Discharge Summary _ DATE OF ADMISSION: 04/15/2020 DATE OF DISCHARGE: 04/19/2020 DISCHARGED BY: Dr. Burch REASON FOR ADMISSION: 74 years old male, with past medical history of hypertension and diabetes mellitus, was taken by paramedics to [facility] with the chief complaint of intermittent confusion and left side weakness. Patient was outside of [facility] window on arrival. Patient subsequently was transferred to [facility] for further management. CONSULTANTS: spinning machine tender Dr. Dinh vp communications Dr. Ross pulmonary/critical care Dr. Pelletier ID specialist Dr. Rangel [facility]SE: Patient admitted telemetry floor. MRI of the brain revealed acute right SSIS DEVELOPER territorial infarct. Small sellar mass with signal characteristics suggesting pituitary adenoma. Carotid duplex revealed less than 50% diameter stenosis bilaterally. Echocardiogram revealed hyperdynamic left ventricle with cavity obliteration. No active cardiac symptoms. Antihypertensive regimen continued along with statin. Blood sugar was managed with long-acting Levemir , Starlix , Januvia - as per vp communications recommendation. Hemoglobin A1c 9.9. Diabetic diet and diabetic teaching provided. Hypoglycemia protocol was in place . Hormonal evaluation for pituitary adenoma was ordered , including prolactin, IGF-I, ACTH and cortisol, which all pending at the time of this dictation. Pulse oximetry remained stable on room air. Chest x-ray revealed low lung volumes with bronchovascular crowding. Mild retrocardiac opacity , representing atelectasis with or without consolidation. Otherwise no acute cardiopulmonary disease. Rapid COVID-19 was negative x2 on admission and prior to transfer. Blood cultures were negative. Urine culture revealed initially gram-positive cocci with colony count less than 10, and follow-up urine culture revealed no evidence of growth. Patient demonstrated leukopenia. HIV test was nonreactive. Per ID specialist patient had sepsis versus SIRS with unclear source , possible early pneumonia versus aspiration. Patient had persistent fever. COVID 19 was negative, as mentioned above. Fevers possibly due to pituitary adenoma. Patient was on empiric meropenem and prior completed 6 days of vancomycin and Zosyn. Fevers resolved on 04/19 . [facility] accepted patient for further management. Patient was stable for transfer. FINAL DIAGNOSES: Acute right SSIS DEVELOPER territorial infarct Pituitary adenoma Sepsis versus SIRS Nosocomial pneumonia , possible aspiration Persistent fevers Mild leukopenia Hypertension Diabetes mellitus Prostate cancer , status post radiation with seed implantation Obesity DISCHARGE MEDICATIONS: List of medication was sent to accepting facility. DISCHARGE INSTRUCTIONS: Patient was transferred to [facility] for further management. I have been assigned to dictate discharge summary for this account. I was not involved in the patient's management. Crystal Samuel NP Apr 21, 2020 13:00
--- NOTE | 2020-04-21 14:44 | NUR ---
*-* INSURANCE AUTH *-* RECEIVED A CALL FROM ZARINA ENCARNACION:ANKUSH AUTHORIZING STAY FROM 04/17- WITH A DISCHARGE OF 04/19/20 LOC MED SURG BLENDED AUTH# [id number]
--- NOTE | 2020-04-22 17:06 | NUR ---
*-* INSURANCE *-* DISCHARGE SUMMARY HAS BEEN FAXED TO: WHIT ENCARNACION:ANKUSH JONES#[id number] [phone] [phone]
== END 2020-04-19 19:59 | disposition critical access hospital, planned readmission (94) | DRG 64 ==
LOC: 2E 07:59
DX: I63.89 Other cerebral infarction (principal); J69.0 Pneumonitis due to inhalation of food and vomit; A41.9 Sepsis, unspecified organism; G81.94 Hemiplegia, unspecified affecting left nondominant side; I10 Essential (primary) hypertension; E11.649 Type 2 diabetes mellitus with hypoglycemia without coma; E78.00 Pure hypercholesterolemia, unspecified; Z20.828 Contact with and (suspected) exposure to other viral communicable diseases; D35.2 Benign neoplasm of pituitary gland; Z79.4 Long term (current) use of insulin; Z85.46 Personal history of malignant neoplasm of prostate; Z92.3 Personal history of irradiation; E66.9 Obesity, unspecified; H40.9 Unspecified glaucoma; N40.0 Benign prostatic hyperplasia without lower urinary tract symptoms
CPT/HCPCS: 36415; 70450; 70551; 71045; 80048; 80053; 80061; 80202; 81001; 82024; 82140; 82533; 82962; 83036; 83690; 83735; 84100; 84146; 84305; 84443; 85025; 85610; 85651; 85730; 86140; 86703; 87040; 87086; 93005; 93306; 93880; J1815; J8499; S5561; U0002